=== PATIENT | female | born 1970 | race Caucasian/White ===

== ENCOUNTER 2018-02-12 16:10 | Inpatient (IN) | payer OTHER ==
[~2018-02-12] VITALS: Ht 162.6 cm; Wt 66.3 kg
[~2018-02-12 16:10] MED LIST: ATIVAN0.5 M1 PO; BUPROPION300 MG; BUSPIRONE HCL10 M1 PO; BUSPIRONE HCL15 M1 PO; CLONIDINE0.2 MG; CYCLOBENZAPRINE10 M1 PO; CYCLOBENZAPRINE5 M2 PO; FLUOXETINE HYDR40 MG PO; GABAPENTIN300 M2 PO; LIDODERM 5% PAT1 PAT TOP; METHYLPHENIDATE20 M2 PO; MULTIVITAMIN1 TAB PO; NEURONTIN300 M1 PO; NUVIGIL250 M1 PO; NUVIGIL250 MG PO; ONCE DAILY1 EACH PO; OXYCODONE HCL5 M1 PO; PROAIR HFA0.09 MG/Ac INH; TIZANIDINE4 MG; TRAMADOL HCL50 M1 PO; TRAZODONE HCL100 M1 PO; VALACYCLOVIR1 GM PO
--- NOTE | 2018-02-12 16:15 | ED PSYCHIATRIC COMPLAINT ---
History of Present Illness General Chief Complaint: Psychiatric Related Complaint Stated Complaint: BIBA +SI, +ETOH POLICE PAPERED Source: patient, EMS, police Exam Limitations: intoxication Vital Signs & Intake/Output Vital Signs & Intake/Output Vital Signs Date Time Temp Pulse Resp B/P B/P Pulse O2 O2 Flow FiO2 Mean Ox Delivery Rate 02/14 1937 98.2 88 144/80 02/14 193 98.2 88 144/80 02/14 1615 92 128/78 02/14 1556 92 128/78 02/14 1231 100 132/78 02/14 1230 100 132/78 02/14 0805 98.2 93 121/87 Allergies Coded Allergies: Penicillins (PER PT WAS TOLD A KID 03/12/16) Reconcile Medications Albuterol Sulfate (Proair Hfa) 0.09 MG/Actuation BERNADETTE 2 PUFF INH PRN ASTHMA ( Reported) Armodafinil (Nuvigil) 250 MG TABLET 1 TAB PO DAILY SLEEP DISORDER (Reported) Buspirone HCl 15 MG TABLET 1 TAB PO BID MENTAL HEALTH Cyclobenzaprine HCl 5 MG TABLET 1 TAB PO TIDPRN MUSCLE SPASM FLUOXETINE HCL (Fluoxetine Hydrochloride) 40 MG CAP 1 CAP PO DAILY MENTAL HEALTH (Reported) Gabapentin 300 MG CAPSULE 2 TAB PO TID ANXIETY Lidocaine HCl (Lidoderm Patch) 5 % PAT 1 PAT TOP PRN PAIN (Reported) may wear up to 12 hours Lorazepam (Ativan) 0.5 MG TABLET 1 TAB PO TAPER Alcohol withdrawal Take 2 tablets tonight at 8pm Then take 1 tablet every at 8am and 8pm on tuesday03/24/16 Multivitamin (Once Daily) 1 EACH TABLET 1 TAB PO DAILY MULTIVITAMIN Oxycodone HCl 5 MG TABLET 1 TAB PO 5 TIMES A DAY PRN PAIN (Reported) Tramadol HCl 50 MG TABLET 1 TAB PO Q6P PRN PAIN (Reported) Trazodone HCl 100 MG TABLET 1-2 TAB PO QPM SLEEP (Reported) VALACYCLOVIR HCL (Valacyclovir) 1 GM TAB 1 TAB PO PRN COLD SORES (Reported) Triage Nurses Notes Reviewed? yes Onset: Abrupt Duration: unknown duration Timing: recent history HPI: 47-year-old female brought into the emergency room intoxicated with suicidal comments. Patient was brought in by ambulance and police. Patient was reportedly making suicidal comments to her friend over Facebook. She has a history of alcoholism. She denies any other illicit drug use. History is limited secondary to the fact the patient is intoxicated. She lives by herself. Police report that she was making multiple suicidal comments to them saying she wants to . She denies having any support. (Jarrod Blanc) Past History Travel History Traveled to [place] past 21 day No Medical History Any Pertinent Medical History? see below for history Neurological: NONE EENT: NONE Cardiovascular: NONE Respiratory: NONE Gastrointestinal: NONE Hepatic: NONE Renal: NONE Musculoskeletal: degen joint disease Psychiatric: depression, ADHD Endocrine: NONE Blood Disorders: NONE Cancer(s): NONE COUNTER HELP/Reproductive: NONE History of MRSA: No History of VRE: No History of CDIFF: No Surgical History Surgical History: NECK SURGERY, TONSILLECTOMY, CARPAL TUNNEL Psychosocial History Who do you live with Patient/Self Services at Home None What is your primary language Vietnamese Family History Family History, If Any: MOTHER Brain cancer Relation not specified for: *No pertinent family history Colon cancer in mother Hypertension in father Hx Contributory? No (Jarrod Blanc) Review of Systems Review of Systems Constitutional: Reports: no symptoms. EENTM: Reports: no symptoms. Respiratory: Reports: no symptoms. Cardiovascular: Reports: no symptoms. GI: Reports: no symptoms. Genitourinary: Reports: no symptoms. Musculoskeletal: Reports: no symptoms. Skin: Reports: no symptoms. Neurological/Psychological: Reports: see HPI. Hematologic/Endocrine: Reports: no symptoms. Immunologic/Allergic: Reports: no symptoms. All Other Systems: Reviewed and Negative (Jarrod Blanc) Physical Exam Physical Exam General Appearance: well developed/nourished, mild distress, intoxicated Head: atraumatic Eyes: Bilateral: normal appearance, EOMI. Ears, Nose, Throat: hearing grossly normal Neck: normal inspection Respiratory: no respiratory distress Extremities: normal range of motion Neurological/Psychiatric: awake, agitated Appearance/Memory/Insight: disheveled, impaired insight Behavoir/Eye Contact/Speech: avoids eye contact Thoughts/Hallucinations: incoherent Skin: intact, normal color, warm/dry (Jarrod Blanc) SAD PERSONS Done? CRISIS CONSULT OBTAINED (Nilda BUCKLEY,Dany White) Progress Differential Diagnosis: dementia, drug intoxication, drug overdose, drug withdrawal, electrolyte abnormality, encephalitis Plan of Care: Orders Procedure Date/time Status Regular Diet 02/14 B Active URINE 02/14 1255 Active INIT HSP (30 MIN) 02/14 UNK Complete Change service to 02/14 UNK Active Lab Add-on Test 02/14 UNK Active CIWA 02/14 UNK Active MISSING MEDICATION FORM 02/14 UNK Active Vital Signs 02/13 2158 Active Inpt Psych Teach/Educate 02/13 2158 Active Nutritional Intake, Monitor 02/13 2158 Active Inpt Psych Auricular Acupunctu 02/13 2158 Active Patient Data - inpatient psych 02/13 2130 Active Admit to inpatient psych 02/13 2130 Active Vital Signs 02/13 UNK Complete Activity/Ambulation 02/13 UNK Complete TSH REFLEX 02/12 1629 Complete TOTAL TRIODOTHYROXINE 02/12 1629 Complete LIPID PANEL 02/12 1629 Complete GLYCOSYLATED HGB 02/12 1629 Complete FREE T4 02/12 1629 Complete Current Medications Sig/Bailee Start time Last Medication Dose Stop Time Status Admin Fluoxetine HCl 50 MG DAILY 02/15 0900 AC (Prozac) Budesonide/ 2 PUF BID 02/14 2100 AC Formoterol Fumarate (SYMBICORT) Gabapentin 900 MG TID 02/14 2100 AC (Neurontin) Trazodone HCl 200 MG AT BEDTIME 02/14 2100 AC (Desyrel) Folic Acid 1 MG DAILY 02/14 1715 AC 02/14 (Folic Acid) 02/16 0901 1725 Lidocaine 1 PAT DAILY PRN 02/14 1715 AC (Lidoderm) Thiamine HCl 100 MG DAILY 02/14 1715 AC 02/14 (Vitamin B1) 02/16 0901 1725 Multivitamins 1 TAB DAILY 02/14 1701 AC 02/14 (Theragran Vitamins) 1726 Albuterol Sulfate 2 PUF Q6P PRN 02/14 1700 AC (Ventolin) Gabapentin 300 MG Q8P PRN 02/14 1700 AC (Neurontin) Acetaminophen 650 MG Q6P PRN 02/14 1030 AC (Tylenol) Al Hydroxide/Mg 30 ML Q4-6 PRN PRN 02/14 1030 AC Hydroxide (Maalox Plus) Benztropine Mesylate 1 MG Q6P PRN 02/14 1030 AC (Cogentin 1 MG Tablet) Benztropine Mesylate 1 MG Q6P PRN 02/14 1030 AC (Cogentin) Haloperidol 5 MG Q6P PRN 02/14 1030 AC (Haldol) Haloperidol 5 MG Q6P PRN 02/14 1030 AC (Haldol) Lorazepam 2 MG Q6P PRN 02/14 1030 AC (Ativan) Magnesium Hydroxide 30 ML AT BEDTIME NEED.. 02/14 1030 AC (Milk Of Magnesia) Nicotine 2 MG Q2P PRN 02/14 1030 AC (Nicotine) Buspirone HCl 15 MG BID 02/14 0900 AC 02/14 (Buspar) 1036 Methylphenidate HCl 20 MG DAILY 02/14 0900 AC 02/14 (Ritalin) 1037 Cyclobenzaprine HCl 5 MG TIDPRN 02/13 2200 AC (Flexeril 5MG Tab) Lorazepam 1 MG Q1 NEEDED PRN 02/13 2145 AC (Ativan) Lorazepam 2 MG Q1 NEEDED PRN 02/13 2145 AC (Ativan) Hand-Off Endorsed To: Roxi BUCKLEY,Nick Whitlock Endorsed Time: 2312 Pending: consult (crisis) (Jarrod Blanc) Departure Departure Disposition: STILL A PATIENT Condition: Stable Referrals: Willard Patel MD (PCP/Family) Departure Forms: Customer Survey General Discharge Information (Jarrod Blanc) Departure Clinical Impression Primary Impression: Suicidal ideation Secondary Impressions: Alcohol abuse Psych Admission Note Psychiatric Admission: I have seen and evaluated ATIF THOMAS. I have also reviewed all the pertinent lab results and diagnostic results. ATIF THOMAS will be admitted to our inpatient Psychiatric unit for treatment and care. (Nilda BUCKLEY,Dany White)
[2018-02-12 16:39] LABS: ABSOLUTE BASOPHIL COUNT 0 /CUMM (0.0-0.2); ABSOLUTE EOSINOPHIL COUNT 0.3 /CUMM (0.0-0.7); ABSOLUTE GRANULOCYTE CT 4.8 /CUMM (1.4-6.5); ABSOLUTE LYMPH COUNT 1.6 /CUMM (1.2-3.4); ABSOLUTE MONOCYTE COUNT 0.6 /CUMM (0.10-0.60); BASOPHIL % 0.3 % (0.0-2.0); EOSINOPHIL % 3.8 % (0-5); GRANULOCYTE % 65.6 % (42.2-75.2); HEMATOCRIT 42.2 % (37-47); MEAN CORPUSCULAR HGB 31.3 PG (27.0-31.0); MEAN CORPUSCULAR HGB CONC 33.3 G/DL (33.0-37.0); MEAN CORPUSCULAR VOLUME 94.1 FL (81.0-99.0); MEAN PLATELET VOLUME 6.7 FL (7.4-10.4); PLATELET COUNT 337 /CUMM (130-400); RBC DISTRIBUTION WIDTH 13.4 % (11.5-14.5); RED BLOOD CELL CT 4.49 /CUMM (4.20-5.40); WHITE BLOOD CELL COUNT 7.3 /CUMM (4.8-10.8)
--- NOTE | 2018-02-12 16:40 | ED PSY CRISIS COLLATERAL NOTE ---
Collateral Note Collateral Note Family/Inform/Lyla Contacts: Spoke to Alvaro Blanca listed in Emergency Contacts. He reported that Linda from [employer] [facility] [employer] [phone] had called him reporting that Diana had called her and said "goodbye" because she wanted to commit suicide. Linda, after calling Alvaro, called the police to conduct a wellness check, which then resulted in her being brought to the ED. Alvaro reported he had seen Diana this morning and "she's acting funny lately", i.e. she's not herself, more depressed, anxious about losing her house. He feels she's giving up and "throwing her hands up in the air". He stated he's "been there for her so much it's starting to become enabling" and so he is "going to do what he can and then walk". He encouraged us to keep her here because he is very concerned for her.
--- NOTE | 2018-02-13 07:51 | ED PSYCH CRISIS CONSULTATION ---
Crisis Consult Basic Assessment Date of Consult: 02/13/18 Responsible Person/Accompanied By: self/biba/peer Insurance Authorization: Insurance #1: Insurance name: SUSIE MARION Phone number: Policy number: [id number] Group number: Authorization number: ED Provider: Patient's ED Provider: Jarrod Blanc Primary Care Physician: Patient's PCP: Willard Patel MD PCP's Current Psychiatrist: medications are ordered by PCP Willard Patel [phone] Chief Complaint: Psychiatric Related Complaint Patient's Quote: I don't know why I"m here Present Illness: Pt is a 47 yo female biba yesterday to [facility] on a [place] [employer] PEER. PEER documents that pt made statements that she wants to and has plan to her Trazadone pills with alcohol. Pt ED BAL was 333 and tox screen was positive for cocaine.Former Counselor from [employer] notified 911 that she received a message yesterday from Diana thanking her for helping her but she cant take things anymore and was planning to kill herself. Previous medical record indicates prior SI while intoxicated and a possible suicide attempt by intentional pill overdose. Pt was admitted to [facility] in Aug 2015 for depression and substance use issues. Pt has a long hx of drug and alcohol abuse with several different attempts at detox and longer term rehabs. Pt most recently was in [facility] residential program and currently attends 1x/wk recovery group at [facility]. Pt reports recent relapse past two weeks with etoh and crack cocaine use. Pt reports primary trigger is feeling overwhelmed with planned foreclosure on February 13 and not knowing what she will do next. Pt appears to have limited supports other that friend Paresh. In ED pt refused attempt made by her sister Chinyere to contact her. Pt reports having no recollection of making suicide statements to [facility] Counselor or [place] [employer] due to intoxification. When collateral was gathered to piece the information together and presented back to pt she didn't dispute the idea of making said statements though she denies current SI. Pt denies HI; AH/VH; no prescence of psychotic thinking. Pt reports feeling hopeless and helpless; porr sleep; appetite and having no energy or motivation. Pt presents as sad with flat affect. Pt is OX3. CSSRS completed. Case reviewed with Dr Roger with recommendation for inpatient psychiatric treatment. Plan reviewed with pt agreeing to sign voluntary form for admission to [facility]. Patient's Address: [address] [place] [address] Other Who Do You Live With? Patient/Self Family/Informants Interviewed: Alvaro Owensd [phone]. see collateral note. Allergies - Coded Allergies: Penicillins (PER PT WAS TOLD A KID 03/12/16) Current Medications - Scheduled Medications Armodafinil (Nuvigil) 250 MG TABLET 1 TAB PO DAILY SLEEP DISORDER (Reported) Entered as Reported by Kathy Emery on 03/12/16 213 Buspirone HCl 15 MG TABLET 1 TAB PO BID MENTAL HEALTH 30 Days Prescribed by Ryan Rodriguez on 03/23/16 Cyclobenzaprine HCl 5 MG TABLET 1 TAB PO TIDPRN MUSCLE SPASM 30 Days Prescribed by Ryan Rodriguez on 03/23/16 FLUOXETINE HCL (Fluoxetine Hydrochloride) 40 MG CAP 1 CAP PO DAILY MENTAL HEALTH #30 (Reported) Entered as Reported by Kathy Emery on 08/08/15 1628 Gabapentin 300 MG CAPSULE 2 TAB PO TID ANXIETY 30 Days Prescribed by Ryan Rodriguez on 03/23/16 Lorazepam (Ativan) 0.5 MG TABLET 1 TAB PO TAPER Alcohol withdrawal #4 TAB Prescribed by Ryan Rodriguez on 03/23/16 Multivitamin (Once Daily) 1 EACH TABLET 1 TAB PO DAILY MULTIVITAMIN 30 Days Prescribed by Ryan Rodriguez on 03/23/16 Trazodone HCl 100 MG TABLET 1-2 TAB PO QPM SLEEP (Reported) Entered as Reported by Kathy Emery on 08/08/15 1630 Scheduled PRN Medications Albuterol Sulfate (Proair Hfa) 0.09 MG/Actuation BERNADETTE 2 PUFF INH PRN ASTHMA ( Reported) Entered as Reported by Kathy Emery on 08/08/15 1630 Lidocaine HCl (Lidoderm Patch) 5 % PAT 1 PAT TOP PRN PAIN #30 (Reported) Entered as Reported by Kathy Emery on 08/08/15 1632 Oxycodone HCl 5 MG TABLET 1 TAB PO 5 TIMES A DAY PRN PAIN (Reported) Entered as Reported by Kathy Emery on 08/08/15 1629 Tramadol HCl 50 MG TABLET 1 TAB PO Q6P PRN PAIN #120 (Reported) Entered as Reported by Kathy Emery on 03/12/16 2140 VALACYCLOVIR HCL (Valacyclovir) 1 GM TAB 1 TAB PO PRN COLD SORES #27 ( Reported) Entered as Reported by Kathy Emery on 08/08/15 1630 Laboratory Results: Laboratory Tests 02/12/18 1639: Urine Opiates Screen < 100, Methadone Screen < 40, Barbiturate Screen 62, Ur Phencyclidine Scrn < 6.00, Amphetamines Screen < 100, U Benzodiazepines Scrn < 85, Urine Cocaine Screen > 1000 H, Urine Cannabis Screen < 5.00 02/12/18 1629: Anion Gap 17 H, Estimated GFR > 60, BUN/Creatinine Ratio 25.0, Glucose 104 H, Calcium 9.0, Total Bilirubin 0.3, AST 35, ALT 23, Alkaline Phosphatase 79, Total Protein 6.6, Albumin 4.0, Globulin 2.6, Albumin/Globulin Ratio 1.5, CBC w Diff NO MAN DIFF REQ, RBC 4.49, MCV 94.1, MCH 31.3 H, MCHC 33.3, RDW 13.4, MPV 6.7 L, Gran % 65.6, Lymphocytes % 21.8, Monocytes % 8.5, Eosinophils % 3.8, Basophils % 0.3, Absolute Granulocytes 4.8, Absolute Lymphocytes 1.6, Absolute Monocytes 0.6, Absolute Eosinophils 0.3, Absolute Basophils 0, Serum Alcohol 333.0 Past History Past Medical History Neurological: NONE EENT: NONE Cardiovascular: NONE Respiratory: NONE Gastrointestinal: NONE Hepatic: NONE Renal: NONE Musculoskeletal: degen joint disease Psychiatric: depression, ADHD Endocrine: NONE Blood Disorders: NONE Cancer(s): NONE 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 Past Surgical History Surgical History: NECK SURGERY, TONSILLECTOMY, CARPAL TUNNEL Psychosocial History Strengths/Capabilities: Supportive family and friends Has interests like her cats, gardening, being outside Has had periods of sobriety in the past Physical Limitations (Interventions): Chronic back pain s/t degenerative disc disease Psychiatric Treatment History Psych Treatment Psychiatric Treatment Yes Inpatient Treatment Yes Outpatient Treatment Yes Location of Treatment [place] Aug 2015 [facility] Reason for Treatment SI/depression/etoh /polysubstance Response to Treatment pt has struggled with substance abuse issues; pt prescribed medications by PCP- Prozaaneudy and Trazadone Diagnosis by History: Major Depression, Alcohol Abuse, Opiate Abuse Substance Use/Abuse History Drug Use/Abuse 1 Substances Used/Abused Yes Substance Used/Abused Alcohol Last Used yesterday How much used/taken undetermined-BAL 330 How often daily past 2 weeks Drug Use/Abuse 2 Substances Used/Abused Yes Substance Used/Abused Crack Cocaine Last Used yesterday How often frequent use past 2 weeks Substance Abuse Treatment Substance Abuse Treatment Past Substance Abuse TX Yes Inpatient Treatment Yes Outpatient Treatment Yes Location of Treatment [facility]; [facility]; [facility]; [facility]; [facility]; [facility]; Reason for Treatment etoh/polysubstances Dates of Treatment long hx of tx programs Response to Treatment pt has had long periods of sobriety; multiple rehabs; recovery and relapse episodes past 3 yrs. Comments: Pt reports long hx of substance abuse and rehabs. Pt reports recently discharged from [facility] residential and recently relapsed. Pt reports recent undeterimed amout of etoh and cocaine Current Mental Status Mental Status Orientation: Person, Place, Situation Affect: Depressed, Flat, Hopeless, Sad Speech: WNL Neuro-vegetative: Anhedonia, Concentration Poor, Energy Decreased, Helpless, Loss of Interest, Sleep Disturbance Appearance Appearance- Dress/Hygiene: pt in hospital scrubs; somnalent/lethargic; reports head ache; flat; disheveled. Behaviors Thought Process: WNL Thought Content: WNL Memory: WNL Insight: Fair SI/HI Risk Assessment Past Suicidal Ideation/Attempts Yes Current Suicidal Ideation/Att Yes Past Homicidal Ideation/Att: No Current Homicidal Ideation/Attempts No Degree of Intent: Thoughts/No Intent Danger To: Self Gravely Disabled: Poor Impulse Control, Poor Judgment Risk Factors: access to lethal means, high anxiety/distress, history of suicide atmpts, SA/MH hospitalized, substance abuse, poor impulse control, lives alone, limited support Lethality Ratin PTSD Checklist PTSD Done? patient declined ED Management Sitter: Yes Restraints: Yes DSM5/PS Stressors/Medical Prob Diagnosis' (DSM 5, Stressors, Medical): Unspecified Depression F32.9 Alcohol Use D/O F10.20 Cocaine Use D/O F 12.20 foreclosure relapse Current GAF: 25 Comments: Pt reports feeling overwhelmed with foreclosure and having to move all her stuff out and find a new place to live by February 13. Pt reports recent relapse etoh and cocaine. Departure Disposition Psych Medical Clearance Date: 02/13/18 Medically Cleared at: 1015 Time Started: 1015 Time Ended: 1100 Psychiatrist Consulted: Maggy Roger MD Date Disposition Established: 02/13/18 Time Disposition Established: 1744 Plan for Disposition - Modality: Inpatient Psychiatry Facility: [facility] Rationale for Disposition: Mood stabilization; medication assessment Type of IP Admission: Voluntary Referrals Willard Patel MD (PCP/Family)
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
[2018-02-14] VITALS (7 sets, daily range): BP systolic 121–144; BP diastolic 78–87
--- NOTE | 2018-02-14 10:18 | History & Physical ---
General Information and HPI MD Statement: I have seen and personally examined ATIF THOMAS and documented this H&P. The patient is a 47 year old F who presented with a patient stated chief complaint of . "I don't know why I am here" Source of Information: patient, EMS Exam Limitations: unable to give history History of Present Illness: 47-year-old white female was brought in by ambulance cause of suicidal ideations and alcohol excess [employer] police paper he came to the ER intoxicated with suicidal comments in the ER blood alcohol level was 333 and oxycodone screen was positive for cocaine a recent relapse of alcohol 2 weeks ago also with crack cocaine use feeling overwhelmed with planned for closure of her house on February 13 Allergies/Medications Allergies: Coded Allergies: Penicillins (PER PT WAS TOLD A KID 03/12/16) Home Med list Albuterol Sulfate (Proair Hfa) 0.09 MG/Actuation BERNADETTE 2 PUFF INH PRN ASTHMA ( Reported) Armodafinil (Nuvigil) 250 MG TABLET 1 TAB PO DAILY SLEEP DISORDER (Reported) Buspirone HCl 15 MG TABLET 1 TAB PO BID MENTAL HEALTH Cyclobenzaprine HCl 5 MG TABLET 1 TAB PO TIDPRN MUSCLE SPASM FLUOXETINE HCL (Fluoxetine Hydrochloride) 40 MG CAP 1 CAP PO DAILY MENTAL HEALTH (Reported) Gabapentin 300 MG CAPSULE 2 TAB PO TID ANXIETY Lidocaine HCl (Lidoderm Patch) 5 % PAT 1 PAT TOP PRN PAIN (Reported) may wear up to 12 hours Lorazepam (Ativan) 0.5 MG TABLET 1 TAB PO TAPER Alcohol withdrawal Take 2 tablets tonight at 8pm Then take 1 tablet every at 8am and 8pm on tuesday03/24/16 Multivitamin (Once Daily) 1 EACH TABLET 1 TAB PO DAILY MULTIVITAMIN Oxycodone HCl 5 MG TABLET 1 TAB PO 5 TIMES A DAY PRN PAIN (Reported) Tramadol HCl 50 MG TABLET 1 TAB PO Q6P PRN PAIN (Reported) Trazodone HCl 100 MG TABLET 1-2 TAB PO QPM SLEEP (Reported) VALACYCLOVIR HCL (Valacyclovir) 1 GM TAB 1 TAB PO PRN COLD SORES (Reported) Compliance With Home Meds: UNKNOWN Past History Travel History Traveled to [place] past 21 day No Medical History Neurological: NONE EENT: NONE Cardiovascular: NONE Respiratory: NONE Gastrointestinal: NONE Hepatic: NONE Renal: NONE Musculoskeletal: degen joint disease Psychiatric: depression, ADHD Endocrine: NONE Blood Disorders: NONE Cancer(s): NONE 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 self Services at Home: None Primary Language: Hungarian ETOH Use: occasional use Illicit Drug Use: denies illicit drug use Functional Ability ADLs Independent: dressing, eating, toileting, bathing. Ambulation: independent IADLs Independent: shopping, housework, finances, food prep, telephone, transportation , medication admin. Review of Systems Review of Systems Constitutional: Reports: see HPI. Exam & Diagnostic Data Last 24 Hrs of Vital Signs/I&O Vital Signs Date Time Temp Pulse Resp B/P B/P Pulse O2 O2 Flow FiO2 Mean Ox Delivery Rate 02/14 0805 98.2 93 121/87 02/13 1906 98.1 80 18 113/65 97 Room Air 02/13 1528 98.6 99 18 113/68 93 Room Air Intake & Output 02/14 1600 02/14 0800 02/14 0000 Intake Total Output Total Balance Patient 146 lb Weight Physical Exam General Appearance Alert, Oriented X3, Cooperative, teary. Skin No Rashes, No Breakdown HEENT PERRLA, EOMI Neck Supple, No JVD, No thryomegaly, +2 Carotid Pulse wo Bruit, No LAD Lymphatic Axillary nl, Cervical nl Cardiovascular Regular Rate, No Murmurs Lungs Clear to Auscultation, Normal Air Movement Abdomen Soft, No Tenderness, No Hepatospenomegaly Neurological Exam Findings: Normal Speech, Strength at 5/5 X4 Ext, Normal Tone, Sensation Intact, Cranial Nerves 3-12 NL, Reflexes 2+ (gait not tested) Cranial Nerves II through XII: Intact Extremities No Edema, Normal Pulses, No Tenderness/Swelling Vascular Normal Pulses, Pulses Symmetrical Last 24 Hrs of Labs/Ollie: Laboratory Tests 02/12/18 1639: Urine Opiates Screen < 100, Methadone Screen < 40, Barbiturate Screen 62, Ur Phencyclidine Scrn < 6.00, Amphetamines Screen < 100, U Benzodiazepines Scrn < 85, Urine Cocaine Screen > 1000 H, Urine Cannabis Screen < 5.00 02/12/18 1629: Anion Gap 17 H, Estimated GFR > 60, BUN/Creatinine Ratio 25.0, Glucose 104 H, Calcium 9.0, Total Bilirubin 0.3, AST 35, ALT 23, Alkaline Phosphatase 79, Total Protein 6.6, Albumin 4.0, Globulin 2.6, Albumin/Globulin Ratio 1.5, CBC w Diff NO MAN DIFF REQ, RBC 4.49, MCV 94.1, MCH 31.3 H, MCHC 33.3, RDW 13.4, MPV 6.7 L, Gran % 65.6, Lymphocytes % 21.8, Monocytes % 8.5, Eosinophils % 3.8, Basophils % 0.3, Absolute Granulocytes 4.8, Absolute Lymphocytes 1.6, Absolute Monocytes 0.6, Absolute Eosinophils 0.3, Absolute Basophils 0, Serum Alcohol 333.0 Assessment/Plan As Ranked By This Provider Problem List: 1. Depression 2. Alcohol intoxication 3. Alcohol dependence Miscellaneous Miscellaneous Documentation Attending Case Discussed With: Maggy Roger MD Primary Care Physician: Willard Patel MD Patient sees these Specialists Psychiatry Level of Patient Care: [facility] Consults Needed: Consulting Specialty: Psychiatry Consulting Physician: Maggy Roger MD Reason for Consult: suicidal ideations, depression alcohol excess cocaine use
--- NOTE | 2018-02-14 14:33 | SOCIAL WORKER PROG NOTE PSYCH ---
Social Work Progress Note Progress Note Diana was in bed at 2pm. Introduced myself and prompted her to meet. She asked if we could me later. I told her my time was limited and I really would like to talk now if that was okay. She got up. She reported being very tired/ fatigued and unmotivated to do anything today. Tried to talk with her about what is happening. She gave me some information, but was not engaged in talking much today. She did report that she was drinking and "said something stupid" and that's why she was brought in. She doesn't remember what she said or who she said it to. She expressed feeling very overwhelmed with the idea that she will lose her house this coming Tuesday. She said she didn't realize she would only have a week to pack up and go. She said she doesn't know what to do and doesn't know where she is going. She has lived in this house for 10 years. She reports [facility] a [facility] years. I asked about her supports and who is available to help her? She mentioned her best friend Luis- who is also an ex-boyfriend. She said he has been there for her, but he is upset with her right now for drinking. She said she has not spoken with him since being here and will plan to call him trever. She refused to sign a release for him today. She said that she was clean and sober for 5 months. She was staying at [facility] for 5 months and reports being sober through that time. She has stayed connected with [facility] in [place] doing their relapse prevention group. She reports having a therapist there named Elza. Refused to sign a release for [facility] today as well. Denies SI today. Reported she really doesn't want to talk about things it's too much for her today. She was tearful. Wanted to return to bed. We ended our discussion at that point.
--- NOTE | 2018-02-14 16:56 | CPS PROVIDER INIT ASMT PSYCH ---
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 Chief Complaint: SI. Reaction to Hospitalization: "I don't mind being here but just have things to do." History of Present Illness Onset of Illness: Feeling more depressed x 1 month. Circumstances Leading to Admission: Served foreclosure/eviction notice. Problem(s) Justifying Need for Admission: SI. Other HPI: Feels "just tired." States she is here "because you guys made me stay." Has to be out of her home by 02/17/18. States that "I got really drunk, I guess. Sent out some stupid stuff." Doesn't remember details of suicidal comment(s). Reports she says "stupid stuff" when she drinks. States that she would never act on SI. Reports that she has nowhere to go and that nothing is packed. Feeling a little depressed x 1 month. Sleep: good. Appetite: alright. Energy: none since admission. Case and treatment plan discussed in team meeting. Staff reports that the patient is denying SI. CIWA zero. Past Psychiatric History Past Diagnosis(es)- if any: Apparent alcohol and cocaine hx. Past Precipitating Factors- if any: Unknown. - Include inpatient and outpatient treatment Treatment History: Sees Elza at [facility]. Hx multiple inpatient treatments, about 12x, since 1988 for drugs and alcohol. -[facility] in [place]. [facility] in [place]. [facility]. [place]. [facility]. History of Suicide Attempts or Gestures Denied. Substance Abuse History: Tobacco: 1/2 ppd. Alcohol: "don't drink that much." Bought a pint of vodka on Tuesday. Cocaine: smoked on Tuesday. Had been clean x 5 months. No other drugs. Allergies: Coded Allergies: Penicillins (PER PT WAS TOLD A KID 03/12/16) Home Med List: Prozac 40 mg daily. Trazodone 200 mg qhs. Gabapentin 900 mg tid. Nuvigil 250 mg daily. Inhalers, including Albuterol. Lidoderm patch prn. - Include any medical condition(s) that may - impact the patient's recovery/remission Past Medical History: Asthma. Back and neck issues from DJD. R carpal tunnel repair. Has L carpal tunnel. Arthritis. 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 Psychiatric Family/Social Hx Family History Psychiatric Illness: Denied. Substance Use: Father alcoholic. Suicides: Denied. Social History Living Situation: Lives alone. Significant Relationships (family/friends): . No children. Supports: sister, father, best friend, Luis, but doesn't want to bother them. Education: Some college. 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 Legal: Hx multiple arrests, including assault 2 years ago. Will be off probation on 03/04/18. Healthly Behaviors Screening Tobacco Screening Tobacco Use from ED Docu: Current Daily Use Daily Tobacco Use Amount/Type: => 5 Cigarettes daily - If tobacco counseling indicated - the following topics are required. - #1 Recognizing dangerous situations. - #2 Coping Skills. - #3 Basic information about quitting. Status of Tobacco Cessation Counseling: #1, #2 AND #3 Completed Cessation Med Status Nicotine Gum Ordered Alcohol Screening - ETOH screen POS if BAL >=80 or Audit-C>= M4/F3 Audit-C Score from Diag Assess: 12 Blood Alcohol Level: Laboratory Tests 02/12 1629 Toxicology Serum Alcohol (<10 MG/DL) 333.0 Alcohol Use Screening Results: Pos per Audit C &/or BAL - If ETOH counseling indicated - the following topics are required. - #1 Express concern about the patient's - drinking at unhealthy levels, include informing - of national norms for moderate drinking: - men <= 14 drinks/week, max 4 drinks/occasion - women <= 7 drinks/week, max 3 drinks/occasion - #2 Providing feedback, including linking alcohol to - negative physical effects (liver injury, hypertension) - negative emotional effects (relationship problems and - depression) - negative occupational consequences (reduced work - performance) - #3 Advising the patient to abstain from alcohol or - to drink below national norms for moderate drinking - (as listed above). Status of ETOH Use Counseling: #1, #2 AND #3 Completed. Metabolic Screening - Screen if on a Neuroleptic Medication - Metabolic screening should include: - Blood Pressure, BMI, Glucose or Hgb A1c, & a - Lipid profile from within the past 365 days. Metabolic Screening ([x]) Not Applicable, patient not on a neuroleptic. OR () Patient on a neuroleptic(s) . Enter below results for Hemoglobin A1C, and lipid panel if obtained during the last 365 days. BMI: 25.000 Blood Pressure: 128/78 Laboratory Results From [facility] (If applicable): Exam and Plan Mental Status Examination Ambulation Status: No gait disturbance. Appearance: Was asleep in her room but got up and met with us in office. WF, appears stated age. Attitude towards examiner: Calm, polite and cooperative. Psychomotor activity: No psychomotor agitation/retardation. Behavior: Unremarkable. Quality of speech: Normal in volume, rate and tone. Affect: Calm and depressed. Mood: "Alright/tired." Wants to go back to bed. Sad /10. Anxiety /10. Denies feeling hopeless or helpless. Feels worthless. Feels guilty for everything. Suicidal Ideation: Denies active SI. Has passive SI. Gives a safety promise for here. Homicidal Ideation: Denies HI. Hallucinations: Denies AH and VH. Paranoid/Delusional Material: Denies PI and magical montero. Difficulties with thought organization: None. Insight: Limited. Judgment: Was poor, better now. Orientation: Ox3. Cognition: Grossly intact. Memory Function: Grossly intact. Estimate of intellectual functioning: Average. Assets/Strengths Patient Identified Assets/Strengths: "I don't even know right now." Impression/Plan Impression and Plan: Patient is here with passive SI in the context of substance relapse and foreclosure. - Include all active medical diagnosis that require tx DSM 5 Diagnosis(es): Unspecified depression. Alcohol use disorder. Cocaine use disorder. - Initial Tx Plan for Active Psych & Medical Conditions Treatment Plan: Monitor on the unit for safety and mood disorder. Additional information is needed from collaterals: family, friend and OPT. Patient agrees to increase Prozac to 50 mg daily. Ritalin is substituting for Nuvigil. - Factors that would help patient function - in a less restrictive setting. Factors: Not suicidal.
[2018-02-15] VITALS (8 sets, daily range): BP systolic 109–130; BP diastolic 59–67
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
--- NOTE | 2018-02-15 11:34 | SOCIAL WORKER PROG NOTE PSYCH ---
Social Work Progress Note Progress Note Diana was up and attending groups this morning. She said she was having a better day today. She is on board with the idea of discharging tomorrow so she can take care of her housing situation. She said she slept well last night. I asked if she had called her friend Luis? She said she didn't last night and the phones were off during group. I offered to call together during our meeting. She said that was fine. We were able to reach Luis who was busy at work, but took a few minutes to talk. Diana was tearful. Luis told me that he often enables Diana and helps her out when she really should experience consequences. He said he will pick her up from the hospital, but she is not living with him and she'll have to figure that part out on her own. He said that "Sienna" was at her house. Apparently Diana told this person she could stay there. Diana uses with her. Diana said she's going to tell her to leave and she didn't see that as being a problem. Diana asked Luis if she can still work for him? He said yes, but he was not going to be bothering/ begging her to work and it was up to her. At that point Luis needed to get back to work so we ended the call. Diana was emotional stating he was right that he supports her alot. Asked her what her thoughts were about where she would be living? She said she really didn't know, but would figure it out. She said if worse came to worse Luis may pay for her to be in a hotel. She is grieving the loss of her things. She is anticipating only being able to take some clothes with her. She has a house full of stuff that has accumulated over 10 years. Despite all of this, she is trying to remain positive and hopeful that things will work out. I tried talking to her about aftercare at [facility]. She said she isn't sure if she is going to go back there. She feels like she needs to handle all of this other stuff right now. I said that was true, but she also could benefit from the support of someone to talk to. She agreed to sign a release for [facility] so we could fax her d /c paperwork. She then asked to stop the conversation stating "I can't talk about this anymore."
--- NOTE | 2018-02-15 13:48 | CP SOUTH PROGRESS NOTE PSYCH ---
Psych (Inpt) Progress Note Progress Note Include the following elements, when applicable: Involvement in the active treatment of the patient with behavioral observations of the patient and the patient's response to the treatment. Review of the ongoing treatment process in the context of the treatment plan. Indication of how multi-disciplinary staff members are carrying out the treatment plan. Plans for future interventions and recommendations for revision of the treatment plan. Liaison with other physicians/providers. Progress Note: Case and treatment plan discussed in team meeting. Staff reports that the patient is denying suicidal ideation. Isolating. Was not attending groups. CIWA negative. Patient seen at 10:25 AM. She was in group prior to meeting with me in office. Reports doing better today, stating she does not feel like being in bed and is not experiencing so much gloom and doom. Guesses she feels brighter but does not want to say that she is hopeful because she does not know what to be hopeful for. Denies withdrawal symptoms. Affect is calm and blunted, slightly brighter today. Tolerating increase in Prozac dose to 50 mg daily. Mood is okay. Rates sad mood 1-2/10 and anxiety probably 2/10. Denies feeling hopeless, helpless or worthless. Feels guilty for relapsing and hurting people. Denies active and passive suicidal ideation. Denies homicidal ideation. Denies auditory and visual hallucinations and paranoid ideation. Reports she slept well. Describes appetite as good and energy as okay. Tolerating medications well, without complaint. Patient reports she placed a call to her friend, Luis, and she is awaiting his call back. IMPRESSION: Slow progress. Continue present treatment plan. Patient confirms that she needs to get home for eviction on Tuesday. Anticipate discharge tomorrow with referral back to [facility].
[2018-02-16 07:31] VITALS: BP 104/60
[2018-02-16 07:51] VITALS: BP 104/60
--- NOTE | 2018-02-16 10:23 | SOCIAL WORKER PROG NOTE PSYCH ---
Social Work Progress Note Progress Note Dr. Kulkarni and I met with Diana this morning to discuss how she was doing and discharge plans. Diana reported that she was in a "good mood", but somewhat scared due to everything going on with her housing situation. She mentioned that she is going to try and talk to the bank to get an extension. She is hoping for that, but knows it may not happen and seems prepared. She denies any SI/HI, AH/VH. Feels a little sad and anxious given her circumstances. Talked about her follow up and how she would be supported when she leaves. She said that [facility] doesn't have a prescriber to see her, so she would be open to going to [facility]. She is currently on Ritalin, so I told her I would check with the IOP coordinator to see if she would be accepted. Called Jazmin Reilly (IOP Coordinator), informed her of the referral. She will accept Diana on Ritalin as long as she hasn't been abusing a stimulant. Dr. Kulkarni checked the PNP website and it does not appear that it has been misused. She can attend the 11:30 intake today. Informed Diana of this plan. Diana left at 11:30 for intake at [facility].
[2018-02-16] MEDS ORDERED: PROZAC10 M1 PO (10:30)
[2018-02-16] MEDS ORDERED: NICORELIEF2 MG PO (10:30)
[2018-02-16] MEDS ORDERED: PROZAC40 M1 PO (10:30)
[2018-02-16] MEDS ORDERED: RITALIN20 M1 PO (10:30)
[2018-02-16] MEDS ORDERED: ONCE DAILY1 EACH PO (10:30)
[2018-02-16] MEDS ORDERED: BUSPIRONE HCL15 M1 PO (10:30)
[2018-02-16] MEDS ORDERED: GABAPENTIN300 M2 PO ×2 (10:30→12:19)
[2018-02-16] MEDS ORDERED: TRAZODONE HCL100 M1 PO (10:30)
--- NOTE | 2018-02-16 10:38 | Patient Discharge Instructions ---
Psych Discharge Inst General Discharge Information Reason for Admission: Expressed suicidal ideation in the context of foreclosure, cocaine use and alcohol use. Psy Discharge Primary Diag+ Unspecified depression Psy Discharge Secondary Diag+ Hx ADHD Alcohol use disorder Cocaine use disorder Summary Tests/Major Procedures Lab ALT 23 U/L 02/12/18 1629 AST 35 U/L 02/12/18 1629 Anion Gap 17 H 02/12/18 1629 BUN 15 mg/dL 02/12/18 1629 Calcium 9.0 mg/dL 02/12/18 1629 Carbon Dioxide 25 mmol/L 02/12/18 1629 Chloride 106 mmol/L 02/12/18 1629 Cholesterol 188 MG/DL 02/12/18 1629 Cholesterol/HDL Ratio 3 % 02/12/18 1629 Creatinine 0.6 mg/dL 02/12/18 1629 Estimated GFR > 60 ml/min 02/12/18 1629 Free T4 1.62 ng/dL 02/12/18 1629 Glucose 104 mg/dL H 02/12/18 1629 HDL Cholesterol 62 mg/dL H 02/12/18 1629 Hemoglobin A1c 5.4 % 02/12/18 1629 LDL Cholesterol, Calc 109 mg/dL 02/12/18 1629 Potassium 3.7 mmol/L 02/12/18 1629 Sodium 148 mmol/L H 02/12/18 1629 TSH &T3 &Free T4 Intrp 0.089 uIU/mL L 02/12/18 1629 Total T3 0.91 ng/mL L 02/12/18 1629 Triglycerides 88 mg/dL 02/12/18 1629 Hct 42.2 % 02/12/18 1629 Hgb 14.1 G/DL 02/12/18 1629 MCH 31.3 PG H 02/12/18 1629 MPV 6.7 FL L 02/12/18 1629 Plt Count 337 /CUMM 02/12/18 1629 RBC 4.49 /CUMM 02/12/18 1629 WBC 7.3 /CUMM 02/12/18 1629 Serum Alcohol 333.0 MG/DL 02/12/18 1629 Urine Cocaine Screen > 1000 NG/ML H 02/12/18 1639 Urine Test NEGATIVE 02/15/18 0750 Studies Pending at [place]: None. Patient Instructions Contact Information Your Psychiatrist on Annie was Cayla BUCKLEY,Nick * If you are experiencing an emergency related to this hospitalization, please call [phone] to contact the treating psychiatrist or the psychiatrist-on- call. * To Request a copy of your medical records, please contact the Medical Records Department at [phone]. * To request results of studies pending at the time of discharge, please call [phone]. * Continue your Medications until directed to stop by your Healthcare provider. General Medication Information Please continue to take your new medications and your continued home medications , unless otherwise indicated on your discharge medication list, or unless directed by your MD or CASINO FLOOR SUPERVISOR to stop them. Special Instructions Diet Regular Activity Normal Other Inst/Recommendations Stay away from drugs and alcohol. Please see Dr. Patel re:low TSH. - Tobacco Use Treatment Offered Post DC Medications Offered: Script Given-See Med List Post DC Tobacco Treatment Plan: [facility] Tobacco Tx Pgm Program Appt Date: 03/01/18 Program Appt Time: 1600 - EtOH/Drug Use D/O Treatment Offered Post DC Medications Offered: Med Not Indicated for D/O Post DC EtOH/SubAbuse TX Plan: [facility] SubAbuse/Dual IOP Program Appt Date: 02/16/18 Program Appt Time: 1130 Metabolic Screening ([x]) Not Applicable, patient not on a neuroleptic. OR () Patient on a neuroleptic(s) . Enter below results for Hemoglobin A1C, and lipid panel if obtained during the last 365 days. BMI: 25.000 Blood Pressure: 104/60 Laboratory Results From [facility] E[facility] (If applicable): Advance Directives Does the Patient have Medical Advance Directives No/Refused further info Does Pt have Psychiatric Advance Directives? No/Refused further info Does Patient have a Designated Surrogate Decision Maker: No Information About Psychiatric Advance Directives Provided? Refused Discharge Plan Post Hospital Treatment Plan: Returning to home. Referred to [facility] intake today at 11:30 a.m.
--- NOTE | 2018-02-16 11:37 | SOCIAL WORKER PROG NOTE PSYCH ---
Social Work Progress Note Faxed Referral(s) Referred To: [facility] Transition of Care Documents sent: Health Summary Faxed to: [facility] Fax #: [phone] Faxed by: Kristel Mantilla Date faxed: 02/16/18 Time Faxed: [phone]
--- NOTE | 2018-02-16 13:25 | CP SOUTH PROGRESS NOTE PSYCH ---
Psych (Inpt) Progress Note Progress Note Include the following elements, when applicable: Involvement in the active treatment of the patient with behavioral observations of the patient and the patient's response to the treatment. Review of the ongoing treatment process in the context of the treatment plan. Indication of how multi-disciplinary staff members are carrying out the treatment plan. Plans for future interventions and recommendations for revision of the treatment plan. Liaison with other physicians/providers. Progress Note: Case and treatment plan discussed in team meeting. Staff reports that the patient is denying suicidal ideation. She was in bed most of the evening. Isolative. Said she is ready to go. Stated she wants to go home and move out. Patient seen at 9:52 AM with school social workerKristel, and with social work actuarial intern. Patient states she is okay today. Identifies foreclosure as a major problem. Plans to call the [employer] and "beg" for an extension. She reports she has accepted the fact that she has to move on. She is dressed in blue paper scrubs. Appears awake and alert. Affect is calm and blunted. Reports she is in a good mood. States she is a little scared but she is okay. States she is sad due to the situation. Rates overall sadness maybe a 3/10 and anxiety probably 4-5/10. Denies feeling hopeless, helpless or worthless. Does feel guilty. Denies active and passive suicidal ideation. Denies homicidal ideation. Denies auditory and visual hallucinations and paranoid ideation. Reports she slept well. Appetite is described as a good. Reports energy is okay, good. Tolerating medications well, without complaint. Reports feeling much better. Patient was advised to stay clean and sober. Patient is going to a [facility] IOP intake this morning. Feels ready and safe for discharge. IMPRESSION: Condition improved. Okay for discharge today to IOP intake then to home.
--- NOTE | 2018-02-16 13:31 | DISCHARGE SUMMARY REPORT-PSYCH ---
Visit Information Visit Dates/Diagnosis' Admission Date: 02/13/18 Discharge Date: 02/16/18 Reason for Admission: Expressed suicidal ideation in the context of foreclosure, cocaine use and alcohol use. Psy Discharge Primary Diag: Unspecified depression Psy Discharge Secondary Diag: Hx ADHD Alcohol use disorder Cocaine use disorder Hospital Course Significant Lab Findings: Lab ALT 23 U/L 02/12/18 1629 AST 35 U/L 02/12/18 1629 Anion Gap 17 H 02/12/18 1629 BUN 15 mg/dL 02/12/18 1629 Calcium 9.0 mg/dL 02/12/18 1629 Carbon Dioxide 25 mmol/L 02/12/18 1629 Chloride 106 mmol/L 02/12/18 1629 Cholesterol 188 MG/DL 02/12/18 1629 Cholesterol/HDL Ratio 3 % 02/12/18 1629 Creatinine 0.6 mg/dL 02/12/18 1629 Estimated GFR > 60 ml/min 02/12/18 1629 Free T4 1.62 ng/dL 02/12/18 1629 Glucose 104 mg/dL H 02/12/18 1629 HDL Cholesterol 62 mg/dL H 02/12/18 1629 Hemoglobin A1c 5.4 % 02/12/18 1629 LDL Cholesterol, Calc 109 mg/dL 02/12/18 1629 Potassium 3.7 mmol/L 02/12/18 1629 Sodium 148 mmol/L H 02/12/18 1629 TSH &T3 &Free T4 Intrp 0.089 uIU/mL L 02/12/18 1629 Total T3 0.91 ng/mL L 02/12/18 1629 Triglycerides 88 mg/dL 02/12/18 1629 Hct 42.2 % 02/12/18 1629 Hgb 14.1 G/DL 02/12/18 1629 MCH 31.3 PG H 02/12/18 1629 MPV 6.7 FL L 02/12/18 1629 Plt Count 337 /CUMM 02/12/18 1629 RBC 4.49 /CUMM 02/12/18 1629 WBC 7.3 /CUMM 02/12/18 1629 Serum Alcohol 333.0 MG/DL 02/12/18 1629 Urine Cocaine Screen > 1000 NG/ML H 02/12/18 1639 Urine Test NEGATIVE 02/15/18 0750 Course Complications: None. Consultations: The patient was seen for admission H&P by Dr. Willard Patel. Please refer to his note for additional information. Allergies: Coded Allergies: Penicillins (PER PT WAS TOLD A KID 03/12/16) Hospital Course/TX Response: The patient was monitored on the unit for safety, alcohol withdrawal and mood disturbance. She participated in multi-modal treatments on the unit. Ritalin substituted for Nuvigil (which is non-formulary here) for ADHD. Prozac dose was increased to 50 mg daily. Neurontin was continued. Mood and affect have improved. SI has remitted. Progress note from date of discharge, 02/16/18: Case and treatment plan discussed in team meeting. Staff reports that the patient is denying suicidal ideation. She was in bed most of the evening. Isolative. Said she is ready to go. Stated she wants to go home and move out. Patient seen at 9:52 AM with social media analystKristel, and with social work internet site designer. Patient states she is okay today. Identifies foreclosure as a major problem. Plans to call the [employer] and "beg" for an extension. She reports she has accepted the fact that she has to move on. She is dressed in blue paper scrubs. Appears awake and alert. Affect is calm and blunted. Reports she is in a good mood. States she is a little scared but she is okay. States she is sad due to the situation. Rates overall sadness maybe a 3/10 and anxiety probably 4-5/10. Denies feeling hopeless, helpless or worthless. Does feel guilty. Denies active and passive suicidal ideation. Denies homicidal ideation. Denies auditory and visual hallucinations and paranoid ideation. Reports she slept well. Appetite is described as a good. Reports energy is okay, good. Tolerating medications well, without complaint. Reports feeling much better. Patient was advised to stay clean and sober. Patient is going to a [facility] IOP intake this morning. Feels ready and safe for discharge. IMPRESSION: Condition improved. Okay for discharge today to IOP intake then to home. Discharge HBIPS - Tobacco Use Treatment Offered Post DC Medications Offered: Script Given-See Med List Post DC Tobacco Treatment Plan: [facility]x Pgm Program Appt Date: 03/01/18 Program Appt Time: 1600 - EtOH/Drug Use D/O Treatment Offered Post DC Medications Offered: Med Not Indicated for D/O Post DC EtOH/SubAbuse TX Plan: [facility] SubAbuse/Dual IOP Program Appt Date: 02/16/18 Program Appt Time: 1130 Metabolic Screening - Screen if on a Neuroleptic Medication - Metabolic screening should include: - Blood Pressure, BMI, Glucose or Hgb A1c, & a - Lipid profile from within the past 365 days. Metabolic Screening ([x]) Not Applicable, patient not on a neuroleptic. OR () Patient on a neuroleptic(s) . Enter below results for Hemoglobin A1C, and lipid panel if obtained during the last 365 days. BMI: 25.000 Blood Pressure: 104/60 Laboratory Results From [facility] EHR (If applicable): Discharge Instructions General Discharge Information Multiple Neuroleptics: ([x]) Not Applicable OR Document below three failed attempts at monotherapy, or a plan to taper to monotherapy, or augmentation of Clozapine. () Discharge Diet Regular Discharge Activity Normal DC Disposition: Returning to home. Referrals Ordered Referrals Provider Referral 03/01/18 For Groups: Outpatient Psychiatry [facility] Smoking Cessation Group 03/01/18 4pm [address] [place] [id number] Provider Referral 02/16/18 For Groups: [[facility] IOP] [facility] Intensive Outpatient Program for mental health and substance use Intake 02/16/18 11:30am [address] [place] [address] Prescriptions Stop taking the following medications: FLUOXETINE HCL (Fluoxetine Hydrochloride) 40 MG CAP ORAL DAILY Qty = 30 Oxycodone HCl (Oxycodone HCl) 5 MG TABLET ORAL 5 TIMES A DAY as needed for PAIN Trazodone HCl (Trazodone HCl) 100 MG TABLET ORAL Every night VALACYCLOVIR HCL (Valacyclovir) 1 GM TAB ORAL as needed for COLD SORES Qty = 27 Armodafinil (Nuvigil) 250 MG TABLET ORAL DAILY Tramadol HCl (Tramadol HCl) 50 MG TABLET ORAL EVERY SIX HOURS NEEDED as needed for PAIN Qty = 120 Lorazepam (Ativan) 0.5 MG TABLET ORAL TAPER Qty = 4 Gabapentin (Gabapentin) 300 MG CAPSULE ORAL THREE TIMES DAILY Days = 30 Continue taking these medications: Albuterol Sulfate (Proair Hfa) 0.09 MG/Actuation BERNADETTE 2 PUFF Inhale through mouth as needed for ASTHMA Comments: PER PT Lidocaine HCl (Lidoderm Patch) 5 % PAT 1 Patch On the skin as needed for PAIN Qty = 30 Instructions: may wear up to 12 hours Comments: PER PT Cyclobenzaprine HCl (Cyclobenzaprine HCl) 5 MG TABLET 1 Tablet ORAL THREE TIMES A DAY NEEDED Days = 30 Comments: NOT GIVEN IN HOSPITAL Start taking the following new medications: Gabapentin (Gabapentin) 300 MG CAPSULE 3 Capsule ORAL THREE TIMES DAILY Qty = 126 No Refills Comments: Last Taken:02/16/18 Time:8am Nicotine (Nicorelief) 2 MG GUM 1 Gum ORAL EVERY 2 HOURS NEEDED as needed for nicotine craving Qty = 100 No Refills Comments: Last Taken:02/15/18 Time:6pm Trazodone HCl (Trazodone HCl) 100 MG TABLET 2 Tablet ORAL AT BEDTIME Qty = 28 No Refills Comments: Last Taken:02/15/18 Time:10pm Fluoxetine HCl (Prozac) 40 MG CAPSULE 1 Capsule ORAL DAILY Qty = 14 No Refills Instructions: part of 50 mg total daily dose Comments: Last Taken:02/16/18 Time:9am Fluoxetine HCl (Prozac) 10 MG CAPSULE 1 Capsule ORAL DAILY Qty = 14 No Refills Instructions: part of 50 mg total daily dose Comments: Last Taken:02/16/18 Time:9am Methylphenidate HCl (Ritalin) 20 MG TABLET 1 Tablet ORAL DAILY Qty = 14 No Refills Comments: Last Taken:02/16/18 Time:9am The following medications have been changed: Old: Multivitamin (Once Daily) 1 EACH TABLET 1 Tablet ORAL DAILY Days = 30 New: Multivitamin (Once Daily) 1 EACH TABLET 1 Tablet ORAL DAILY Qty = 14 Comments: Last Taken:02/16/18 Time:9am Old: Buspirone HCl (Buspirone HCl) 15 MG TABLET 1 Tablet ORAL TWICE DAILY Days = 30 New: Buspirone HCl (Buspirone HCl) 15 MG TABLET 1 Tablet ORAL TWICE DAILY Qty = 28 Comments: Last Taken:02/16/18 Time:9am Other Inst/Recommendations Stay away from drugs and alcohol. Please see Dr. Patel re:low TSH. Studies Pending at Discharge None. Copies To: Intensive Outpt Psychiatry; Jorge BUCKLEY,Willard
== END 2018-02-16 11:32 | DRG 754 ==
LOC: ERH 16:10 → EDBEDREQ 02-13 18:26 → CP SOUTH 02-13 18:29 → ERHI 02-13 18:29 → CP SOUTH 02-13 21:22
PROVIDERS: Physician Assistant Medical
DX: F32.9 Major depressive disorder, single episode, unspecified (principal); F90.9 Attention-deficit hyperactivity disorder, unspecified type; Z72.89 Other problems related to lifestyle; F14.90 Cocaine use, unspecified, uncomplicated
CPT/HCPCS: 80307; 81025; 96372; G0480; J0515; J1200; J1630; J3490

== ENCOUNTER 2018-02-28 21:09 | Inpatient (IN) | payer OTHER ==
[~2018-02-28] VITALS: Ht 165.1 cm; Wt 67.1 kg
[~2018-02-28 21:09] MED LIST changes: +NICORELIEF2 MG PO; +PROZAC10 M1 PO; +PROZAC40 M1 PO; +RITALIN20 M1 PO
--- NOTE | 2018-02-28 22:02 | ED PSYCHIATRIC COMPLAINT ---
See Addendum History of Present Illness General Chief Complaint: Psychiatric Related Complaint Stated Complaint: +SI Source: patient Exam Limitations: no limitations Vital Signs & Intake/Output Vital Signs & Intake/Output Vital Signs Date Time Temp Pulse Resp B/P B/P Pulse O2 O2 Flow FiO2 Mean Ox Delivery Rate 03/01 1840 98.8 81 16 96/60 96 Room Air 03/01 1820 98.8 81 16 96/60 03/01 1453 98.4 81 16 123/74 03/01 1400 98.4 81 16 123/74 03/01 0654 95.0 78 18 121/72 95 Room Air 02/28 2214 98.3 99 16 116/59 95 Room Air 02/28 2131 Room Air ED Intake and Output 03/01 0000 02/28 1200 Intake Total Output Total Balance Patient 160 lb Weight Weight Reported by Patient Measurement Method Allergies Coded Allergies: Penicillins (PER PT WAS TOLD A KID 03/12/16) Reconcile Medications Albuterol Sulfate (Proair Hfa) 0.09 MG/Actuation BERNADETTE 2 PUFF INH PRN ASTHMA ( Reported) Buspirone HCl 15 MG TABLET 1 TAB PO BID anxiety Cyclobenzaprine HCl 5 MG TABLET 1 TAB PO TIDPRN MUSCLE SPASM Fluoxetine HCl (Prozac) 40 MG CAPSULE 1 CAP PO DAILY depression part of 50 mg total daily dose Fluoxetine HCl (Prozac) 10 MG CAPSULE 1 CAP PO DAILY depression part of 50 mg total daily dose Gabapentin 300 MG CAPSULE 3 CAP PO TID off-label for anxiety Lidocaine HCl (Lidoderm Patch) 5 % PAT 1 PAT TOP PRN PAIN (Reported) may wear up to 12 hours Methylphenidate HCl (Ritalin) 20 MG TABLET 1 TAB PO DAILY ADHD Multivitamin (Once Daily) 1 EACH TABLET 1 TAB PO DAILY vitamin supplement Nicotine (Nicorelief) 2 MG GUM 1 GUM PO Q2P PRN nicotine craving Trazodone HCl 100 MG TABLET 2 TAB PO AT BEDTIME insomnia Triage Note: PT BIBA S/P CALLING 911 TO STATE THAT SHE IS GOING TO KILL HERSELF.. PT STATES TO POLICE WHEN THEY ARRIVED TO HER HOME " I AM GLAD YOU ARE HERE IF YOU DID NOT COME I WAS GONNA OVERDOSE ON MY MEDS' PT IS TEARFUL AND STATES TO THIS RN I WANT TO , PLEASE HELP ME. Triage Nurses Notes Reviewed? yes HPI: Patient presents for evaluation of suicidal ideation. (Soni BUCKLEY,Andrés Chambers) Past History Travel History Traveled to [place] past 21 day No Medical History Any Pertinent Medical History? 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 No (Soni BUCKLEY,Andrés Chambers) Review of Systems Review of Systems Constitutional: Reports: no symptoms. EENTM: Reports: no symptoms. Respiratory: Reports: no symptoms. Cardiovascular: Reports: no symptoms. GI: Reports: no symptoms. Genitourinary: Reports: no symptoms. Musculoskeletal: Reports: no symptoms. Skin: Reports: no symptoms. Neurological/Psychological: Reports: no symptoms. Hematologic/Endocrine: Reports: no symptoms. Immunologic/Allergic: Reports: no symptoms. All Other Systems: Reviewed and Negative (Soni BUCKLEY,Andrés Chambers) Physical Exam Physical Exam General Appearance: see below Neurological/Psychiatric: see below Comments: General: Alert, calm, cooperative, EtOH-like odor Head: Normocephalic, atraumatic Eyes: Normal inspection, no nystagmus, EOMI Ears: Normal inspection Nose: Normal inspection Throat: Moist mucosa Neck: Supple, no goiter Heart: Regular rate and rhythm, no murmurs rubs or gallops Lungs: Clear to auscultation bilaterally with good air entry Abdomen: Soft nontender nondistended, normal bowel sounds Chest: Nontender Extremities: Normal range of motion grossly, no tremors present, no cyanosis clubbing or edema of the upper extremities Neurologic: cranial nerves II through XII grossly intact, speech clear, gait normal Psychiatric: No apparent delusions or hallucinations, no pressured speech or thought blocking SAD PERSONS Done? deferred to crisis (Andrés Shafer MD) Progress Differential Diagnosis: alcohol intoxication, drug intoxication, heat exhaustion , dehydration Plan of Care: Orders Procedure Date/time Status Regular Diet 03/01 B Active URINE DRUG SCREEN FOR ER ONLY 03/01 151 Complete Continuous Observation Monitor 03/01 1457 Active Restraint- Discontinue 03/01 0140 Active Restraint- Behavioral (Order) 02/28 2259 Active Continuous Observation Monitor 02/28 2159 Active ETHANOL 02/28 2159 Complete CBC WITHOUT DIFFERENTIAL 02/28 2159 Complete BASIC METABOLIC PANEL 02/28 2159 Complete ED CRISIS PSYCH CONSULT 02/28 2159 Active Laboratory Tests 03/01/181516: Urine Opiates Screen 131, Methadone Screen 62, Barbiturate Screen < 60, Ur Phencyclidine Scrn < 6.00, Amphetamines Screen < 100, U Benzodiazepines Scrn < 85, Urine Cocaine Screen > 1000 H, Urine Cannabis Screen < 5.00 02/28/182208: Anion Gap 15, Estimated GFR > 60, BUN/Creatinine Ratio 15.7, Glucose 126 H, Calcium 8.9, CBC w Diff NO MAN DIFF REQ, RBC 4.14 L, MCV 94.8, MCH 32.2 H, MCHC 34.0, RDW 13.4, MPV 6.9 L, Gran % 59.3, Lymphocytes % 28.7, Monocytes % 9.0, Eosinophils % 2.4, Basophils % 0.6, Absolute Granulocytes 4.5, Absolute Lymphocytes 2.2, Absolute Monocytes 0.7 H, Absolute Eosinophils 0.2, Absolute Basophils 0, Serum Alcohol 229.0 02/28/182158: Methadone Screen Cancelled, Barbiturate Screen Cancelled, Ur Phencyclidine Scrn Cancelled, Amphetamines Screen Cancelled, U Benzodiazepines Scrn Cancelled, Urine Cocaine Screen Cancelled, Urine Cannabis Screen Cancelled Comments: 02/28/2018 10:57:20 PM unfortunately the patient began to escalate and was unresponsive to verbal intervention. She began threatening the ED staff both verbally and physically. She became increasingly profane and allowed. She required for locked leather restraints and the administration of chemical sedation as well. 02/28/2018 11:01:39 PM patient signed out to Dr. Diane at shift loom changeover operator. (Soni BUCKLEY,Andrés Chambers) Hand-Off Endorsed To: Mohinder Ochoa MD Endorsed Time: 1921 Pending: CT (CI eval) Comments: Dr. Soto addendum at 1921 hrs.: Care assumed from Dr. Diane this morning at 7 AM. No acute events today, patient still awaiting definitive crisis evaluation and bed search. Care transitioned to Dr. Ochoa at shift change. (Xu Soto DO) Departure Departure Disposition: HOME OR SELF CARE Condition: Stable Clinical Impression Primary Impression: Suicide ideation Referrals: Willard Patel MD (PCP/Family) Departure Forms: Customer Survey General Discharge Information (Soni BUCKLEY,Andrés Chambers) Departure Comments 03/01/18, 7am.... pt signed out to dr. soto (Roxi BUCKLEY,Nick Whitlock)
[2018-02-28 22:29] LABS: ABSOLUTE BASOPHIL COUNT 0 /CUMM (0.0-0.2); ABSOLUTE EOSINOPHIL COUNT 0.2 /CUMM (0.0-0.7); ABSOLUTE GRANULOCYTE CT 4.5 /CUMM (1.4-6.5); ABSOLUTE LYMPH COUNT 2.2 /CUMM (1.2-3.4); ABSOLUTE MONOCYTE COUNT 0.7 /CUMM (0.10-0.60); BASOPHIL % 0.6 % (0.0-2.0); EOSINOPHIL % 2.4 % (0-5); GRANULOCYTE % 59.3 % (42.2-75.2); HEMATOCRIT 39.2 % (37-47); MEAN CORPUSCULAR HGB 32.2 PG (27.0-31.0); MEAN CORPUSCULAR VOLUME 94.8 FL (81.0-99.0); MEAN PLATELET VOLUME 6.9 FL (7.4-10.4); PLATELET COUNT 344 /CUMM (130-400); RBC DISTRIBUTION WIDTH 13.4 % (11.5-14.5); RED BLOOD CELL CT 4.14 /CUMM (4.20-5.40); WHITE BLOOD CELL COUNT 7.5 /CUMM (4.8-10.8)
[2018-03-01 14:00] VITALS: BP 123/74
[2018-03-01 18:20] VITALS: BP 96/60
--- NOTE | 2018-03-01 18:34 | ED PSYCH CRISIS CONSULTATION ---
See Addendum Crisis Consult Basic Assessment Date of Consult: 03/01/18 Responsible Person/Accompanied By: ISREAL on PEER Insurance Authorization: Insurance #1: Insurance name: SUSIE MARION Phone number: Policy number: [id number] Group number: Authorization number: ED Provider: Patient's ED Provider: Xu Moseley DO Primary Care Physician: Patient's PCP: Willard Patel MD PCP's Current Psychiatrist: DELL Chief Complaint: Psychiatric Related Complaint Patient's Quote: "I felt the same way." Present Illness: The patient is a 47 year old, single female presenting to the ED on a PEER, after making suicidal statements. She was recently admitted to [facility] and was discharged on February 16, to follow up with an intake at [facility], which she attended. She reports that she did not continue to attend [facility], as it was a conflict with her mandated [facility] relapse prevention classes. 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 She reports that she was clean and sober for 3 days after being discharged, prior to relapsing on Crack Cocaine and alcohol. She reports that she has been drinking everyday (1 pint), for the last 10 days and using Crack Cocaine 7 or 8 times. She states that she continues to feel depressed and rates her depression and anxiety both a 9 out of 10, 10 being the most severe. She reports feeling helpless,hopeless, useless and worthless. She does not remember making suicidal or homicidal statements last night, however states, " I don't care if I ." She reports that she has had poor concentration, decreased motivation and energy, with a decrease in sleep. She initially stated that she did not want to go inpatient and then said that she would sign in voluntarily. SW spoke to her friend, Alvaro Rios ([phone]), who reports that he is very concerned about the safety of the patient. He states that he went to check on her today and "he thought that he would find her ." He states that she has been depressed, anxious and suicidal. The C-SSRS was completed and place in the patients chart. Patient's Address: [address] [place] [address] Other Phone Number: Who Do You Live With? Patient/Self Family/Informants Interviewed: Friend- Alvaro Rios- [phone] Allergies - Coded Allergies: Penicillins (PER PT WAS TOLD A KID 03/12/16) Current Medications - Scheduled Medications Buspirone HCl 15 MG TABLET 1 TAB PO BID anxiety #28 TAB Prescribed by Nick Klukarni MD on 02/16/18 Cyclobenzaprine HCl 5 MG TABLET 1 TAB PO TIDPRN MUSCLE SPASM 30 Days Prescribed by Ryan Rodriguez on 03/23/16 Fluoxetine HCl (Prozac) 40 MG CAPSULE 1 CAP PO DAILY depression #14 CAP Prescribed by Nick Kulkarni MD on 02/16/18 Fluoxetine HCl (Prozac) 10 MG CAPSULE 1 CAP PO DAILY depression #14 CAP Prescribed by Nick Kulkarni MD on 02/16/18 Gabapentin 300 MG CAPSULE 3 CAP PO TID off-label for anxiety #126 CAP Prescribed by Nick Kulkarni MD on 02/16/18 Methylphenidate HCl (Ritalin) 20 MG TABLET 1 TAB PO DAILY ADHD #14 TAB Prescribed by Nick Kulkarni MD on 02/16/18 Multivitamin (Once Daily) 1 EACH TABLET 1 TAB PO DAILY vitamin supplement #14 TAB Prescribed by Nick Kulkarni MD on 02/16/18 Trazodone HCl 100 MG TABLET 2 TAB PO AT BEDTIME insomnia #28 TAB Prescribed by Nick Kulkarni MD on 02/16/18 Scheduled PRN Medications Albuterol Sulfate (Proair Hfa) 0.09 MG/Actuation BERNADETTE 2 PUFF INH PRN ASTHMA ( Reported) Entered as Reported by Kathy Emery on 08/08/15 1630 Lidocaine HCl (Lidoderm Patch) 5 % PAT 1 PAT TOP PRN PAIN #30 (Reported) Entered as Reported by Kathy Emery on 08/08/15 1632 Nicotine (Nicorelief) 2 MG GUM 1 GUM PO Q2P PRN nicotine craving #100 GUM Prescribed by Nick Kulkarni MD on 02/16/18 Laboratory Results: Laboratory Tests 03/01/18 1517: Urine Opiates Screen 131, Methadone Screen 62, Barbiturate Screen < 60, Ur Phencyclidine Scrn < 6.00, Amphetamines Screen < 100, U Benzodiazepines Scrn < 85, Urine Cocaine Screen > 1000 H, Urine Cannabis Screen < 5.00 02/28/189: Anion Gap 15, Estimated GFR > 60, BUN/Creatinine Ratio 15.7, Glucose 126 H, Calcium 8.9, CBC w Diff NO MAN DIFF REQ, RBC 4.14 L, MCV 94.8, MCH 32.2 H, MCHC 34.0, RDW 13.4, MPV 6.9 L, Gran % 59.3, Lymphocytes % 28.7, Monocytes % 9.0, Eosinophils % 2.4, Basophils % 0.6, Absolute Granulocytes 4.5, Absolute Lymphocytes 2.2, Absolute Monocytes 0.7 H, Absolute Eosinophils 0.2, Absolute Basophils 0, Serum Alcohol 229.0 02/28/182158: Methadone Screen Cancelled, Barbiturate Screen Cancelled, Ur Phencyclidine Scrn Cancelled, Amphetamines Screen Cancelled, U Benzodiazepines Scrn Cancelled, Urine Cocaine Screen Cancelled, Urine Cannabis Screen Cancelled Past History Past Medical History Neurological: NONE EENT: NONE Cardiovascular: NONE Respiratory: NONE Gastrointestinal: NONE Hepatic: NONE Renal: NONE Musculoskeletal: degen joint disease Psychiatric: alcohol dependence, depression, substance abuse, ADHD Endocrine: NONE Blood Disorders: NONE Cancer(s): NONE 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 She states that she knows the tools and supports to use, she just has to use them. Physical Limitations (Interventions): By history- Chronic back pain s/t degenerative disc disease Psychiatric Treatment History Psych Treatment Psychiatric Treatment Yes Inpatient Treatment Yes Outpatient Treatment Yes Location of Treatment [facility] and [facility] Reason for Treatment Depression, substance abuse and suicidal ideations. Dates of Treatment Last IP on [facility] February 13-2017, attended intake at [facility] 02/16/18 Response to Treatment She attended the intake at [facility] and was scheduld to start on 02/22/2018, however states that she did not attend, because she was going to mandated treatment at [facility]. Diagnosis by History: Major Depression, Alcohol Abuse, Opiate Abuse Substance Use/Abuse History Drug Use/Abuse 1 Substances Used/Abused Yes Substance Used/Abused Alcohol First Use Unknown Last Used Yesterday; 02/28/2018 How much used/taken 1 pint How often Daily for the last 10 days. She states she relapsed 3 days after discharge For how long The last 10 days Route of use oral Drug Use/Abuse 2 Substances Used/Abused Yes Substance Used/Abused Crack Cocaine First Use Unknown Last Used "This past Tuesday." 02/25/2018. How much used/taken Unclear How often She reports using about 7 or 8 times, since being discahrged 2017 For how long Since being discharged from [facility] 02/16/2018. Route of use Inhalation Substance Abuse Treatment Substance Abuse Treatment Past Substance Abuse TX Yes Inpatient Treatment Yes Outpatient Treatment Yes Location of Treatment [facility], [facility], [facility], [facility] Reason for Treatment Abuse of multiple substances Dates of Treatment She states current with mandated relapse prevention at [facility]. Response to Treatment She has not been able to maintain sobriety, despite multiple treatment epsiodes. Comments: N/A Current Mental Status Mental Status Orientation: Person, Place, Situation Affect: Anxious, Depressed Speech: WNL Neuro-vegetative: Concentration Poor, Energy Decreased, Sleep Disturbance, Decreased motivation. Appearance Appearance- Dress/Hygiene: The patient was sitting in the chair, disheveled and unkempt. Behaviors Thought Process: WNL Thought Content: WNL Memory: WNL Insight: Fair SI/HI Risk Assessment Past Suicidal Ideation/Attempts Yes Current Suicidal Ideation/Att Yes Past Homicidal Ideation/Att: No Current Homicidal Ideation/Attempts No Degree of Intent: She presented to the ED after calling 911 and making suicidal statements. She made suicidal and homicidal statements while intoxicated last night in the ED. She threatened to kill herself and hospital staff. She denies any history of suicide attempts. Danger To: Others, Self Gravely Disabled: Poor Impulse Control Risk Factors: high anxiety/distress, SA/MH hospitalized, substance abuse, poor impulse control Lethality Ratin PTSD Checklist PTSD Done? patient declined (Denies symptoms of PTSD) ED Management Sitter: Yes Restraints: Yes (Last evening) DSM5/PS Stressors/Medical Prob Diagnosis' (DSM 5, Stressors, Medical): F32.9 Unspecified Depressive Disorder F10.20 Alcohol Use Disorder F14.20 Stimulant Use Disorder, Cocaine type Medical: Degenerative Joint Disease by history Stressors:Housing (pending foreclosure) and finances. Current GAF: 28 Comments: N/A Departure Disposition Psych Medical Clearance Date: 03/01/18 Medically Cleared at: 1700 Time Started: 1715 Time Ended: 1800 Psychiatrist Consulted: Nick Kulkarni MD Date Disposition Established: 03/01/18 Time Disposition Established: 1800 Plan for Disposition - Modality: Bed Search (Vs. CPS) Facility: CPS vs. bed search Rationale for Disposition: The patient presents on a PEER, after making suicidal statments. She continued to make suicidal and homicidal statements, while in the ED. She was recently on CPS and did not follow through with the discharge plan. She presents with worsening depression, anxiety and continues to endorse suicidal ideations. She has not been able to stop using alcohol or Crack Cocaine. Case discussed with Dr. Kulkarni and the patient will be held over in the ED, for an admission to CPS vs a bed search. Type of IP Admission: Voluntary Additional Instructions: N/A Referrals Willard Patel MD (PCP/Family)
[2018-03-01 20:20] VITALS: BP 119/78
[2018-03-01 22:20] VITALS: BP 123/88
[2018-03-02] VITALS (8 sets, daily range): BP systolic 106–123; BP diastolic 58–77
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
[2018-03-03 07:44] VITALS: BP 108/65
[2018-03-03 12:22] VITALS: BP 102/56
[2018-03-03 12:30] VITALS: BP 102/56
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
[2018-03-03 15:38] VITALS: BP 120/57
[2018-03-03 15:47] VITALS: BP 120/57
--- NOTE | 2018-03-03 17:38 | CPS PROVIDER INIT ASMT PSYCH ---
Psychiatric Admission Channel Sales Manager's Note Reviewed: Yes Patient Seen and Examined: Yes Identifying Information: 47 yo DWF admitted on 03/02/18, referred by ER. Known to me from her recent [facility] admission. Chief Complaint: SI. Relapsed with alcohol and cocaine 3 days after last discharge. Reaction to Hospitalization: "Fine with being here." History of Present Illness Onset of Illness: Probably 3 days after last discharge. Passive SI x couple of days. Circumstances Leading to Admission: As above. House in [facility], facing eviction. Woman living in the home was drinking and patient relapsed. Didn't not go to [facility] because she claims that the state would not pay for her mandated program and for [facility]. Problem(s) Justifying Need for Admission: SI. Substance use. Other HPI: Case and treatment plan discussed in team meeting. Staff reports that the patient is looking for Ritalin. Denying SI. Past Psychiatric History Past Diagnosis(es)- if any: Unspecified depression. Hx ADHD. Alcohol use d/o. Cocaine use d/o. Past Precipitating Factors- if any: Expressed SI in the context of foreclosure, cocaine and alcohol use. - Include inpatient and outpatient treatment Treatment History: [facility] 02/13-. This is 3rd [facility] admit. Did not follow up at [facility]. [facility] (completed). Hx rehabs (please see previous admission assessment). History of Suicide Attempts or Gestures Denied. Substance Abuse History: Tobacco: 0.5 ppd. Alcohol: 1 pint vodka/day. MJ: none. Cocaine $40 smoked <1x/day. Denies other drugs. Allergies: Coded Allergies: Penicillins (PER PT WAS TOLD A KID 03/12/16) Home Med List: Albuterol prn Lidocaine patch daily Cyclobenzaprine 5 mg tid prn Neurontin 300 mg t.i.d. Nicorette p.r.n. Trazodone 200 mg qhs Prozac 50 mg daily Ritalin 20 mg dailiy MVI 1 dialy Buspar 15 mg b.i.d. - Include any medical condition(s) that may - impact the patient's recovery/remission Past Medical History: Asthma. Back and neck issues from DJD. R carpal tunnel repair. Has L carpal tunnel. Arthritis. Past History Medical History Neurological: NONE EENT: NONE Cardiovascular: NONE Respiratory: NONE Gastrointestinal: NONE Hepatic: NONE Renal: NONE Musculoskeletal: degen joint disease Psychiatric: alcohol dependence, depression, substance abuse, ADHD Endocrine: NONE Blood Disorders: NONE Cancer(s): NONE RETAIL WAREHOUSE ASSOCIATE/Reproductive: NONE History of MRSA: No History of VRE: No History of CDIFF: No Isolation History: Standard Surgical History Surgical History: R carpal tunnel. Psychiatric Family/Social Hx Family History Psychiatric Illness: Denied. Substance Use: Father alcoholic. Suicides: Denied. Social History Living Situation: Living with a friend. Significant Relationships (family/friends): Luis. Has sister and father. Education: Some college. 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 Legal: Hx multiple arrests, including assault 2 years ago. Off probation tomorrow. Healthly Behaviors Screening Tobacco Screening Tobacco Use from ED Docu: Current Daily Use Daily Tobacco Use Amount/Type: => 5 Cigarettes daily - If tobacco counseling indicated - the following topics are required. - #1 Recognizing dangerous situations. - #2 Coping Skills. - #3 Basic information about quitting. Status of Tobacco Cessation Counseling: #1, #2 AND #3 Completed Cessation Med Status Nicotine Gum Ordered Alcohol Screening - ETOH screen POS if BAL >=80 or Audit-C>= M4/F3 Audit-C Score from Diag Assess: 12 Blood Alcohol Level: Laboratory Tests 02/28 2209 Toxicology Serum Alcohol (<10 MG/DL) 229.0 Alcohol Use Screening Results: Pos per Audit C &/or BAL - If ETOH counseling indicated - the following topics are required. - #1 Express concern about the patient's - drinking at unhealthy levels, include informing - of national norms for moderate drinking: - men <= 14 drinks/week, max 4 drinks/occasion - women <= 7 drinks/week, max 3 drinks/occasion - #2 Providing feedback, including linking alcohol to - negative physical effects (liver injury, hypertension) - negative emotional effects (relationship problems and - depression) - negative occupational consequences (reduced work - performance) - #3 Advising the patient to abstain from alcohol or - to drink below national norms for moderate drinking - (as listed above). Status of ETOH Use Counseling: #1, #2 AND #3 Completed. Metabolic Screening - Screen if on a Neuroleptic Medication - Metabolic screening should include: - Blood Pressure, BMI, Glucose or Hgb A1c, & a - Lipid profile from within the past 365 days. Metabolic Screening ([x]) Not Applicable, patient not on a neuroleptic. OR () Patient on a neuroleptic(s) . Enter below results for Hemoglobin A1C, and lipid panel if obtained during the last 365 days. BMI: 24.600 Blood Pressure: 120/57 Laboratory Results From [facility] (If applicable): Exam and Plan Mental Status Examination Ambulation Status: Gait is normal. Appearance: Casually dressed WF in NAD. Attitude towards examiner: Calm, polite and cooperative. Psychomotor activity: There is no psychomotor agitation or retardation. Behavior: Unremarkable. Quality of speech: Normal in volume, rate and tone. Affect: Calm and blunted. Mood: Complains of scattered thinking off of Ritalin. Claims she can't focus. Reports she had wanted to for a couple of days because she hates her life and she hates herself. Feeling better now. Mood is good now. Sad ~4/10. Anxiety 7/10. Denies feeling hopeless. Feels helpless, worthless and guilty. Suicidal Ideation: Denied active SI. Has passive SI. Gives a safety promise for here. Homicidal Ideation: Denies HI. Hallucinations: Denies AH and VH. Paranoid/Delusional Material: Denies PI and magical montero. Difficulties with thought organization: None evident. Insight: Limited. Judgment: Poor. Orientation: Ox3. Cognition: Grossly intact. Memory Function: Grossly intact. Estimate of intellectual functioning: Average. Assets/Strengths Patient Identified Assets/Strengths: "I don't know." Impression/Plan Impression and Plan: The patient is here with recent SI in the context of relapse with alcohol+ cocaine and house being in [facility]. - Include all active medical diagnosis that require tx DSM 5 Diagnosis(es): Unspecified depression. Hx ADHD. Alcohol use disorder. Cocaine use disorder. - Initial Tx Plan for Active Psych & Medical Conditions Treatment Plan: The patient will be monitored on the unit for safety, alcohol withdrawal and mood disorder. Home medications have been ordered, except for Ritalin, which has been stopped, given substance abuse hx. Major risks/benefits of Strattera were d/w patient and she agrees to this medication for ADHD. Will start 40 mg daily. Patient was advised to avoid drugs, alcohol and while on this medication. Additional information is needed from collateral (Luis). Anticipate once clinically stable, that the patient will return to the community and be referred to [facility]. She would like a 28 or 30 day rehab. - Factors that would help patient function - in a less restrictive setting. Factors: Not suicidal.
--- NOTE | 2018-03-03 18:14 | SOCIAL WORKER PROG NOTE PSYCH ---
Social Work Progress Note Progress Note This flex o writer operator met with patient. She identified her drug of choice as alcohol and crack and stated that she becomes "very suicidal" when she drinks. She reported a past suicide attempt/overdose on 37 pills of Trazadone. Patient plans to return to AA/NA upon discharge from the hospital and would like to attend IOP at [facility]. She stated that she is only intrested in inpatient/rehab if she can attend a 30 day program, however, believes that her insurance will only pay for 90 days due to her frequent relapses. She denied SI/HI/AH/VH. She would like to have a family meeting with her friend, Luis Rios and will speak with him about this this weekend. Patient identified her trigger for most recent relapse as being around alcohol and crack.
[2018-03-03 19:42] VITALS: BP 128/72
--- NOTE | 2018-03-03 20:13 | History & Physical ---
General Information and HPI MD Statement: I have seen and personally examined TAIF THOMAS and documented this H&P. The patient is a 47 year old F who presented with a patient stated chief complaint of "I felt the same way". Source of Information: patient, old records, friend Exam Limitations: unable to give history History of Present Illness: 47-year-old female brought in by ambulance after calling 911 stated that she was going to kill herself she presented to the emergency room on a PEE R paper after making suicidal statements and recently she was in [facility]. She was discharged 02/16/2018. At first she followed with outpatient department, later on she had some excuse not to come and she stated she was clean and sober for 3 days after the discharge then she relapsed some crack cocaine and alcohol. She states she continues to be depressed and anxious and her friend didn't think she was safe at home. For all those reasons patient is readmitted. Allergies/Medications Allergies: Coded Allergies: Penicillins (PER PT WAS TOLD A KID 03/12/16) Home Med list Albuterol Sulfate (Proair Hfa) 0.09 MG/Actuation BERNADETTE 2 PUFF INH PRN ASTHMA ( Reported) Buspirone HCl 15 MG TABLET 1 TAB PO BID anxiety Cyclobenzaprine HCl 5 MG TABLET 1 TAB PO TIDPRN MUSCLE SPASM Fluoxetine HCl (Prozac) 40 MG CAPSULE 1 CAP PO DAILY depression part of 50 mg total daily dose Fluoxetine HCl (Prozac) 10 MG CAPSULE 1 CAP PO DAILY depression part of 50 mg total daily dose Gabapentin 300 MG CAPSULE 3 CAP PO TID off-label for anxiety Lidocaine HCl (Lidoderm Patch) 5 % PAT 1 PAT TOP PRN PAIN (Reported) may wear up to 12 hours Methylphenidate HCl (Ritalin) 20 MG TABLET 1 TAB PO DAILY ADHD Multivitamin (Once Daily) 1 EACH TABLET 1 TAB PO DAILY vitamin supplement Nicotine (Nicorelief) 2 MG GUM 1 GUM PO Q2P PRN nicotine craving Trazodone HCl 100 MG TABLET 2 TAB PO AT BEDTIME insomnia Compliance With Home Meds: UNKNOWN Past History Travel History Traveled to [place] past 21 day No Medical History Neurological: NONE EENT: NONE Cardiovascular: NONE Respiratory: NONE Gastrointestinal: NONE Hepatic: NONE Renal: NONE Musculoskeletal: degen joint disease Psychiatric: alcohol dependence, depression, substance abuse, ADHD Endocrine: NONE Blood Disorders: NONE Cancer(s): NONE PHOTORESIST PRINTER/Reproductive: NONE History of MRSA: No History of VRE: No History of CDIFF: No Isolation History: Standard Surgical History Surgical History: NECK SURGERY, TONSILLECTOMY, CARPAL TUNNEL Past Family/Social History Family History Relations & Conditions if any MOTHER Brain cancer Relation not specified for: *No pertinent family history Colon cancer in mother Hypertension in father Psychosocial History Who Do You Live With? self Services at Home: None Primary Language: Malay ETOH Use: alcoholic Illicit Drug Use: denies illicit drug use Functional Ability ADLs Independent: dressing, eating, toileting, bathing. Ambulation: independent IADLs Independent: shopping, housework, finances, food prep, telephone, transportation , medication admin. Employment History Employment Unemployed Review of Systems Review of Systems Constitutional: Reports: see HPI. Exam & Diagnostic Data Last 24 Hrs of Vital Signs/I&O Vital Signs Date Time Temp Pulse Resp B/P B/P Pulse O2 O2 Flow FiO2 Mean Ox Delivery Rate 03/03 1942 96.6 88 128/72 03/03 1547 83 120/57 03/03 1538 83 120/57 03/03 1230 81 102/56 03/03 1222 81 102/56 03/03 0744 96.9 86 108/65 06 0744 96.9 86 108/65 Intake & Output 03/03 1600 03/03 0800 03/03 0000 Intake Total Output Total Balance Patient 148 lb Weight Physical Exam General Appearance Alert, Oriented X3, Cooperative, No Acute Distress Skin No Rashes, No Breakdown HEENT PERRLA, EOMI, Mucous Membr. moist/pink Neck Supple, No JVD, No thryomegaly, +2 Carotid Pulse wo Bruit, No LAD Lymphatic Axillary nl, Cervical nl Cardiovascular Regular Rate, No Murmurs Lungs Clear to Auscultation, Normal Air Movement Abdomen Normal Bowel Sounds, Soft, No Tenderness, No Hepatospenomegaly, No Masses Neurological Exam Findings: Normal Gait, Normal Speech, Strength at 5/5 X4 Ext, Normal Tone, Sensation Intact, Cranial Nerves 3-12 NL, Reflexes 2+ Cranial Nerves II through XII: Intact Extremities No Edema, Normal Pulses Vascular Normal Pulses, Pulses Symmetrical Last 24 Hrs of Labs/Ollie: Laboratory Tests 03/03/18 0545: Assessment/Plan As Ranked By This Provider Problem List: 1. Alcohol dependence 2. Suicidal ideation 3. Opiate abuse, continuous 4. Depression Miscellaneous Miscellaneous Documentation Attending Case Discussed With: Nick Kulkarni MD Primary Care Physician: Willard Patel MD Patient sees these Specialists Psychiatry Level of Patient Care: OTILIO Roy Consults Needed: Consulting Specialty: Psychiatry Consulting Physician: Dr. Kulkarni Reason for Consult: suicidal ideation and depression anxiety: Cocaine use
[2018-03-04] VITALS (8 sets, daily range): BP systolic 100–125; BP diastolic 58–70
--- NOTE | 2018-03-04 10:48 | CP SOUTH PROGRESS NOTE PSYCH ---
Psych (Inpt) Progress Note Progress Note Include the following elements, when applicable: Involvement in the active treatment of the patient with behavioral observations of the patient and the patient's response to the treatment. Review of the ongoing treatment process in the context of the treatment plan. Indication of how multi-disciplinary staff members are carrying out the treatment plan. Plans for future interventions and recommendations for revision of the treatment plan. Liaison with other physicians/providers. Progress Note: Pt notes that she is feeling better since got strattera. Wants higher dose. Defered for primary team. SHe notes that poor sleep overnight. Denies SI or HI. SUpportive friend is visiting today after visit yesterday. Thinks now has 9K thoughts in head instead ot 15K, target is baseline of 2K thoughts. Current Medications Sig/Bailee Start time Last Medication Dose Route Stop Time Status Admin Acetaminophen 650 MG Q6P PRN 03/02 1330 AC PO Al Hydroxide/Mg 30 ML Q4-6 PRN PRN 03/02 1330 AC Hydroxide PO Albuterol Sulfate 2 PUF Q6P PRN 03/02 1315 AC INH Benztropine Mesylate 1 MG Q6P PRN 03/02 1330 AC PO Benztropine Mesylate 1 MG Q6P PRN 03/02 1330 AC IM Buspirone HCl 15 MG BID 03/01 2100 AC 03/04 PO 0751 Cyclobenzaprine HCl 5 MG Q8P PRN 03/02 1315 AC PO Fluoxetine HCl 40 MG DAILY 03/02 0900 AC 03/04 PO 0752 Fluoxetine HCl 10 MG DAILY 03/02 0900 AC 03/04 PO 0752 Folic Acid 1 MG DAILY 03/02 1322 DC / PO 03/04 0901 0751 Gabapentin 300 MG Q8P PRN 03/02 1330 AC PO Gabapentin 900 MG TID 03/01 2100 AC 03/04 PO 0752 Haloperidol 5 MG Q6P PRN 03/02 1330 AC PO Haloperidol 5 MG Q6P PRN 03/02 1330 AC IM Lidocaine 1 PAT DAILY NEEDED PRN 03/02 1315 AC TOP Lorazepam 2 MG Q6P PRN 03/02 1330 AC IM Lorazepam 2 MG Q2P PRN 03/02 1330 AC PO Lorazepam 1 MG Q2P PRN 03/02 1330 AC PO Magnesium Hydroxide 30 ML AT BEDTIME PRN 03/02 1330 AC PO Melatonin 3 MG AT BEDTIME 03/04 2100 UNVr PO Multivitamins 1 TAB DAILY 03/02 1312 AC 03/04 PO 0752 Nicotine 2 MG Q2P PRN 03/02 1315 AC 03/04 PO 0935 Thiamine HCl 100 MG DAILY 03/02 1322 DC 03/04 PO 03/04 0901 0752 Trazodone HCl 250 MG AT BEDTIME 03/04 2100 UNVr PO Trazodone HCl 200 MG AT BEDTIME 03/01 2100 DC 03/03 PO 2128 Laboratory Tests 03/03 03/01 03/01 0545 1517 1512 Chemistry Potassium (3.5 - 5.1 mmol/L) 4.7 Toxicology Urine Opiates Screen (>2000 NG/ML) 131 Methadone Screen (>300 NG/ML) 62 Barbiturate Screen (>200 NG/ML) < 60 Ur Phencyclidine Scrn (>25 NG/ML) < 6.00 Amphetamines Screen (>1000 NG/ML) < 100 U Benzodiazepines Scrn (>200 NG/ML) < 85 Urine Cocaine Screen (>300 NG/ML) > 1000 H Urine Cannabis Screen (>50 NG/ML) < 5.00 Urines Urine Test NEGATIVE Vital Signs Date Time Temp Pulse Resp B/P B/P Pulse O2 O2 Flow FiO2 Mean Ox Delivery Rate 03/04 0857 97.3 95 100/59 03/04 0751 97.3 92 100/59 03/03 1942 96.6 88 128/72 03/03 1547 83 120/57 03/03 1538 83 120/57 03/03 1230 81 102/56 03/03 1222 81 102/56 MSE General appearance: good hygiene and grooming; Attitude: cooperative; Eye contact: appropriate; Movement: no psychomotor agitation or slowing; Speech: nl fluency, nl rate/rhythm, nl volume, nl prosody; Mood: "pretty good" Affect: very irritable, flat, appropriate, constricted, non-labile, congruent; Thought process: linear and goal-directed; Thought content: denied SI or HI, no paranoid ideation; Perception: denied hallucinations- auditory, visual, does not appear to be responding to internal stimuli; I/J: limited A/P: Pt with hx of unpsecified mood disoder and PSD now with improved mood. Sleep remains as issue. -Continue current medication regimen except start melatonin 3mg and increase trazodone to 250mg -Encourage integration into the milieu
[2018-03-05] VITALS (8 sets, daily range): BP systolic 101–111; BP diastolic 64–71
--- NOTE | 2018-03-05 12:04 | CP SOUTH PROGRESS NOTE PSYCH ---
Psych (Inpt) Progress Note Progress Note Include the following elements, when applicable: Involvement in the active treatment of the patient with behavioral observations of the patient and the patient's response to the treatment. Review of the ongoing treatment process in the context of the treatment plan. Indication of how multi-disciplinary staff members are carrying out the treatment plan. Plans for future interventions and recommendations for revision of the treatment plan. Liaison with other physicians/providers. Progress Note: Pt notes sleep improved, but "not great." Visited by best friend feels that he is very supportive. Denies SI or HI Current Medications Sig/Bailee Start time Last Medication Dose Route Stop Time Status Admin Acetaminophen 650 MG Q6P PRN 03/02 1330 AC PO Al Hydroxide/Mg 30 ML Q4-6 PRN PRN 03/02 1330 AC Hydroxide PO Albuterol Sulfate 2 PUF Q6P PRN 03/02 1315 AC INH Benztropine Mesylate 1 MG Q6P PRN 03/02 1330 AC PO Benztropine Mesylate 1 MG Q6P PRN 03/02 1330 AC IM Buspirone HCl 15 MG BID 03/01 2100 AC 03/05 PO 0743 Cyclobenzaprine HCl 5 MG Q8P PRN 03/02 1315 AC PO Fluoxetine HCl 40 MG DAILY 03/02 0900 AC 03/05 PO 0743 Fluoxetine HCl 10 MG DAILY 03/02 0900 AC 03/05 PO 0743 Gabapentin 300 MG Q8P PRN 03/02 1330 AC PO Gabapentin 900 MG TID 03/01 2100 AC 03/05 PO 0744 Haloperidol 5 MG Q6P PRN 03/02 1330 AC PO Haloperidol 5 MG Q6P PRN 03/02 1330 AC IM Lidocaine 1 PAT DAILY NEEDED PRN 03/02 1315 AC TOP Lorazepam 2 MG Q6P PRN 03/02 1330 AC IM Lorazepam 2 MG Q2P PRN 03/02 1330 AC PO Lorazepam 1 MG Q2P PRN 03/02 1330 AC PO Magnesium Hydroxide 30 ML AT BEDTIME PRN 03/02 1330 AC PO Melatonin 3 MG AT BEDTIME 03/04 2100 AC 03/04 PO 2148 Multivitamins 1 TAB DAILY 03/02 1312 AC 03/05 PO 0743 Nicotine 2 MG Q2P PRN 03/02 1315 AC 03/04 PO 1555 Trazodone HCl 250 MG AT BEDTIME 03/04 2100 AC 03/04 PO 2147 Laboratory Tests 03/03 0545 Chemistry Potassium (3.5 - 5.1 mmol/L) 4.7 Vital Signs Date Time Temp Pulse Resp B/P B/P Pulse O2 O2 Flow FiO2 Mean Ox Delivery Rate 03/05 1159 91 106/64 03/05 1153 91 106/64 03/05 0743 96.2 80 101/66 03/05 0727 96.2 80 101/66 03/04 1958 96.7 89 120/68 03/04 1955 96.7 89 120/68 03/04 1631 91 125/70 03/04 1604 91 125/70 MSE General appearance: good hygiene and grooming; Attitude: cooperative; Eye contact: appropriate; Movement: no psychomotor agitation or slowing; Speech: nl fluency, nl rate/rhythm, nl volume, nl prosody; Mood: "good" Affect: less irritable, remains flat, appropriate, constricted, non-labile, congruent; Thought process: linear and goal-directed; Thought content: denied SI or HI, no paranoid ideation; Perception: denied hallucinations- auditory, visual, does not appear to be responding to internal stimuli; I/J: limited A/P: Pt with hx of unpsecified mood disoder and PSD now with improved mood. Sleep remains as issue. -Continue current medication regimen -Encourage integration into the milieu
[2018-03-06 07:46] VITALS: BP 102/68
[2018-03-06 08:10] VITALS: BP 104/68
[2018-03-06] MEDS ORDERED: STRATTERA40 M1 PO (10:41)
[2018-03-06] MEDS ORDERED: PROZAC10 M1 PO (10:41)
[2018-03-06] MEDS ORDERED: MELATONIN3 M4 PO (10:41)
[2018-03-06] MEDS ORDERED: PROZAC40 M1 PO (10:41)
[2018-03-06] MEDS ORDERED: LIDODERM1 EACH TOP (10:41)
--- NOTE | 2018-03-06 10:47 | Patient Discharge Instructions ---
Psych Discharge Inst General Discharge Information Reason for Admission: SI. Relapsed with alcohol and cocaine 3 days after last discharge. Psy Discharge Primary Diag+ Unspecified depression Psy Discharge Secondary Diag+ Hx ADHD Alcohol use disorder Cocaine use disorder Summary Tests/Major Procedures Lab ALT 23 U/L 02/12/18 1629 AST 35 U/L 02/12/18 1629 BUN 11 mg/dL 02/28/18 2209 Carbon Dioxide 27 mmol/L 02/28/18 2209 Chloride 105 mmol/L 02/28/18 2209 Cholesterol 188 MG/DL 02/12/18 1629 Cholesterol/HDL Ratio 3 % 02/12/18 1629 Creatinine 0.7 mg/dL 02/28/18 220 Estimated GFR > 60 ml/min 02/28/182208 Free T4 1.62 ng/dL 02/12/18 1629 Glucose 126 mg/dL H 02/28/18 2209 HDL Cholesterol 62 mg/dL H 02/12/18 1629 Hemoglobin A1c 5.4 % 02/12/18 1629 LDL Cholesterol, Calc 109 mg/dL 02/12/18 1629 Potassium 4.7 mmol/L 03/03/18 0545 Sodium 146 mmol/L H 02/28/18 2209 TSH &T3 &Free T4 Intrp 0.089 uIU/mL L 02/12/18 1629 TSH &T3 &Free T4 Intrp 1.440 uIU/mL 02/28/18 2209 Total T3 0.91 ng/mL L 02/12/18 1629 Triglycerides 88 mg/dL 02/12/18 1629 Absolute Monocytes 0.7 /CUMM H 02/28/18 2209 Hct 39.2 % 02/28/189 Hgb 13.3 G/DL 02/28/18 2209 MCH 32.2 PG H 02/28/189 MCHC 34.0 G/DL 02/28/189 MPV 6.9 FL L 02/28/182208 Plt Count 344 /CUMM 02/28/182208 RBC 4.14 /CUMM L 02/28/182208 WBC 7.5 /CUMM 02/28/18 2209 Serum Alcohol 229.0 MG/DL 02/28/18 2209 Urine Cocaine Screen > 1000 NG/ML H 03/01/18 1517 Urine Test NEGATIVE 03/01/18 1512 Studies Pending at DC: None. Patient Instructions Contact Information Your Psychiatrist on [facility] was Nick Kulkarni MD * If you are experiencing an emergency related to this hospitalization, please call [phone] to contact the treating psychiatrist or the psychiatrist-on- call. * To Request a copy of your medical records, please contact the Medical Records Department at [phone]. * To request results of studies pending at the time of discharge, please call [phone]. * Continue your Medications until directed to stop by your Healthcare provider. General Medication Information Please continue to take your new medications and your continued home medications , unless otherwise indicated on your discharge medication list, or unless directed by your MD or [facility] [employer] DIRECTOR to stop them. Special Instructions Diet Regular Activity Normal - Tobacco Use Treatment Offered Post DC Medications Offered: Script Given-See Med List ([facility] (has supply)) Post DC Tobacco Treatment Plan: [facility] Program Appt Date: 03/15/18 Program Appt Time: 1600 - EtOH/Drug Use D/O Treatment Offered Post DC Medications Offered: Med Not Indicated for D/O Post DC EtOH/SubAbuse TX Plan: [facility] SubAbuse/Dual IOP Program Appt Date: 03/07/18 Program Appt Time: 1000 Metabolic Screening ([x]) Not Applicable, patient not on a neuroleptic. OR () Patient on a neuroleptic(s) . Enter below results for Hemoglobin A1C, and lipid panel if obtained during the last 365 days. BMI: 24.600 Blood Pressure: 104/68 Laboratory Results From [facility] (If applicable): Advance Directives Does the Patient have Medical Advance Directives No/Refused further info Does Pt have Psychiatric Advance Directives? No/Refused further info Does Patient have a Designated Surrogate Decision Maker: No Information About Psychiatric Advance Directives Provided? Refused Discharge Plan Post Hospital Treatment Plan: Plans to stay with friend, Luis. Referred to [facility] to start 03/07/18 at 10 a.m.
[2018-03-06 12:17] VITALS: BP 116/60
[2018-03-06 12:28] VITALS: BP 116/60
--- NOTE | 2018-03-06 13:50 | CP SOUTH PROGRESS NOTE PSYCH ---
Psych (Inpt) Progress Note Progress Note Include the following elements, when applicable: Involvement in the active treatment of the patient with behavioral observations of the patient and the patient's response to the treatment. Review of the ongoing treatment process in the context of the treatment plan. Indication of how multi-disciplinary staff members are carrying out the treatment plan. Plans for future interventions and recommendations for revision of the treatment plan. Liaison with other physicians/providers. Progress Note: Dr. Angel's notes reviewed. Case and treatment plan discussed in team meeting. Staff reports that the patient is denying SI. Patient seen at 10:22 a.m. She was in group prior to meeting with me in office. Reports feeling fine. States Strattera works but she still feels scattered and wants an increase to 80 mg/day. We agreed to increase dose to 40 mg b.i.d. States other than that, things are wonderful. Feels well. Likes peers here. Reports she slept better last night. Wants trazodone reduced back to 200 mg qhs upon discharge. Affect is calm and euthymic. Mood: "I'm in a good place." Reports feeling really well but a little sad because some peers are leaving. Sad 0/10. Anxiety ~5/10. Denies feeling hopeless, helpless or worthless. Feels guilty for having used and for having hurt people. Denies active and passive SI, HI, AH, VH and PI. Appetite: "good, way too good." Energy: good. Plans to stay with her friend, Luis, for a while. States her home is a trigger to use. Feels ready and safe for discharge. IMPRESSION: Condition improved. Okay for discharge today with IOP intake appointment tomorrow at 10 a.m.
--- NOTE | 2018-03-06 13:55 | DISCHARGE SUMMARY REPORT-PSYCH ---
Visit Information Visit Dates/Diagnosis' Admission Date: 03/02/18 Discharge Date: 03/06/18 Reason for Admission: SI. Relapsed with alcohol and cocaine 3 days after last discharge. Psy Discharge Primary Diag: Unspecified depression Psy Discharge Secondary Diag: Hx ADHD Alcohol use disorder Cocaine use disorder Hospital Course Significant Lab Findings: Lab ALT 23 U/L 02/12/18 1629 AST 35 U/L 02/12/18 1629 BUN 11 mg/dL 02/28/18 2209 Carbon Dioxide 27 mmol/L 02/28/18 2209 Chloride 105 mmol/L 02/28/18 2209 Cholesterol 188 MG/DL 02/12/18 1629 Cholesterol/HDL Ratio 3 % 02/12/18 162 Creatinine 0.7 mg/dL 02/28/182208 Estimated GFR > 60 ml/min 02/28/182208 Free T4 1.62 ng/dL 02/12/18 1629 Glucose 126 mg/dL H 02/28/18 2209 HDL Cholesterol 62 mg/dL H 02/12/18 162 Hemoglobin A1c 5.4 % 02/12/18 1629 LDL Cholesterol, Calc 109 mg/dL 02/12/18 1629 Potassium 4.7 mmol/L 03/03/18 0545 Sodium 146 mmol/L H 02/28/18 2209 TSH &T3 &Free T4 Intrp 0.089 uIU/mL L 02/12/18 162 TSH &T3 &Free T4 Intrp 1.440 uIU/mL 02/28/189 Total T3 0.91 ng/mL L 02/12/18 1629 Triglycerides 88 mg/dL 02/12/18 1629 Absolute Monocytes 0.7 /CUMM H 02/28/18 2209 Hct 39.2 % 02/28/182208 Hgb 13.3 G/DL 02/28/189 MCH 32.2 PG H 02/28/182208 MCHC 34.0 G/DL 02/28/182208 MPV 6.9 FL L 02/28/182208 Plt Count 344 /CUMM 02/28/182208 RBC 4.14 /CUMM L 02/28/182208 WBC 7.5 /CUMM 02/28/182208 Serum Alcohol 229.0 MG/DL 02/28/182208 Urine Cocaine Screen > 1000 NG/ML H 03/01/18 1517 Urine Test NEGATIVE 03/01/18 1512 Course Complications: None. Consultations: The patient was seen by Dr. Willard Patel for admission H&P. Please refer to his note for additional information. Allergies: Coded Allergies: Penicillins (PER PT WAS TOLD A KID 03/12/16) Hospital Course/TX Response: The patient was monitored on the unit for safety, alcohol withdrawal and mood disorder. She participated in multi-modal treatments on the unit. Precipitant to SI was probably a cocaine crash with EtOH use. Home medications were continued except for Ritalin, given her substance abuse. Strattera was started at 40 mg daily and is being increased to 40 mg b.i.d. Trazodone was increased to 250 mg qhs but is being reduced back to 200 mg qhs. Melatonin 3 mg qhs was added. Mood and affect have improved. SI has remitted. Progress note from date of discharge, 03/06/18: "Dr. Angel's notes reviewed. Case and treatment plan discussed in team meeting. Staff reports that the patient is denying SI. Patient seen at 10:22 a.m. She was in group prior to meeting with me in office. Reports feeling fine. States Strattera works but she still feels scattered and wants an increase to 80 mg/day. We agreed to increase dose to 40 mg b.i.d. States other than that, things are wonderful. Feels well. Likes peers here. Reports she slept better last night. Wants trazodone reduced back to 200 mg qhs upon discharge. Affect is calm and euthymic. Mood: "I'm in a good place." Reports feeling really well but a little sad because some peers are leaving. Sad 0/10. Anxiety ~5/10. Denies feeling hopeless, helpless or worthless. Feels guilty for having used and for having hurt people. Denies active and passive SI, HI, AH, VH and PI. Appetite: "good, way too good." Energy: good. Plans to stay with her friend, Luis, for a while. States her home is a trigger to use. Feels ready and safe for discharge. IMPRESSION: Condition improved. Okay for discharge today with IOP intake appointment tomorrow at 10 a.m." Discharge HBIPS - Tobacco Use Treatment Offered Post DC Medications Offered: Script Given-See Med List (Yinka Hammonds.) Post DC Tobacco Treatment Plan: [facility] Program Appt Date: 03/15/18 Program Appt Time: 1600 - EtOH/Drug Use D/O Treatment Offered Post DC Medications Offered: Med Not Indicated for D/O Post DC EtOH/SubAbuse TX Plan: [facility] SubAbuse/Dual IOP Program Appt Date: 03/07/18 Program Appt Time: 1000 Metabolic Screening - Screen if on a Neuroleptic Medication - Metabolic screening should include: - Blood Pressure, BMI, Glucose or Hgb A1c, & a - Lipid profile from within the past 365 days. Metabolic Screening ([x]) Not Applicable, patient not on a neuroleptic. OR () Patient on a neuroleptic(s) . Enter below results for Hemoglobin A1C, and lipid panel if obtained during the last 365 days. BMI: 24.600 Blood Pressure: 116/60 Laboratory Results From [facility] (If applicable): Discharge Instructions General Discharge Information Multiple Neuroleptics: ([x]) Not Applicable OR Document below three failed attempts at monotherapy, or a plan to taper to monotherapy, or augmentation of Clozapine. () Discharge Diet Regular Discharge Activity Normal DC Disposition: Planning to stay with friend, Luis. Referrals Ordered Referrals Provider Referral 03/07/18 For Groups: [[facility]] [facility] [address], [place] [phone] Intake appointment: 03/07/18, at 1:15pm Provider Referral 03/15/18 For Providers: [[facility]] For Groups: [[facility]ation [facility]] [facility] [address], [place] [phone] Group meets every other Tuesday at 4pm Next group: 03/15/18, at 4pm Prescriptions Stop taking the following medications: Methylphenidate HCl (Ritalin) 20 MG TABLET ORAL DAILY Qty = 14 Continue taking these medications: Albuterol Sulfate (Proair Hfa) 0.09 MG/Actuation BERNADETTE 2 PUFF Inhale through mouth as needed for ASTHMA Comments: PER PT Cyclobenzaprine HCl (Cyclobenzaprine HCl) 5 MG TABLET 1 Tablet ORAL THREE TIMES A DAY NEEDED Days = 30 Comments: Last Taken:NOT GIVEN IN THE HOSPITAL Time: Nicotine (Nicorelief) 2 MG GUM 1 Gum ORAL EVERY 2 HOURS NEEDED as needed for nicotine craving Qty = 100 Comments: Last Taken:03/06/18 Time:9:30AM Trazodone HCl (Trazodone HCl) 100 MG TABLET 2 Tablet ORAL AT BEDTIME Qty = 28 Comments: Last Taken:TO START THIS DOSE TONIGHT Time:RECEIVED 250MG ON 03/05/18 AT 9:45PM Buspirone HCl (Buspirone HCl) 15 MG TABLET 1 Tablet ORAL TWICE DAILY Qty = 28 Comments: Last Taken:03/06/18 Time:8AM Multivitamin (Once Daily) 1 EACH TABLET 1 Tablet ORAL DAILY Qty = 14 Comments: Last Taken:03/06/18 Time:8AM Gabapentin (Gabapentin) 300 MG CAPSULE 3 Capsule ORAL THREE TIMES DAILY Qty = 126 Comments: Last Taken:03/06/18 Time:8AM Fluoxetine HCl (Prozac) 40 MG CAPSULE 1 Capsule ORAL DAILY Qty = 14 Instructions: part of 50 mg total daily dose Comments: Last Taken:03/06/18 Time:8AM This prescription has been renewed Fluoxetine HCl (Prozac) 10 MG CAPSULE 1 Capsule ORAL DAILY Qty = 14 Instructions: part of 50 mg total daily dose Comments: Last Taken:03/06/18 Time:8AM This prescription has been renewed Start taking the following new medications: Melatonin (Melatonin) 3 MG TABLET 1 Milligram ORAL AT BEDTIME Qty = 14 No Refills Comments: Last Taken:03/05/18 Time:9:45PM Atomoxetine HCl (Strattera) 40 MG CAPSULE 1 Capsule ORAL TWICE DAILY Qty = 28 No Refills Comments: Last Taken:03/06/18 Time:8AM The following medications have been changed: Old: Lidocaine HCl (Lidoderm Patch) 5 % PAT 1 Patch On the skin as needed for PAIN Qty = 30 New: Lidocaine (Lidoderm) 5 % ADH..PATCH 1 Patch On the skin DAILY as needed for pain Qty = 14 Comments: Last Taken:NOT USED IN THE HOSPITAL Time: Studies Pending at Discharge None. Copies To: Intensive Outpt Psy-Substance
--- NOTE | 2018-03-06 18:35 | SOCIAL WORKER PROG NOTE PSYCH ---
Social Work Progress Note Progress Note This medical writer met with patient. She denied SI/HI/AH/VH and discussed looking forward to discharge today and feeling safe to discharge. She stated that she plans on attending [facility] with an intake tomorrow at 1:15pm as well as daily AA meetings. Patient had originally accepted an IOP intake time of 11:30am on , but requested the 1:15pm time as she will have access to transportation to and from the 1:15pm intake time. Patient identified a safety plan to "call Luis." She was also accepting of the crisis numbers and warm lines. Patient stated that she plans to obtain a sponsor through AA. Patient was informed that this medical writer left a vm for Brianna Douglas at [facility] inquirng about any limitations to inpatient/rehab. Patient refused a family meeting. Faxed Referral(s) Referred To: [facility] Transition of Care Documents sent: Health Summary Faxed to: [facility] Fax #: [phone] Faxed by: Thi Marin LCSW Date faxed: 03/06/18 Time Faxed: [phone]
--- NOTE | 2018-03-07 11:03 | SOCIAL WORKER PROG NOTE PSYCH ---
Social Work Progress Note Progress Note This bond underwriter received a call from Brianna Douglas at [facility] stating that there are no limitations regarding length of stay for inpatient treatment for this patient. This information was relayed to Jorge Reilly at [facility].
== END 2018-03-06 14:05 | DRG 754 ==
LOC: ERH 21:09 → ERHI 03-02 11:18 → CP SOUTH 03-02 11:18 → EDBEDREQSVC 03-02 12:08 → ENTRNSPT 03-02 16:35 → EDTRNSPTSTS 03-02 16:42 → EDTRNSPT 03-02 16:42 → CP SOUTH 03-02 16:55 → CMPTRNSPT 03-02 16:57 → CP SOUTH 03-03 09:24
PROVIDERS: Emergency Medicine
DX: F32.9 Major depressive disorder, single episode, unspecified (principal); F90.9 Attention-deficit hyperactivity disorder, unspecified type; F10.10 Alcohol abuse, uncomplicated; F14.90 Cocaine use, unspecified, uncomplicated
CPT/HCPCS: 80307; 81025; 96372; G0463; G0480; J0515; J1200; J1630; J3490

== ENCOUNTER 2018-04-14 20:26 | Inpatient (IN) | payer OTHER ==
[~2018-04-14] VITALS: Ht 165.1 cm; Wt 60.8 kg
[~2018-04-14 20:26] MED LIST changes: +LIDODERM1 EACH TOP; +MELATONIN3 M4 PO; +STRATTERA40 M1 PO
--- NOTE | 2018-04-14 21:13 | ED PSYCHIATRIC COMPLAINT ---
See Addendum History of Present Illness General Chief Complaint: ETOH/Drug Related Complaint Stated Complaint: BIBA +SI, +ETOH, TOOK TRAZODONE, POLICE PAPERED Source: patient, EMS Exam Limitations: intoxication Vital Signs & Intake/Output Vital Signs & Intake/Output Vital Signs Date Time Temp Pulse Resp B/P B/P Pulse O2 O2 Flow FiO2 Mean Ox Delivery Rate 04/17 0017 98.8 81 26 146/94 / 2225 98.8 81 16 146/94 97 Room Air 04/16 2039 98.0 94 18 138/72 / 1948 98.6 102 18 144/76 97 Room Air / 1840 98.0 110 18 123/86 / 1840 98.7 110 18 123/83 98 Room Air / 1730 98.0 71 18 116/84 / 1730 98.4 71 18 116/84 98 Room Air / 1530 94.0 92 18 129/70 /15 1530 97.0 92 18 129/70 94 Room Air 04/16 1330 97.0 102 18 130/76 07/15 1330 98.6 102 18 130/76 97 Room Air / 1055 97.2 73 18 131/76 07/15 0829 97.2 73 16 131/76 95 Room Air / 0627 98.7 90 16 135/75 98 Room Air Allergies Coded Allergies: Penicillins (PER PT WAS TOLD A KID 03/12/16) Reconcile Medications Albuterol Sulfate (Proair Hfa) 0.09 MG/Actuation BERNADETTE 2 PUFF INH PRN ASTHMA ( Reported) Atomoxetine HCl (Strattera) 40 MG CAPSULE 1 CAP PO BID@0900,1600 ADHD Buspirone HCl 15 MG TABLET 1 TAB PO BID anxiety Cyclobenzaprine HCl 5 MG TABLET 1 TAB PO TIDPRN MUSCLE SPASM Fluoxetine HCl (Prozac) 40 MG CAPSULE 1 CAP PO DAILY depression part of 50 mg total daily dose Fluoxetine HCl (Prozac) 10 MG CAPSULE 1 CAP PO DAILY depression part of 50 mg total daily dose Gabapentin 300 MG CAPSULE 3 CAP PO TID off-label for anxiety Lidocaine (Lidoderm) 5 % ADH..PATCH 1 PAT TOP DAILY PRN pain Melatonin 3 MG TABLET 1 MG PO AT BEDTIME insomnia Multivitamin (Once Daily) 1 EACH TABLET 1 TAB PO DAILY vitamin supplement Nicotine (Nicorelief) 2 MG GUM 1 GUM PO Q2P PRN nicotine craving Trazodone HCl 100 MG TABLET 2 TAB PO AT BEDTIME insomnia Triage Note: [facility] FROM HOME. PER EMS PT ADMITTED TO TAKING AN UNKNOWN AMOUNT OF TRAZODONE, GABAPENTIN, PROZAC, AND ALCOHOL. PT DID NOT VERBALIZE ANY PHYSICAL COMPLAINTS BUT STATED MULTIPLE TIMES TO EMS "LET ME GO" AND "LET ME ." PT ON STRETCHER AT THIS TIME STATING "WHY DON'T THEY JUST LET ME ." PT STATES SHE DOES NOT KNOW HOW MANY PILLS SHE TOOK OR HOW MUCH ALCOHOL SHE DRANK. PT DENIES ANY PHYSICAL COMPLAINTS AT THIS TIME. PT DENIES HI. RESPIRATIONS NON-LABORED. SKIN WARM/DRY. PT TEARFUL AT TIMES. Triage Nurses Notes Reviewed? yes HPI: 48-year-old female presented to the emergency department brought in by ambulance reporting that she drank a significant amount of alcohol, and also had used crack cocaine, however she could not explain to me whether this was snorted or injected. She states that she was trying to kill herself, and reports frequently that she wants to . She states that she has had 27 prior attempts at suicide. She reports living by herself, and denies any support system. (Jeana West) Past History Travel History Traveled to [place] past 21 day No Medical History Any Pertinent Medical History? see below for history Neurological: NONE EENT: NONE Cardiovascular: NONE Respiratory: NONE Gastrointestinal: NONE Hepatic: NONE Renal: NONE Musculoskeletal: degen joint disease Psychiatric: alcohol dependence, depression, substance abuse, ADHD Endocrine: NONE Blood Disorders: NONE Cancer(s): NONE ACID PURIFIER/Reproductive: NONE History of MRSA: No History of VRE: No History of CDIFF: No Surgical History Surgical History: NECK SURGERY, TONSILLECTOMY, CARPAL TUNNEL Psychosocial History Who do you live with Patient/Self Services at Home None What is your primary language Korean Tobacco Use: Refused to answer Family History Family History, If Any: MOTHER Brain cancer Relation not specified for: *No pertinent family history Colon cancer in mother Hypertension in father Hx Contributory? No (Jeana West) Review of Systems Review of Systems Constitutional: Reports: see HPI. EENTM: Reports: no symptoms. Respiratory: Reports: no symptoms. Cardiovascular: Reports: no symptoms. GI: Reports: no symptoms. Genitourinary: Reports: no symptoms. Musculoskeletal: Reports: no symptoms. Skin: Reports: no symptoms. Neurological/Psychological: Reports: see HPI. Hematologic/Endocrine: Reports: no symptoms. Immunologic/Allergic: Reports: no symptoms. All Other Systems: Reviewed and Negative (Jeana West) Physical Exam Physical Exam General Appearance: awake, mild distress, intoxicated Head: atraumatic, normal appearance Eyes: Bilateral: other (myopic). Ears, Nose, Throat: hearing grossly normal Neck: normal inspection, full range of motion Respiratory: normal breath sounds, chest non-tender, no respiratory distress Cardiovascular: regular rate/rhythm Gastrointestinal: soft, non-tender Extremities: normal range of motion Neurological/Psychiatric: awake, agitated, patient continues to report suicidal ideations during exam, stating "please just let me " Appearance/Memory/Insight: impaired insight, impaired recent memory, impaired remote memory Behavoir/Eye Contact/Speech: belligerent Thoughts/Hallucinations: difficult to assess thought pattern with intoxication, incoherent at times during discussion Skin: intact, normal color, warm/dry SAD PERSONS SAD PERSONS Response Value Depression/Hopelessness? yes 2 Previous Attempts/Psych Care yes 1 Excessive Ethanol/Drug Use? yes 1 Rational Thinking Loss? yes 2 Single//? yes 1 Organized/Serious Attempt yes 2 Social Support? has no support 1 Stated Future Intent? yes 2 Total 12 SAD PERSONS Done? yes (Jeana West) Progress Differential Diagnosis: drug intoxication, drug overdose, drug withdrawal, electrolyte abnormality Plan of Care: Orders Procedure Date/time Status Heart Healthy Diet 04/16 B Active Current Medications Sig/Bailee Start time Last Medication Dose Stop Time Status Admin Lorazepam 2 MG ONCE ONE 04/16 1930 CAN (Ativan) 04/16 1931 Gabapentin 300 MG Q8 04/16 1400 UNVr 04/16 (Neurontin) 1357 40-year-old female presented to the emergency department brought in by ambulance reporting alcohol and crack cocaine use. Patient has extensive history of suicidal attempts and current suicidal ideation. Blood work and urine pending. Patient started on Ativan and 1 L IV fluids. Straight cath performed d/t bladder scan >999ml. Will repeat bladder scan and determine need for rodgers cath. -pending crisis consult -patient signed out to Dr. Crawford by me at 12am. Diagnostic Imaging: Viewed by Me: Radiology Read. Discussed w/RAD: Radiology Read. Radiology Impression: PATIENT: ATIF THOMAS PRESENT AGE: 48 PATIENT ACCOUNT NO: [id number] : 70 LOCATION: [facility] ORDERING PHYSICIAN: Jeana DAWSON SERVICE DATE: 04/14/18 EXAM TYPE: RAD - XRY-PORTABLE CHEST XRAY EXAMINATION: XR PORTABLE CHEST CLINICAL INFORMATION: Alcohol. COMPARISON: None. TECHNIQUE: AP portable upright view of the chest FINDINGS: Lungs are clear. Lateral costophrenic sulci are not fully included on these images. No consolidation, pneumothorax, or pleural effusion. Cardiac and mediastinal contours are normal. Pulmonary vasculature is unremarkable. Osteoarthritis is present in the acromioclavicular joints. No acute osseous findings. IMPRESSION: No acute cardiopulmonary findings DICTATED BY: Parrish Frias MD DATE/TIME DICTATED:04/14/182231 BEAMSTER: BRAYDEN DATE/TIME TRANSCRIBED:04/14/182231 CONFIDENTIAL, DO NOT COPY WITHOUT APPROPRIATE AUTHORIZATION. <Electronically signed in Other Vendor System> SIGNED BY: Parrish Frias MD 04/14/182235 Hand-Off Endorsed To: Andrés Crawford DO Endorsed Time: 14 Pending: consult, labs (Jeana West) Comments: 04/15/2018 8:22:39 AM patient signed out to me by Dr. Crawford at shift change number operator. 04/15/2018 8:01:11 PM patient signed out to Dr. Crawford at shift change number operator. 04/16/2018 7:52:17 PM patient signed out to Dr. Diane at shift change number operator after an uneventful emergency department stay during the day shift. (Soni BUCKLEY,Andrés Chambers) Departure Departure Disposition: STILL A PATIENT Condition: Stable Clinical Impression Primary Impression: Cocaine abuse Secondary Impressions: ETOH abuse Referrals: Willard Patel MD (PCP/Family) Departure Forms: Customer Survey General Discharge Information (Jeana West) Departure Comments The patient was signed out to me by SAMIR Hills. She was intoxicated but denied any complaints on my evaluation at 2 AM. She is pending evaluation by crisis in the a.m. The patient was signed out to Dr. Aguirre at 7 AM. (Andrés Crawford DO) Departure Comments pt to be signed out to dr. aguirre, 04/17/18, 7am. PA/DIRECTOR PAID MEDIA Co-Sign Statement Statement: ED Attending supervision documentation- [] I saw and evaluated the patient. I have also reviewed all the pertinent lab results and diagnostic results. I agree with the findings and the plan of care as documented in the PA's/DIRECTOR PAID MEDIA's documentation. [X] I have reviewed the ED Record and agree with the PA's/DIRECTOR PAID MEDIA's documentation. [] Additions or exceptions (if any) to the PAs/DIRECTOR PAID MEDIA's note and plan are summarized below: [] (Roxi BUCKLEY,Nick Whitlock) 04/15/2018 8:22:39 AM patient signed out to me by Dr. Crawford at shift change number operator. 04/15/2018 8:01:11 PM patient signed out to Dr. Crawford at shift change number operator. (Soni BUCKLEY,Andrés Chambers) Departure Departure Disposition: STILL A PATIENT Condition: Stable Clinical Impression Primary Impression: Cocaine abuse Secondary Impressions: ETOH abuse Referrals: Willard Patel MD (PCP/Family) Departure Forms: Customer Survey General Discharge Information (Jeana West) Departure Comments The patient was signed out to me by SAMIR Hills. She was intoxicated but denied any complaints on my evaluation at 2 AM. She is pending evaluation by crisis in the a.m. The patient was signed out to Dr. Aguirre at 7 AM. (Andrés Crawford DO)
[2018-04-14 21:36] LABS: ABSOLUTE BASOPHIL COUNT 0 /CUMM (0.0-0.2); ABSOLUTE EOSINOPHIL COUNT 0 /CUMM (0.0-0.7); ABSOLUTE GRANULOCYTE CT 3.4 /CUMM (1.4-6.5); ABSOLUTE LYMPH COUNT 1.6 /CUMM (1.2-3.4); ABSOLUTE MONOCYTE COUNT 0.4 /CUMM (0.10-0.60); BASOPHIL % 0.4 % (0.0-2.0); EOSINOPHIL % 0.7 % (0-5); HEMATOCRIT 40.3 % (37-47); MEAN CORPUSCULAR HGB 31.3 PG (27.0-31.0); MEAN CORPUSCULAR HGB CONC 33.7 G/DL (33.0-37.0); MEAN PLATELET VOLUME 6.8 FL (7.4-10.4); PLATELET COUNT 356 /CUMM (130-400); RBC DISTRIBUTION WIDTH 12.8 % (11.5-14.5); RED BLOOD CELL CT 4.33 /CUMM (4.20-5.40); WHITE BLOOD CELL COUNT 5.5 /CUMM (4.8-10.8)
--- NOTE | 2018-04-14 22:36 | RADIOLOGY REPORT ---
EXAMINATION: XR PORTABLE CHEST CLINICAL INFORMATION: Alcohol. COMPARISON: None. TECHNIQUE: AP portable upright view of the chest FINDINGS: Lungs are clear. Lateral costophrenic sulci are not fully included on these images. No consolidation, pneumothorax, or pleural effusion. Cardiac and mediastinal contours are normal. Pulmonary vasculature is unremarkable. Osteoarthritis is present in the acromioclavicular joints. No acute osseous findings. IMPRESSION: No acute cardiopulmonary findings
[2018-04-15 14:16] VITALS: BP 141/87
--- NOTE | 2018-04-15 15:50 | ED PSYCH CRISIS CONSULTATION ---
See Addendum Crisis Consult Basic Assessment Date of Consult: 04/15/18 Responsible Person/Accompanied By: ISREAL epps Insurance Authorization: Insurance #1: Insurance name: SUSIE MARION Phone number: Policy number: [id number] Group number: Authorization number: ED Provider: Patient's ED Provider: Jeana West Primary Care Physician: Patient's PCP: Willard Patel MD PCP's Current Psychiatrist: none Chief Complaint: ETOH/Drug Related Complaint Patient's Quote: "I was drinking and I took pills" Present Illness: Patient is a 48 year old female ISREAL last night intoxicated on a PEER after she told police she tried to kill herself by overdosing. Pt's BAL was 237 at 21:44 last night. Pt's UDS is positive for cocaine. Upon meeting with the pt she stated she just took some Ativan because she was withdrawing from Alcohol and was not feeling well. Pt reports she doesn't remember how she got her and what happened last night. The last thing she remembers is sitting on her couch drinking. She reports she was drinking 1/8 of vodka. Pt reports she took pills with the alcohol with the intent to kill herself. She does not recall what pills she took, however triage notes indicate she took Trazodone. ED also completed a tylenol level- to rule out tylenol toxicity- levels were normal. Pt was not able to identify a trigger for attempting suicide. Pt reports she did not follow up with IOP post discharge from [facility] (~6 weeks ago) because she did not have a ride. Pt reports she was sober for ~ three weeks after her discharge from [facility]. Pt's longest period of was 5 years ago and she was sober for 10 years. Pt's last detox was 09/2017 and last rehab was also 09/2017. Pt is currently living alone which is a risk factor. Pt plans to go live with a friend after this incident. Pt is agreeable to come inpatient. At this time, pt denies SI/HI/AH. Pt endorse fly-aways in her peripheral vision, likely symptom of etoh withdrawl. Additionally she reports she is shaking, sweating, weak, her legs hurt, she's hungry and had diarrehea. Pt's most recent CIWA score is 4, highest in ED 5. Nurse informed of pt's complaints. Crisis completed the C-SSRS with patient. Pt has the following risk factors: previous suicide attempts, recent suicide attempt by overdose, wishes to be , feeling alone, previous psych diagnoses, non compliant w/ treatment, not recieving tx, hopeless, helpless, major depressive episode, highly impulsive behavior, substance abuse, method of suicide available. Pt has the following protective factors "identifies reason for living". Pt requires inpatient psychiatric hospitalization. Pt will be a bed search [facility] is full. Patient's Address: [address] [place] [address] Other Phone Number: Who Do You Live With? Patient/Self Family/Informants Interviewed: no family/collateral ID'd Allergies - Coded Allergies: Penicillins (PER PT WAS TOLD A KID 03/12/16) Current Medications - Scheduled Medications Atomoxetine HCl (Strattera) 40 MG CAPSULE 1 CAP PO BID@0900,1600 ADHD #28 CAP Prescribed by Nick Kulkarni MD on 03/06/18 Buspirone HCl 15 MG TABLET 1 TAB PO BID anxiety #28 TAB Prescribed by Nick Kulkarni MD on 02/16/18 Cyclobenzaprine HCl 5 MG TABLET 1 TAB PO TIDPRN MUSCLE SPASM 30 Days Prescribed by Ryan Rodriguez on 03/23/16 Fluoxetine HCl (Prozac) 40 MG CAPSULE 1 CAP PO DAILY depression #14 CAP Prescribed by Nick Kulkarni MD on 03/06/18 Fluoxetine HCl (Prozac) 10 MG CAPSULE 1 CAP PO DAILY depression #14 CAP Prescribed by Nick Kulkarni MD on 03/06/18 Gabapentin 300 MG CAPSULE 3 CAP PO TID off-label for anxiety #126 CAP Prescribed by Nick Kulkarni MD on 02/16/18 Melatonin 3 MG TABLET 1 MG PO AT BEDTIME insomnia #14 TAB Prescribed by Nick Kulkarni MD on 03/06/18 Multivitamin (Once Daily) 1 EACH TABLET 1 TAB PO DAILY vitamin supplement #14 TAB Prescribed by Nick Kulkarni MD on 02/16/18 Trazodone HCl 100 MG TABLET 2 TAB PO AT BEDTIME insomnia #28 TAB Prescribed by Nick Kulkarni MD on 02/16/18 Scheduled PRN Medications Albuterol Sulfate (Proair Hfa) 0.09 MG/Actuation BERNADETTE 2 PUFF INH PRN ASTHMA ( Reported) Entered as Reported by Kathy Emery on 08/08/15 1630 Lidocaine (Lidoderm) 5 % ADH..PATCH 1 PAT TOP DAILY PRN pain #14 PAT Prescribed by Nick Kulkarni MD on 03/06/18 Nicotine (Nicorelief) 2 MG GUM 1 GUM PO Q2P PRN nicotine craving #100 GUM Prescribed by Nick Kulkarni MD on 02/16/18 Laboratory Results: Laboratory Tests 04/14/18 2245: Urine Opiates Screen < 100, Methadone Screen 43, Barbiturate Screen < 60, Ur Phencyclidine Scrn < 6.00, Amphetamines Screen < 100, U Benzodiazepines Scrn < 85, Urine Cocaine Screen > 1000 H, Urine Cannabis Screen < 5.00 04/14/18 2144: Anion Gap 16, Estimated GFR > 60, BUN/Creatinine Ratio 20.0, Glucose 112 H, Calcium 9.0, Total Bilirubin 0.4, AST 37 H, ALT 35, Alkaline Phosphatase 100, Total Protein 6.9, Albumin 4.0, Globulin 2.9, Albumin/Globulin Ratio 1.4, Total Beta HCG NEGATIVE, Salicylates < 1.0, Acetaminophen < 10.0 L, Serum Alcohol 237.0 04/14/182049: PT 12.0, INR 1.10, CBC w Diff NO MAN DIFF REQ, RBC 4.33, MCV 93.0, MCH 31.3 H, MCHC 33.7, RDW 12.8, MPV 6.8 L, Gran % 62.0, Lymphocytes % 29.0, Monocytes % 7.9, Eosinophils % 0.7, Basophils % 0.4, Absolute Granulocytes 3.4, Absolute Lymphocytes 1.6, Absolute Monocytes 0.4, Absolute Eosinophils 0, Absolute Basophils 0 04/14/182043: Urine Test Cancelled (Joyce Short LCSW) Addendum Addendum Addendum 04/16/18 10:15 am: This pt. was seen this morning for re-eval. When she heard this proposal writer speaking with another pt. in the hallway about a "bed search" she asked what that was and was concerned that if she was sent somewhere else she would not have a way to transport herself back home. It was explained to her that she would receive transportation through an ambulance to get to another hospital, if she was sent, and the hospital could help her arrange for a ride home when she was released. She seemed somewhat reassured by this. She was lethargic and anxious and nodded "yes" to wanting to stay and be hospitalized. (Taqueria LUZ,Karolina) Past History Past Medical History Neurological: NONE EENT: NONE Cardiovascular: NONE Respiratory: NONE Gastrointestinal: NONE Hepatic: NONE Renal: NONE Musculoskeletal: degen joint disease Psychiatric: alcohol dependence, depression, substance abuse, ADHD Endocrine: NONE Blood Disorders: NONE Cancer(s): NONE ELECTRICAL CONTROLS DESIGNER/Reproductive: NONE Past Surgical History Surgical History: NECK SURGERY, TONSILLECTOMY, CARPAL TUNNEL Psychosocial History Strengths/Capabilities: Pt has a long history of substance abuse and mental health issues. However patient does report a period of time 5 years ago in which she was sober for 10 years. Pt is seeking help at this time. Physical Limitations (Interventions): By history- Chronic back pain s/t degenerative disc disease Psychiatric Treatment History Psych Treatment Psychiatric Treatment Yes Inpatient Treatment Yes Outpatient Treatment Yes Location of Treatment [facility] Reason for Treatment depression, substance abuse, +SI Dates of Treatment Last [facility] admit- 03/02/18-03/06/18 Response to Treatment pt has a pattern of not following up with discharge plans post discharge from [facility]. Pt missed her last intake at [facility]. Due to her missing 3+ intakes, she is no longer able to be rescheduled. Another discharge plan will need to be created upon discharge. Diagnosis by History: Major Depression, Alcohol Abuse, Opiate Abuse Substance Use/Abuse History Drug Use/Abuse 1 Substances Used/Abused Yes Substance Used/Abused Alcohol First Use unk Last Used 04/14/18 How much used/taken 1/8 of vodka How often daily For how long 1x/week Route of use oral Drug Use/Abuse 2 Substances Used/Abused Yes Substance Used/Abused Crack Cocaine First Use unk Last Used UDS + cocaine Substance Abuse Treatment Substance Abuse Treatment Past Substance Abuse TX Yes Inpatient Treatment Yes Outpatient Treatment Yes Location of Treatment [facility], [facility], [facility], [facility], [facility] Reason for Treatment detox/ rehab for Abuse of multiple substances Dates of Treatment various Response to Treatment she has not been able to maintain soberity (Renetta Short LCSW Current Mental Status Mental Status Orientation: Person, Place, Situation Affect: Sad Speech: Soft Neuro-vegetative: Concentration Poor, Sleep Disturbance Appearance Appearance- Dress/Hygiene: Pt presents in hospital attire. Hair is unkempt. Hygiene is adequate. Behaviors Thought Process: WNL Thought Content: Visual Hallucinations (fly-aways ) Memory: WNL Insight: Fair SI/HI Risk Assessment Past Suicidal Ideation/Attempts Yes Current Suicidal Ideation/Att Yes Past Homicidal Ideation/Att: No Current Homicidal Ideation/Attempts No Degree of Intent: overdosed on pills 04/14 Danger To: Self Risk Factors: chronic/serious med cond., history of suicide atmpts, SA/MH hospitalized, substance abuse, poor impulse control, lives alone, limited support Lethality Ratin PTSD Checklist PTSD Done? patient declined ED Management Sitter: Yes Restraints: No (Joyce Short LCSW) DSM5/PS Stressors/Medical Prob Diagnosis' (DSM 5, Stressors, Medical): F33.2 Major Depressive Disorder, Recurrent, Severe F10.20 Alcohol Use Disorder, Severe F14.20 Stimulant Use Disorder- Cocaine Type Medical: Degenerative Joint Disease by hx Stressors: finanes, lack of support system, housing (pending foreclosures) by hx Current GAF: 22 (Joyce Short LCSW) Departure Disposition Psych Medical Clearance Date: 04/15/18 Medically Cleared at: 1520 Time Started: 1520 Time Ended: 1540 Psychiatrist Consulted: Dr. Angel Date Disposition Established: 04/15/18 Time Disposition Established: 1650 Plan for Disposition - Modality: Bed Search Rationale for Disposition: Pt requires inpatient psych hospitalization due to recent suicide attempt by overdose w/ etoh and pills. Pt continues to have intermittant SI. Referrals Willard Patel MD (PCP/Family) (Joyce Short LCSW)
[2018-04-16 10:55] VITALS: BP 131/76
--- NOTE | 2018-04-16 12:12 | ED PSYCHIATRIST/APRN CONSULT ---
Psychiatrist/INVESTMENT EXECUTIVE ED Consult Assessment and Plan: Pt seen as f/u Pt notes that she still doing poorly. Endorses continued SI. MSE Appearance: as stated age Speech : nl rate, rhythm, volume and prosody Behavior: cooperative Motor: no psychomotor agitation or retardation Mood : "just OK" Affect : flat, non-labile, irritable, appropriate, constricted Thought process: linear and goal directed Thought content : no delusions or paranoia Perceptions: denied AVHs, +SI, denied HI Insight: poor Judgment: poor A/P: Pt with worsening mood now with continued danger to self in need of acute psychiatric stablization. Bed search underway.
[2018-04-16 13:30] VITALS: BP 130/76
[2018-04-16 15:30] VITALS: BP 129/70
[2018-04-16 17:30] VITALS: BP 116/84
[2018-04-16 18:40] VITALS: BP 123/86
[2018-04-16 20:39] VITALS: BP 138/72
[2018-04-17] VITALS (10 sets, daily range): BP systolic 110–146; BP diastolic 70–94
[2018-04-17] MEDS ORDERED: NUVIGIL250 M1 PO (11:26)
[2018-04-17] MEDS ORDERED: VALACYCLOVIR1000 MG PO (11:27)
--- NOTE | 2018-04-17 16:16 | IP CRISIS DIAG ASSESS PSYCH ---
See Addendum Diagnostic Assessment Basic Assessment Insurance Authorization: Insurance #1: Insurance name: SUSIE Burger [employer] Phone number: Policy number: [id number] Group number: Authorization number: Primary Care Physician: Patient's PCP: Willard Patel MD PCP's Patient's Quote: "I was drinking and I took pills" Present Illness: Patient is a 48 year old female BIBA last night intoxicated on a PEER after she told police she tried to kill herself by overdosing. Pt's BAL was 237 at 21:44 last night. Pt's UDS is positive for cocaine. Upon meeting with the pt she stated she just took some Ativan because she was withdrawing from Alcohol and was not feeling well. Pt reports she doesn't remember how she got her and what happened last night. The last thing she remembers is sitting on her couch drinking. She reports she was drinking 1/8 of vodka. Pt reports she took pills with the alcohol with the intent to kill herself. She does not recall what pills she took, however triage notes indicate she took Trazodone. ED also completed a tylenol level- to rule out tylenol toxicity- levels were normal. Pt was not able to identify a trigger for attempting suicide. Pt reports she did not follow up with IOP post discharge from [facility] (~6 weeks ago) because she did not have a ride. Pt reports she was sober for ~ three weeks after her discharge from [facility]. Pt's longest period of was 5 years ago and she was sober for 10 years. Pt's last detox was 09/2017 and last rehab was also 09/2017. Pt is currently living alone which is a risk factor. Pt plans to go live with a friend after this incident. Pt is agreeable to come inpatient. At this time, pt denies SI/HI/AH. Pt endorse fly-aways in her peripheral vision, likely symptom of etoh withdrawl. Additionally she reports she is shaking, sweating, weak, her legs hurt, she's hungry and had diarrehea. Pt's most recent CIWA score is 4, highest in ED 5. Nurse informed of pt's complaints. Crisis completed the C-SSRS with patient. Pt has the following risk factors: previous suicide attempts, recent suicide attempt by overdose, wishes to be , feeling alone, previous psych diagnoses, non compliant w/ treatment, not recieving tx, hopeless, helpless, major depressive episode, highly impulsive behavior, substance abuse, method of suicide available. Pt has the following protective factors "identifies reason for living". Patient's Address: [address] [place] [address] Other Phone Number: Who Do You Live With? Patient/Self Feel Safe Where You Live? Yes Feel Safe in Your Relationship Yes Marital Status: Do You Have Children? No Primary Language? Lao Language(s) Spoken At Home: Lao Family/Informants Interviewed: no family/collateral ID'd Allergies - Coded Allergies: Penicillins (PER PT WAS TOLD A KID 03/12/16) Current Medications - Scheduled Medications Armodafinil (Nuvigil) 250 MG TABLET 1 TAB PO QAM NARCOPLEPSY #30 (Reported) Entered as Reported by Jeramie Fang on 04/17/18 1126 Atomoxetine HCl (Strattera) 40 MG CAPSULE 1 CAP PO BID@0900,1600 ADHD #28 CAP Prescribed by Nick Kulkarni MD on 03/06/18 Buspirone HCl 15 MG TABLET 1 TAB PO BID anxiety #28 TAB Prescribed by Nick Kulkarni MD on 02/16/18 Cyclobenzaprine HCl 5 MG TABLET 1 TAB PO TIDPRN MUSCLE SPASM 30 Days Prescribed by Ryan Rodriguez on 03/23/16 Fluoxetine HCl (Prozac) 40 MG CAPSULE 1 CAP PO DAILY depression #14 CAP Prescribed by Nick Kulkarni MD on 03/06/18 Fluoxetine HCl (Prozac) 10 MG CAPSULE 1 CAP PO DAILY depression #14 CAP Prescribed by Nick Kulkarni MD on 03/06/18 Gabapentin 300 MG CAPSULE 3 CAP PO TID off-label for anxiety #126 CAP Prescribed by Nick Kulkarni MD on 02/16/18 Multivitamin (Once Daily) 1 EACH TABLET 1 TAB PO DAILY vitamin supplement #14 TAB Prescribed by Nick Kulkarni MD on 02/16/18 Trazodone HCl 100 MG TABLET 2 TAB PO AT BEDTIME insomnia #28 TAB Prescribed by Nick Kulkarni MD on 02/16/18 Scheduled PRN Medications Lidocaine (Lidoderm) 5 % ADH..PATCH 1 PAT TOP DAILY PRN pain #14 PAT Prescribed by Nick Kulkarni MD on 03/06/18 Nicotine (Nicorelief) 2 MG GUM 1 GUM PO Q2P PRN nicotine craving #100 GUM Prescribed by Nick Kulkarni MD on 02/16/18 Valacyclovir HCl (Valacyclovir) 1,000 MG TABLET 1 TAB PO DAILY PRN UNKNOWN #30 (Reported) Entered as Reported by Jeramie Fang on 04/17/18 1127 Lab Results: Microbiology 04/17 1232 STOOL: Clostridium difficile Toxin A & B - ORD 04/17 1232 STOOL: Stool Culture - ORD Toxicology Screen Completed? Yes Results: positive Past History Past Surgical History Surgical History R carpal tunnel. Abuse/Trauma History Trauma History/Current Trauma: emotional Victim or Perpretator? victim Patient's Age at Time of Trauma: 18 History of Trauma/Abuse Treatment? No (Pt uncertain) Abuse/Trauma Treatment: She states that she is not sure if she has ever had any treatment for her abuse history. Legal History Current Legal Status: none Have you ever been arrested? 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 However patient does report a period of time 5 years ago in which she was sober for 10 years. Pt is seeking help at this time. Physical Limitations (Interventions): By history- Chronic back pain s/t degenerative disc disease Psychiatric Treatment History Psych Treatment Psychiatric Treatment Yes Inpatient Treatment Yes Outpatient Treatment Yes Location of Treatment [facility] Reason for Treatment depression, substance abuse, +SI Dates of Treatment Last [facility] admit- 03/02/18-03/06/18 Response to Treatment pt has a pattern of not following up with discharge plans post discharge from [facility]. Pt missed her last intake at [facility]. Due to her missing 3+ intakes, she is no longer able to be rescheduled. Another discharge plan will need to be created upon discharge. Diagnosis by History: Major Depression, Alcohol Abuse, Opiate Abuse Risk Factors: chronic/serious med cond., history of suicide atmpts, SA/MH hospitalized, substance abuse, poor impulse control, lives alone, limited support Substance Use/Abuse History Drug Use/Abuse minimum 12mo Hx Substances Used/Abused Yes Substance Used/Abused Crack Cocaine First Use unk Last Used UDS + cocaine How much used/taken 1/8 of vodka How often daily For how long 1x/week Route of use oral Substance Abuse Treatment Substance Abuse Treatment Past Substance Abuse TX Yes Inpatient Treatment Yes Outpatient Treatment Yes Location of Treatment [facility], [facility], [facility], [facility], [facility] Reason for Treatment detox/ rehab for Abuse of multiple substances Dates of Treatment various Response to Treatment she has not been able to maintain soberity Sexual History Sexual Concerns: None noted Education History Highest Level of Education: some college Current Mental Status Mental Status Orientation: Person, Place, Situation Affect: Sad Speech: Soft Neuro-vegetative: Concentration Poor, Sleep Disturbance Appearance Appearance- Dress/Hygiene: Pt presents in hospital attire. Hair is unkempt. Hygiene is adequate. Behaviors Thought Process: WNL Thought Content: Visual Hallucinations (fly-aways ) Memory: WNL Insight: Fair SI/HI Risk Assessment - Minimum 6mo History- Past Suicidal Ideation/Attempts Yes Current Suicidal Ideation/Att Yes Past Homicidal Ideation/Att: No Current Homicidal Ideation/Attempts No Degree of Intent: overdosed on pills 04/14 Danger To: Self Risk Factors: chronic/serious med cond., history of suicide atmpts, SA/MH hospitalized, substance abuse, poor impulse control, lives alone, limited support Lethality Ratin Needs/Init TX Plan/Goals: Mood stabilization AUDIT-C Questionnaire: AUDIT-C Questionnaire: Response Value ETOH use in the past year 4 or more per week 4 # drinks typical/day 10 or more 4 6 or > drinks per occasion Daily/Almost Daily 4 Total 12 DSM5/PS Stressors/Medical Prob Diagnosis' (DSM 5, Stressors, Medical): F33.2 Major Depressive Disorder, Recurrent, Severe F10.20 Alcohol Use Disorder, Severe F14.20 Stimulant Use Disorder- Cocaine Type Medical: Degenerative Joint Disease by hx Stressors: finanes, lack of support system, housing (pending foreclosures) by hx Current GAF: 22
[2018-04-18] VITALS (12 sets, daily range): BP systolic 102–141; BP diastolic 55–75
--- NOTE | 2018-04-18 10:04 | History & Physical ---
General Information and HPI MD Statement: I have seen and personally examined ATIF THOMAS and documented this H&P. The patient is a 48 year old F who presented with a patient stated chief complaint of "I was drinking and I took pills". Source of Information: patient, EMS Exam Limitations: unable to give history History of Present Illness: 48-year-old white female was brought in by ambulance because of positive suicidal ideations and alcohol intake. She was brought in from home, per EMS the patient admitted to taking an unknown amount of trazodone gabapentin Prozac and alcohol. She told the EMS "let me go "let me ". She also used crack cocaine also to try to kill herself. In the emergency room her blood alcohol level was 237 and the test was positive for cocaine. Allergies/Medications Allergies: Coded Allergies: Penicillins (PER PT WAS TOLD A KID 03/12/16) Home Med list Armodafinil (Nuvigil) 250 MG TABLET 1 TAB PO QAM NARCOPLEPSY (Reported) Atomoxetine HCl (Strattera) 40 MG CAPSULE 1 CAP PO BID@0900,1600 ADHD Buspirone HCl 15 MG TABLET 1 TAB PO BID anxiety Cyclobenzaprine HCl 5 MG TABLET 1 TAB PO TIDPRN MUSCLE SPASM Fluoxetine HCl (Prozac) 40 MG CAPSULE 1 CAP PO DAILY depression part of 50 mg total daily dose Fluoxetine HCl (Prozac) 10 MG CAPSULE 1 CAP PO DAILY depression part of 50 mg total daily dose Gabapentin 300 MG CAPSULE 3 CAP PO TID off-label for anxiety Lidocaine (Lidoderm) 5 % ADH..PATCH 1 PAT TOP DAILY PRN pain Multivitamin (Once Daily) 1 EACH TABLET 1 TAB PO DAILY vitamin supplement Nicotine (Nicorelief) 2 MG GUM 1 GUM PO Q2P PRN nicotine craving Trazodone HCl 100 MG TABLET 2 TAB PO AT BEDTIME insomnia Valacyclovir HCl (Valacyclovir) 1,000 MG TABLET 1 TAB PO DAILY PRN UNKNOWN ( Reported) Compliance With Home Meds: UNKNOWN Past History Travel History Traveled to [place] past 21 day No Medical History Neurological: NONE EENT: NONE Cardiovascular: NONE Respiratory: NONE Gastrointestinal: NONE Hepatic: NONE Renal: NONE Musculoskeletal: degen joint disease Psychiatric: alcohol dependence, depression, substance abuse, ADHD Endocrine: NONE Blood Disorders: NONE Cancer(s): NONE 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 Home Who Do You Live With? self Services at Home: None Primary Language: Cypriot Functional Ability ADLs Independent: dressing, eating, toileting, bathing. Ambulation: independent IADLs Independent: shopping, housework, finances, food prep, telephone, transportation , medication admin. Review of Systems Review of Systems Constitutional: Reports: see HPI. Exam & Diagnostic Data Last 24 Hrs of Vital Signs/I&O Vital Signs Date Time Temp Pulse Resp B/P B/P Pulse O2 O2 Flow FiO2 Mean Ox Delivery Rate 04/18 747 96.4 91 114/66 04/18 0747 96.4 91 114/66 04/18 0532 98.9 66 122/75 04/18 0337 98.6 66 112/61 04/18 0040 98.9 66 102/55 04/17 2015 97.0 108 128/84 04/17 1955 97.0 108 128/84 04/17 1622 94 133/87 04/17 1602 94 133/87 04/17 1442 96 141/87 04/17 1419 97.2 96 141/84 04/17 1304 98.2 77 18 148/91 97 04/17 1039 98.1 80 18 144/93 96 Physical Exam General Appearance Alert, Oriented X3, Cooperative Skin No Rashes HEENT PERRLA, EOMI, Mucous Membr. moist/pink Neck Supple, No JVD, No thryomegaly, +2 Carotid Pulse wo Bruit Lymphatic Axillary nl, Cervical nl Cardiovascular Regular Rate, No Murmurs Lungs Clear to Auscultation, Normal Air Movement Abdomen Soft, No Tenderness, No Hepatospenomegaly Neurological Exam Findings: Normal Gait, Normal Speech, Strength at 5/5 X4 Ext, Normal Tone, Sensation Intact, Cranial Nerves 3-12 NL, Reflexes 2+ Cranial Nerves II through XII: Intact Extremities No Edema, Normal Pulses Vascular Normal Pulses, Pulses Symmetrical Last 24 Hrs of Labs/Ollie: Microbiology 04/17 1232 STOOL: Clostridium difficile Toxin A & B - COLB 04/17 1232 STOOL: Stool Culture - COLB Assessment/Plan As Ranked By This Provider Problem List: 1. Major depression 2. Cocaine abuse 3. Suicidal ideation Miscellaneous Miscellaneous Documentation Attending Case Discussed With: Janes Garcia MD Primary Care Physician: Willard aPtel MD Patient sees these Specialists Psychiatry Level of Patient Care: OTILIO Roy Consults Needed: Consulting Specialty: Psychiatry Consulting Physician: Dr. Kulkarni Reason for Consult: depression SI
--- NOTE | 2018-04-18 17:39 | CPS PROVIDER INIT ASMT PSYCH ---
Psychiatric Admission Division Chair's Note Reviewed: Yes Patient Seen and Examined: Yes (Seen with SW and PA student.) Identifying Information: 48 yo DWF admitted 04/17 on a vol basis, referred by ER. Chief Complaint: Overdose with pills while intoxicated with alcohol and cocaine. Reaction to Hospitalization: "I'm okay with it. I feel safe here." History of Present Illness Onset of Illness: Former drug dealer texted patient 3-4 weeks after last discharge and she relapsed. Circumstances Leading to Admission: As above. Didn't attend [facility]. Problem(s) Justifying Need for Admission: Overdose/substance use. Other HPI: "I tried to kill myself." Not sure what she ingested for OD. Doesn't remember how she got here. Reports that when she drinks alcohol, she wants to . Reports everything in her life is good. Working, was staying with Luis. She later revealed that Luis kicked her out last Tuesday for using. She returned to her place, which has no electricity. Sleep: poor last night, good at home. Appetite: okay. Energy: "depends." Case and treatment plan discussed in team meeting. Staff reports that the patient endorses SI. Tearful and said that her life is falling apart. Past Psychiatric History Past Diagnosis(es)- if any: Psy Discharge Primary Diag: Unspecified depression Psy Discharge Secondary Diag: Hx ADHD Alcohol use disorder Cocaine use disorder Past Precipitating Factors- if any: Substance use. - Include inpatient and outpatient treatment Treatment History: Outpatient: none. Did not go to [facility] because no transportation. Inpatient: 3-4x at . History of Suicide Attempts or Gestures This was first attempt. Substance Abuse History: Attends 12-steps 3-4x/week. Has had 15-18 detoxes. Has had multiple rehabs. Tobacco 1 ppd. Says she won't quit. Alcohol: 1 pint of vodka daily. No MJ. Cocaine $40-50/day smoked. Opiates: Naye's 30 mg, switched to Suboxone. Allergies: Coded Allergies: Penicillins (PER PT WAS TOLD A KID 03/12/16) Home Med List: Prozac 50 mg daily Trazodone 200 mg qhs Gabapentin 900 mg tid Strattera 40 mg daily Buspar 15 mg qAM Albuterol prn - Include any medical condition(s) that may - impact the patient's recovery/remission Past Medical History: S/p overdose. Asthma. DJD at back. Spinal stenosis. Fibromyalgia. Arthritis. 1 back surgery. Left carpal tunnel bothering her. Hx R carpal tunnel surgery. 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 Psychiatric Family/Social Hx Family History Psychiatric Illness: Denied. Substance Use: Father drinks. Suicides: Denied. Social History Living Situation: Was living with Luis in [place] but was kicked out 04/11/18. Significant Relationships (family/friends): Friend, Luis. Education: Some college. 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 Legal: Hx multiple arrests: Assault Burglary Possession Healthly Behaviors Screening Tobacco Screening Tobacco Use from ED Docu: Current Daily Use Daily Tobacco Use Amount/Type: => 5 Cigarettes daily - If tobacco counseling indicated - the following topics are required. - #1 Recognizing dangerous situations. - #2 Coping Skills. - #3 Basic information about quitting. Status of Tobacco Cessation Counseling: #1, #2 AND #3 Completed Cessation Med Status Nicotine Gum Ordered Alcohol Screening - ETOH screen POS if BAL >=80 or Audit-C>= M4/F3 Audit-C Score from Diag Assess: 12 Blood Alcohol Level: Lab Serum Alcohol 237.0 MG/DL 04/14/186 Alcohol Use Screening Results: Pos per Audit C &/or BAL - If ETOH counseling indicated - the following topics are required. - #1 Express concern about the patient's - drinking at unhealthy levels, include informing - of national norms for moderate drinking: - men <= 14 drinks/week, max 4 drinks/occasion - women <= 7 drinks/week, max 3 drinks/occasion - #2 Providing feedback, including linking alcohol to - negative physical effects (liver injury, hypertension) - negative emotional effects (relationship problems and - depression) - negative occupational consequences (reduced work - performance) - #3 Advising the patient to abstain from alcohol or - to drink below national norms for moderate drinking - (as listed above). Status of ETOH Use Counseling: #1, #2 AND #3 Completed. Metabolic Screening - Screen if on a Neuroleptic Medication - Metabolic screening should include: - Blood Pressure, BMI, Glucose or Hgb A1c, & a - Lipid profile from within the past 365 days. Metabolic Screening ([x]) Not Applicable, patient not on a neuroleptic. OR () Patient on a neuroleptic(s) . Enter below results for Hemoglobin A1C, and lipid panel if obtained during the last 365 days. BMI: 22.200 Blood Pressure: 129/72 Laboratory Results From [facility] (If applicable): Exam and Plan Mental Status Examination Ambulation Status: WNL. Appearance: Dressed in blue paper scrubs, in NAD. Attitude towards examiner: Calm, polite and cooperative. Psychomotor activity: There is no psychomotor agitation/retardation. Behavior: Unmarkable. Quality of speech: Normal in volume, rate and tone. Affect: Calm and blunted to depressed and tearful. Mood: Feels physically hot. Mood: "it's okay." Sad /10. Anxiety /. Feels hopeless, worthless and guilty. Does not feel helpless. Suicidal Ideation: Denies active SI. Has passive SI. Gives a safety promise for here. Homicidal Ideation: Denies HI. Hallucinations: Denies AH and VH. Paranoid/Delusional Material: Denies PI and magical montero. Difficulties with thought organization: None. Insight: Fair. Judgment: Was poor but improving. Orientation: Ox3. Cognition: Grossly intact. Memory Function: Grossly intact. Estimate of intellectual functioning: Average. Assets/Strengths Patient Identified Assets/Strengths: "I like to help people." Impression/Plan Impression and Plan: Patient is here after overdosing in the context of alcohol and cocaine use. Reportedly Luis kicked her out 1 week ago. - Include all active medical diagnosis that require tx DSM 5 Diagnosis(es): Major depression, recurrent, severe. Alcohol use disorder. Cocaine use disorder. - Initial Tx Plan for Active Psych & Medical Conditions Treatment Plan: The patient will be monitored on the unit for safety, withdrawal and mood disorder. Additional information is needed from collaterals. Anticipate once clinically stable, that the patient will be referred to IOP and to inpatient rehab. - Factors that would help patient function - in a less restrictive setting. Factors: Not suicidal.
--- NOTE | 2018-04-18 18:08 | SOCIAL WORKER PROG NOTE PSYCH ---
Social Work Progress Note Progress Note Dr. Kulkarni, Veronique Ramires (PA student) and this senior technical writer met with the patient. Patient stated that she came to the hospital after "I tried to kill myself. I took some pills and was drinking." Patient states that she has no memory of the attempt. She identified her cocaine and alcohol use the the trigger for the attempt. "When I drink alcohol I want to ." She stated that she has been drinking one or more pints of vodka per day and smoking $40-$50 worth of Cocaine per day. She also reports using 30mg of Naye and Suboxone. She stated that she was thrown out of her boyfriends house due to her substance use. Patient stated that she has been attending 12 step meetings, 3-4 times per week. She stated that she did not follow up with IOP after the last discharge due to not having transportation. Patient stated that she has attended multiple rehabs and detox' s. Regarding medical history, patient reported back surgeries, carpal tunnel syndrome. She denied any current legal issues, however has had legal involvement in the past. Patient does not have any children. Patient is . She stated that she had been living with her boyfriend, Alvaro Rios, until she was thrown out. Patient identified a goal to "have good sleep". She reported having a good appetite. Patient is agreeable to referrals to 30 day inpatient programs. She described her mood as "ok" and was alert and oriented x3.
--- NOTE | 2018-04-18 18:50 | SOCIAL WORKER PROG NOTE PSYCH ---
Social Work Progress Note Progress Note FREDERIC attempted to interview pt. for FREDERIC Social Hx. document but pt. refused, stating she was "tired". Pt. also refused AA meeting on the unit this evening.
[2018-04-19] VITALS (8 sets, daily range): BP systolic 114–131; BP diastolic 73–77
--- NOTE | 2018-04-19 14:22 | CP SOUTH PROGRESS NOTE PSYCH ---
Psych (Inpt) Progress Note Progress Note Include the following elements, when applicable: Involvement in the active treatment of the patient with behavioral observations of the patient and the patient's response to the treatment. Review of the ongoing treatment process in the context of the treatment plan. Indication of how multi-disciplinary staff members are carrying out the treatment plan. Plans for future interventions and recommendations for revision of the treatment plan. Liaison with other physicians/providers. Progress Note: Case and treatment plan discussed in team meeting. Staff reports that the patient is denying suicidal ideation. CIWA scores are unremarkable. Patient isolated after visitor left. Described as tearful yesterday. Patient seen at 10:43 AM. She was resting in bed but got up and met with me in office. I advised her that Prozac dose was increased on admission to 60 mg daily. Patient reported that things have changed because she now has nowhere to go. States her friend, Luis, is going on vacation to [place] and will return on Tuesday. She states that he does not trust her. Affect is fragile, anxious, depressed and crying. Mood is sad and scared. Rates sad mood 10/10 and anxiety 8/10. Feels hopeless, helpless, worthless and guilty. Reports suicidal ideation and gives a safety promise for here. Denies homicidal ideation. Denies auditory and visual hallucinations and paranoid ideation. Reports sleep was poor last night. Appetite is okay and energy is none. Tolerating medications well. Patient was reminded of risk of bad reaction, including possibly , if she is exposed to alcohol while on Antabuse. She was advised to avoid drugs, alcohol and while on Antabuse. IMPRESSION: Slow progress. Continue present treatment plan. Continues to require inpatient level of care. We are looking into a rehab placement as well as Crisis and Respite.
--- NOTE | 2018-04-19 14:56 | SOCIAL WORKER SOCIAL HX PSYCH ---
Social History Basic Assessment Insurance Authorization: Insurance #1: Insurance name: [employer] Phone number: Policy number: [id number] Group number: Authorization number: Curr Source of Income/Entitlements: employment Primary Care Physician: Patient's PCP: Willard Patel MD PCP's Present Problem: Patient is a 48 year old female BIBA last night intoxicated on a PEER after she told police she tried to kill herself by overdosing. Pt's BAL was 237 at 21:44 last night. Pt's UDS is positive for cocaine. Upon meeting with the pt she stated she just took some Ativan because she was withdrawing from Alcohol and was not feeling well. Pt reports she doesn't remember how she got her and what happened last night. The last thing she remembers is sitting on her couch drinking. She reports she was drinking 1/8 of vodka. Pt reports she took pills with the alcohol with the intent to kill herself. She does not recall what pills she took, however triage notes indicate she took Trazodone. ED also completed a tylenol level- to rule out tylenol toxicity- levels were normal. Pt was not able to identify a trigger for attempting suicide. Pt reports she did not follow up with IOP post discharge from [facility] (~6 weeks ago) because she did not have a ride. Pt reports she was sober for ~ three weeks after her discharge from [facility]. Pt's longest period of was 5 years ago and she was sober for 10 years. Pt's last detox was 09/2017 and last rehab was also 09/2017. Pt is currently living alone which is a risk factor. Pt plans to go live with a friend after this incident. Pt is agreeable to come inpatient. At this time, pt denies SI/HI/AH. Pt endorse fly-aways in her peripheral vision, likely symptom of etoh withdrawl. Additionally she reports she is shaking, sweating, weak, her legs hurt, she's hungry and had diarrehea. Pt's most recent CIWA score is 4, highest in ED 5. Nurse informed of pt's complaints. Crisis completed the C-SSRS with patient. Pt has the following risk factors: previous suicide attempts, recent suicide attempt by overdose, wishes to be , feeling alone, previous psych diagnoses, non compliant w/ treatment, not recieving tx, hopeless, helpless, major depressive episode, highly impulsive behavior, substance abuse, method of suicide available. Pt has the following protective factors "identifies reason for living". Pt requires inpatient psychiatric hospitalization. Pt will be a bed search [facility] is full. Primary Language? Palauan Language(s) Spoken At Home: Palauan Living Situation Other Living Arrangement: Lives with boyfriend Feel Safe Where You Are Living Yes Feel Safe in Relationships? Yes Allergies - Coded Allergies: Penicillins (PER PT WAS TOLD A KID 03/12/16) Current Medications - Scheduled Medications Armodafinil (Nuvigil) 250 MG TABLET 1 TAB PO QAM NARCOPLEPSY #30 (Reported) Entered as Reported by Jeramie Fang on 04/17/18 1126 Atomoxetine HCl (Strattera) 40 MG CAPSULE 1 CAP PO BID@0900,1600 ADHD #28 CAP Prescribed by Nick Kulkarni MD on 03/06/18 Buspirone HCl 15 MG TABLET 1 TAB PO BID anxiety #28 TAB Prescribed by Nick Kulkarni MD on 02/16/18 Cyclobenzaprine HCl 5 MG TABLET 1 TAB PO TIDPRN MUSCLE SPASM 30 Days Prescribed by Ryan Rodriguez on 03/23/16 Fluoxetine HCl (Prozac) 40 MG CAPSULE 1 CAP PO DAILY depression #14 CAP Prescribed by Nick Kulkarni MD on 03/06/18 Fluoxetine HCl (Prozac) 10 MG CAPSULE 1 CAP PO DAILY depression #14 CAP Prescribed by Nick Kulkarni MD on 03/06/18 Gabapentin 300 MG CAPSULE 3 CAP PO TID off-label for anxiety #126 CAP Prescribed by Nick Kulkarni MD on 02/16/18 Multivitamin (Once Daily) 1 EACH TABLET 1 TAB PO DAILY vitamin supplement #14 TAB Prescribed by Nick Kulkarni MD on 02/16/18 Trazodone HCl 100 MG TABLET 2 TAB PO AT BEDTIME insomnia #28 TAB Prescribed by Nick Kulkarni MD on 02/16/18 Scheduled PRN Medications Lidocaine (Lidoderm) 5 % ADH..PATCH 1 PAT TOP DAILY PRN pain #14 PAT Prescribed by Nick Kulkarni MD on 03/06/18 Nicotine (Nicorelief) 2 MG GUM 1 GUM PO Q2P PRN nicotine craving #100 GUM Prescribed by Nick Kulkarni MD on 02/16/18 Valacyclovir HCl (Valacyclovir) 1,000 MG TABLET 1 TAB PO DAILY PRN UNKNOWN #30 (Reported) Entered as Reported by Jeramie Fang on 04/17/18 1127 Past History Past Medical History Neurological: NONE EENT: NONE Cardiovascular: NONE Respiratory: NONE Gastrointestinal: NONE Hepatic: NONE Renal: NONE Musculoskeletal: degen joint disease Psychiatric: alcohol dependence, depression, substance abuse, ADHD Endocrine: NONE Blood Disorders: NONE Cancer(s): NONE 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 No Relationship w/Mother: By History- at 53yrs old, from Cancer (colon then spread throughout body) PT was 22yrs old when her Mother . Was very close to her Mother. Father's Age (Current/): 79 Relationship w/Father: She states that her father drinks and that she has to be selective of when she talks to him. Any Sibling(s)? Yes Sibling's Gender(s)/Age(s): female Sibling 1: Relationship w/Sibling(s): She reports that she has a good relationship with her sister, when pt is sober. Relationship w/Friends: She states that she does have a couple good friends and that those relationships are good when she is sober. Family Psych/Sub Abuse/Add Hx: drug of choice Abuse/Trauma History Trauma History/Current Trauma: emotional Victim or Perpretator? victim Patient's Age at Time of Trauma: 18 History of Trauma/Abuse Treatment? No (Pt uncertain) Abuse/Trauma Treatment: She states that she is not sure if she has ever had any treatment for her abuse history. Legal History Legal Guardian/Address/Phone: n/a Current Legal Status: none Pending Court Dates: denied Have you ever been arrested Yes Number of Arrests: 15 Hx of Juvenile Legal Charges? Yes If Yes: unknown Hx of Adult Legal Charges? Yes If Yes: She states that she had multiple offenses in the 90's for possession of narcotics, burglary, larceny, criminal mischief and assault List/Date Most Recent Lgl Chgs: She states that she had multiple charges in the all related to each other. She states that she is on probation currently, however will be getting off March 04. Chgs/Dts/Incarcerations/Sentnc none Civil Proceedings: Her house is in [facility] Domestic Relations Court: None noted Child Protective Serv Involvmnt N/A Bit Sander n/a Psychosocial History Primary Support System: friend Strengths/Capabilities: Pt has a long history of substance abuse and mental health issues. However patient does report a period of time 5 years ago in which she was sober for 10 years. Pt is seeking help at this time. Weaknesses: history of relapse Physical Limitations (Interventions): By history- Chronic back pain s/t degenerative disc disease Last Physical: past 6 months History of Seizures? No History of Blackouts? Yes Last Blackout: This past weekend ADL Limitations: No noted issues [place]/Social/Peer Relations She states that she does have friends and that the relationships are good when she is sober and clean Meaningful Activities: Work in the yard, read and watch tv. Pt stated that she loves animals. Childhood Shinto: Samaritan Current Pentecostal Affiliation: no mandaeism stated Is Spirituality Important to You? She states that she is not samaritan that she is very spiritual. Patient's Ethnicity: Ukrainian, [place]er, Montenegrin Cultural/Ethnic Issues: None noted Are There Developmental Issues? No Milestones Achieved: WNL Psychiatric Treatment History Psych Treatment Inpatient Treatment Yes Outpatient Treatment Yes Location of Treatment [facility] Reason for Treatment depression, substance abuse, +SI Dates of Treatment Last CPS admit- 03/02/18-03/06/18 Response to Treatment pt has a pattern of not following up with discharge plans post discharge from [facility]. Pt missed her last intake at [facility]. Due to her missing 3+ intakes, she is no longer able to be rescheduled. Another discharge plan will need to be created upon discharge. Treatment of Prior Episodes: [facility] and multiple substance abuse treatment facilities. Diagnosis: Major Depression, Alcohol Abuse, Opiate Abuse Psychodynamic Issues: Her father abuses alcohol Risk Factors: chronic/serious med cond., history of suicide atmpts, SA/MH hospitalized, substance abuse, poor impulse control Substance Use/Abuse History Drug Use/Abuse:Min 12 mo hx Substance Used/Abused Crack Cocaine First Use unk Last Used UDS + cocaine How much used/taken 1/8 of vodka How often daily For how long 1x/week Route of use oral Have Had Periods of Sobriety? Yes Explain: Pt stated that she has had two past significant periods or sobriety. One time was sober for 10 years and the other time was for 9 years. Relapse History? 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 Have You Ever Attended AA? Yes Do You Attend AA Currently? Yes Do You Have a Sponsor? Yes Other Community Resources Used: none reported Substance Abuse Treatment Substance Abuse Treatment Inpatient Treatment Yes Outpatient Treatment Yes Location of Treatment [facility], [facility], [facility], [facility], [place] Reason for Treatment detox/ rehab for Abuse of multiple substances Dates of Treatment various Response to Treatment she has not been able to maintain soberity Sexual History Sexually Active Yes # of partners 1 Sexual Orientation Heterosexual Use of Protection No Sexual Concerns: None noted Education History Highest Level of Education: some college Highest Grade Completed: 12 Vocational Year Completed: N/A Number of College Years: 1 College Degree/Major: N/A Other Degree(s): N/A HX of Learning Difficulties: None reported Barriers to Learning: None reported Special Communication Needs: None reported Employment History Employment Employed Vocation/Occupational Hx: 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 Prior job- by hx. 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 History Have You Been in The ? No If Yes, Explain: N/A Type of Discharge: N/A Date of Discharge: N/A Current Mental Status Mental Status Orientation: Person, Place, Situation Affect: Sad Speech: Soft Neuro-vegetative: Concentration Poor, Sleep Disturbance Appearance Appearance- Dress/Hygiene: Hygiene is adequate. Behaviors Thought Process: WNL Memory: WNL Insight: Fair SI/HI Risk Assessment Past Suicidal Ideation/Attempts Yes Current Suicidal Ideation/Att Yes Past Homicidal Ideation/Att: No Current Homicidal Ideation/Attempts No Degree of Intent: overdosed on pills 04/14 Danger To: Self Risk Factors: SA/MH Hospitalization(s), Hx of suicide attempt(s), Substance Abuse Lethality Ratin - Conclusion and Recommendations for treatment - and discharge planning
--- NOTE | 2018-04-19 18:29 | SOCIAL WORKER PROG NOTE PSYCH ---
Social Work Progress Note Progress Note This typewriter mechanic met with patient. She signed STEPHIE's for rehab programs. She presented as depressed and tearful, however, reported some alleviation of anxiety and improvement with mood after discussing plans to go to rehab and signing STEPHIE's. She reported SI earlier today and stated that her thoughts consisted of "I'd rather be ." Patient stated that she felt safe and agreed to immediately inform staff if feeling unsafe. She denied HI/AVH.
[2018-04-20 07:48] VITALS: BP 104/62
[2018-04-20 07:51] VITALS: BP 104/62
[2018-04-20 12:39] VITALS: BP 113/69
[2018-04-20 15:51] VITALS: BP 95/67
--- NOTE | 2018-04-20 16:54 | CP SOUTH PROGRESS NOTE PSYCH ---
Psych (Inpt) Progress Note Progress Note Include the following elements, when applicable: Involvement in the active treatment of the patient with behavioral observations of the patient and the patient's response to the treatment. Review of the ongoing treatment process in the context of the treatment plan. Indication of how multi-disciplinary staff members are carrying out the treatment plan. Plans for future interventions and recommendations for revision of the treatment plan. Liaison with other physicians/providers. Progress Note: Case and treatment plan discussed in team meeting. Staff reports that the patient is denying suicidal ideation. Appearing comfortable. Did not sleep well. Patient seen at 12:14 PM. States she is kind of melancholy today. States she is not sleeping; reports she slept about 2.5 hours. Affect is calm and blunted to depressed and tearful. Rates sad mood 7/10 and anxiety about 7/10. Denies feeling hopeless. Feels helpless, worthless and guilty. Denies active suicidal ideation. Reports passive suicidal ideation without plan. Gives a safety promise for here. Denies homicidal ideation. Denies auditory and visual hallucinations and paranoid ideation. Appetite is good. Energy: Reports today she is exhausted. Tolerating medications well. Patient is asking for help with sleep. I advised her to stop dinnertime coffee. We will now reduce Prozac to 50 mg daily in case 60 mg is activating her. We will now increase gabapentin from 900 mg 3 times a day to 900 mg b.i.d. and 1200 mg q.h.s. IMPRESSION: Slow progress. Continue present treatment plan. Continues to require inpatient level of care. Monitor response to medication changes above. Monitor for sleep disturbance.
--- NOTE | 2018-04-20 17:35 | SOCIAL WORKER PROG NOTE PSYCH ---
Social Work Progress Note Progress Note [facility] concurrent review entered: Determination Status: PENDED The services requested require additional review. You will be contacted regarding the status of this request if further information is needed. An authorization decision will be made within the required timeframes and details of that decision may be found under the member's authorization history. Member Name Member ID Member Subscriber Name Subscriber ID ATIF Shravan WILLIAM [id number] 1970 ATIF THOMAS [id number] Pended Authorization # Client Authorization # Type of Request [id number] CONCURRENT Date of Admission/ Start of Services Requested From Submission Date 04/17/2018 04/20/2018 04/20/2018 Level of Service Type of Service Level of Care Type of Care INPATIENT/HLOC Mental Health Inpatient Inpatient [facility] - [facility]
--- NOTE | 2018-04-20 18:25 | SOCIAL WORKER PROG NOTE PSYCH ---
Social Work Progress Note Progress Note This comic book writer met with patient. She presented as tearful and depressed, identifying her concern that she will not be accepted to a rehab and "have no where to go" as the trigger. Patient denied current SI, however reports ongoing thoughts wishing she were . She denied HI/hallucinations. Patient was informed that referrals had been faxed to all rehabs and was provided with a list of their phone numbers. She appeared very interested in calling these programs. This comic book writer and patient also completed the referral form to [facility], which was submitted following this meeting: Questionnaire and clinical (History and Physical, Social, Initial Assessment, Medication List, Demographics form, labs and psychiatrist progress note 04/19/19) faxed to [facility] at [phone] on 04/20/18 at 4:32pm. Demographics, History and Physical, Social, Diagnostic Assessment, Initial Assessment, Medication List were faxed to following rehab programs: - [facility], fax [phone] at 3:51pm - [facility], fax [phone] at 3:50pm - [facility], fax [phone] at 3:47pm - [facility], fax [phone] at 3:53pm - [facility], fax [phone] at 3:37pm - [facility], fax [phone] at 3:39pm
[2018-04-20 19:47] VITALS: BP 109/67
[2018-04-21 08:01] VITALS: BP 92/58
[2018-04-21 08:15] VITALS: BP 92/58
[2018-04-21 12:10] VITALS: BP 96/63
--- NOTE | 2018-04-21 15:41 | CP SOUTH PROGRESS NOTE PSYCH ---
Psych (Inpt) Progress Note Progress Note Include the following elements, when applicable: Involvement in the active treatment of the patient with behavioral observations of the patient and the patient's response to the treatment. Review of the ongoing treatment process in the context of the treatment plan. Indication of how multi-disciplinary staff members are carrying out the treatment plan. Plans for future interventions and recommendations for revision of the treatment plan. Liaison with other physicians/providers. Progress Note: Case and treatment plan discussed in team meeting. Staff reports that patient slept better last night. Interacting with peers. Loud and pressured. Refused to attend AA meeting last night. Patient seen at 11:58 AM with PA student. Patient appears awake and alert. Affect is brighter but blunted. Complains of left shoulder and back pain. Per patient request, I am ordering Flexeril p.r.n., which she has been on in the past. Reports mood is okay. Rates sad mood 4/10 and anxiety about 4/10. Denies feeling hopeless or helpless. Does feel worthless and guilty. Denies active suicidal ideation. Reports passive suicidal ideation. Gives a safety promise for here. Denies homicidal ideation. Denies auditory and visual hallucinations and paranoid ideation. Reports that calling rehabs today made her feel better, gives her hope and helps with her mood. Reports she slept well last night with recent medication changes. Appetite is good. Energy is okay right now. Tolerating medications well, without complaint. IMPRESSION: Slow progress. Continue present treatment plan. Anticipate likely discharge on Tuesday.
[2018-04-21 16:25] VITALS: BP 96/66
--- NOTE | 2018-04-21 18:20 | SOCIAL WORKER PROG NOTE PSYCH ---
See Addendum Social Work Progress Note Progress Note 1:05pm: This auto service writer spoke with Karolina at [facility] and Justa at [facility]. They were provided with some clinical information , specifically regarding discharge plans, however, both stated that they do not have any available beds today and requested a call on Tuesday. This auto service writer met with patient. She was informed of the calls to the respite programs. She completed an [facility] for [facility] should she go to the [facility] location and was agreeable to utilizing [facility]'s walk in hours for IOP should she go to [facility]. PAtient stated that she has been calling rehab programs throughout the day. Patient described her mood as "ok." She reported passive SI and stated that she does not have a plan. She denied Hi/ hallucinations. Patient will continue to call rehab programs through the weekend. this auto service writer provided encouragement for her efforts. 3:57pm This auto service writer returned call from Ava kurtz [facility] ([phone]) in which she inquired in a vm about patient's medications, specifically the Ativan. This auto service writer left a vm informing that she will not be prescribed Ativan upon discharge. Additionally, per Dr. Kulkarni's inquiry, this auto service writer asked if she would be able to attend their program if prescribed Flexeril. A call back number was provided.
[2018-04-21 19:44] VITALS: BP 106/69
[2018-04-22 07:37] VITALS: BP 109/61
--- NOTE | 2018-04-22 11:01 | CP SOUTH PROGRESS NOTE PSYCH ---
Psych (Inpt) Progress Note Progress Note Pt notes that she is "not too good" 2/2 back pain today. Notes difficulty with sleep overall. Very worried about discharge planning and "getting kicked out on the street." She does have a place to stay but the man is out of town until next week and will not allow her to stay there alone because "I use drugs." She notes that she is hopeful for a rehab placement. Denies SI or HI. Current Medications Sig/Bailee Start time Last Medication Dose Route Stop Time Status Admin Acetaminophen 650 MG Q6P PRN 04/18 1545 AC PO Al Hydroxide/Mg 30 ML Q4-6 PRN PRN 04/17 1400 AC Hydroxide PO Albuterol Sulfate 2 PUF Q4P PRN 04/18 1500 AC INH Benztropine Mesylate 1 MG Q6P PRN 04/18 1530 AC PO Benztropine Mesylate 1 MG Q6P PRN 04/18 1530 AC IM Buspirone HCl 15 MG BID 04/17 1353 AC 04/22 PO 0756 Cyclobenzaprine HCl 5 MG Q8P PRN 04/21 1200 AC 04/22 PO 0757 Disulfiram 250 MG DAILY 04/18 1529 AC 04/22 PO 0756 Fluoxetine HCl 40 MG DAILY 04/21 0900 AC 04/22 PO 0757 Fluoxetine HCl 10 MG DAILY 04/21 0900 AC 04/22 PO 0756 Gabapentin 1,200 MG AT BEDTIME 04/20 2100 AC 04/21 PO 2244 Gabapentin 900 MG 0900,1400 04/20 1400 AC 04/22 PO 0756 Haloperidol 5 MG Q6P PRN 04/18 1530 AC PO Haloperidol 5 MG Q6P PRN 04/18 1530 AC IM Lidocaine 1 PAT DAILY 04/22 1100 AC EXT Lorazepam 2 MG Q6P PRN 04/18 1530 AC IM Magnesium Hydroxide 30 ML AT BEDTIME NEED.. 04/17 1400 AC PO Melatonin 5 MG AT BEDTIME 04/22 2100 AC PO Melatonin 3 MG AT BEDTIME 04/17 2100 DC 04/21 PO 2244 Methyl Salicylate 1 ARABELLA Q6P PRN 04/22 1100 UNVr TOP Multivitamins 1 TAB DAILY 04/18 1552 AC 04/22 PO 0757 Nicotine 2 MG .STK-MED ONE 04/21 1911 DC PO 04/21 1912 Nicotine 2 MG Q2P PRN 04/17 1400 AC 04/22 PO 1003 Trazodone HCl 250 MG AT BEDTIME 04/22 2100 UNVr PO Trazodone HCl 50 MG AT BEDTIME NEED.. 04/22 1100 UNVr PO Trazodone HCl 200 MG AT BEDTIME NEED.. 04/18 2045 DC 04/21 PO 2245 Laboratory Tests 04/22 0620 Chemistry Sodium (137 - 145 mmol/L) 138 Potassium (3.5 - 5.1 mmol/L) 4.6 Chloride (98 - 107 mmol/L) 96 L Carbon Dioxide (22 - 30 mmol/L) 33 H Anion Gap (5 - 16) 8 Vital Signs Date Time Temp Pulse Resp B/P B/P Pulse O2 O2 Flow FiO2 Mean Ox Delivery Rate 04/22 0737 97.4 91 109/61 04/21 1944 97.1 96 106/69 04/21 1625 86 96/66 04/21 1210 90 96/63 MSE Appearance: as stated age Speech : nl rate, rhythm, volume and prosody Behavior: cooperative Motor: no psychomotor agitation or retardation Mood : not too good Affect : flat, non-labile, irritable, appropriate, constricted Thought process: linear and goal directed Thought content : no delusions or paranoia Perceptions: denied AVHs, denied SI or HI Insight: poor Judgment: poor A/P: Pt with MDD and PSD now with improved mood though concerned re discharge. Continue current medication regimen Encourage integration into the milieu
[2018-04-22 12:14] VITALS: BP 101/57
[2018-04-22 15:38] VITALS: BP 117/65
[2018-04-22 19:56] VITALS: BP 99/59
[2018-04-23 07:47] VITALS: BP 104/69
--- NOTE | 2018-04-23 12:11 | CP SOUTH PROGRESS NOTE PSYCH ---
Psych (Inpt) Progress Note Progress Note Pt ntoes that she slept better ovrall. Notes that lidocain patch was helpful. Feels very depressed and hopeless around her high risk of relapse. She denies SI or HI but notes passive vague "I rather be wish," which is longstanding. Current Medications Sig/Bailee Start time Last Medication Dose Route Stop Time Status Admin Acetaminophen 650 MG .STK-MED ONE 04/22 1739 DC PO 04/22 1740 Acetaminophen 650 MG Q6P PRN 04/18 1545 AC 04/22 PO 1740 Al Hydroxide/Mg 30 ML Q4-6 PRN PRN 04/17 1400 AC Hydroxide PO Albuterol Sulfate 2 PUF Q4P PRN 04/18 1500 AC INH Benztropine Mesylate 1 MG Q6P PRN 04/18 1530 AC PO Benztropine Mesylate 1 MG Q6P PRN 04/18 1530 AC IM Buspirone HCl 15 MG BID 04/17 1353 AC 04/23 PO 1000 Cyclobenzaprine HCl 10 MG Q8P PRN 04/23 1115 AC PO Cyclobenzaprine HCl 5 MG Q8P PRN 04/21 1200 DC 04/22 PO 2142 Disulfiram 250 MG DAILY 04/18 1529 AC 04/23 PO 1003 Fluoxetine HCl 40 MG DAILY 04/21 0900 AC 04/23 PO 1000 Fluoxetine HCl 10 MG DAILY 04/21 0900 AC 04/23 PO 1000 Gabapentin 1,200 MG AT BEDTIME 04/20 2100 AC 04/22 PO 2142 Gabapentin 900 MG 0900,1400 04/20 1400 AC 04/23 PO 1000 Haloperidol 5 MG Q6P PRN 04/18 1530 AC PO Haloperidol 5 MG Q6P PRN 04/18 1530 AC IM Lidocaine 1 PAT DAILY 04/22 1100 AC 04/23 EXT 1159 Lorazepam 2 MG Q6P PRN 04/18 1530 AC IM Magnesium Hydroxide 30 ML AT BEDTIME NEED.. 04/17 1400 AC PO Melatonin 5 MG AT BEDTIME 04/22 2100 AC 04/22 PO 2142 Methyl Salicylate 1 ARABELLA Q6P PRN 04/22 1100 AC TOP Multivitamins 1 TAB DAILY 04/18 1552 AC 04/23 PO 1000 Nicotine 2 MG Q2P PRN 04/17 1400 AC 04/23 PO 1001 Trazodone HCl 250 MG AT BEDTIME 04/22 2100 AC 04/22 PO 2141 Trazodone HCl 50 MG AT BEDTIME NEED.. 04/22 1100 AC PO Laboratory Tests 04/22 06 Chemistry Sodium (137 - 145 mmol/L) 138 Potassium (3.5 - 5.1 mmol/L) 4.6 Chloride (98 - 107 mmol/L) 96 L Carbon Dioxide (22 - 30 mmol/L) 33 H Anion Gap (5 - 16) 8 Vital Signs Date Time Temp Pulse Resp B/P B/P Pulse O2 O2 Flow FiO2 Mean Ox Delivery Rate 04/23 0747 97.5 93 104/69 04/22 1956 97.1 87 99/59 04/22 1538 82 117/65 04/22 1214 98 101/57 MSE Appearance: as stated age Speech : nl rate, rhythm, volume and prosody Behavior: cooperative Motor: no psychomotor agitation or retardation Mood : alright Affect : non-labile, very irritable, appropriate, constricted Thought process: linear and goal directed Thought content : no delusions or paranoia Perceptions: denied AVHs, denied SI or HI Insight: poor Judgment: poor A/P: Pt with MDD and PSD now with improved mood though concerned re discharge and risk of relapse. Continue current medication regimen except increased flexeril Encourage integration into the milieu
[2018-04-23 12:15] VITALS: BP 112/56
[2018-04-23 15:40] VITALS: BP 102/66
[2018-04-23 19:41] VITALS: BP 112/68
[2018-04-24 08:44] VITALS: BP 106/60
[2018-04-24] MEDS ORDERED: PROAIR HFA8.5 GM INH (12:55)
[2018-04-24] MEDS ORDERED: ONCE DAILY1 EACH PO (12:55)
[2018-04-24] MEDS ORDERED: TRAZODONE HCL50 M1 PO (12:55)
[2018-04-24] MEDS ORDERED: LIDODERM1 EACH TOP ×2 (12:55→14:24)
[2018-04-24] MEDS ORDERED: GABAPENTIN300 M2 PO (12:55)
[2018-04-24] MEDS ORDERED: BUSPIRONE HCL15 M1 PO (12:55)
[2018-04-24] MEDS ORDERED: PROZAC10 M1 PO (12:55)
[2018-04-24] MEDS ORDERED: MELATONIN5 M7 PO (12:55)
[2018-04-24] MEDS ORDERED: STRATTERA40 M1 PO (12:55)
[2018-04-24] MEDS ORDERED: DISULFIRAM250 M1 PO (12:55)
[2018-04-24] MEDS ORDERED: CYCLOBENZAPRINE5 M2 PO (12:55)
[2018-04-24] MEDS ORDERED: TRAZODONE HCL100 M1 PO (12:55)
[2018-04-24] MEDS ORDERED: NICORELIEF2 MG PO (12:55)
[2018-04-24] MEDS ORDERED: PROZAC40 M1 PO (12:55)
--- NOTE | 2018-04-24 13:05 | Patient Discharge Instructions ---
Psych Discharge Inst General Discharge Information Reason for Admission: Overdose/substance use. Psy Discharge Primary Diag+ Major depress,rec, severe Psy Discharge Secondary Diag+ Alcohol use disorder Cocaine use disorder ADHD Summary Tests/Major Procedures Lab ALT 35 U/L 04/14/184 AST 37 U/L H 04/14/182143 BUN 10 mg/dL 04/14/18 214 Carbon Dioxide 33 mmol/L H 04/22/1820 Chloride 96 mmol/L L 04/22/1820 Creatinine 0.5 mg/dL 04/14/182143 Estimated GFR > 60 ml/min 04/14/182143 Glucose 112 mg/dL H 04/14/182143 Potassium 3.0 mmol/L L 04/14/182143 Potassium 4.6 mmol/L 04/22/18619 Sodium 138 mmol/L 04/22/18619 Total Beta HCG NEGATIVE 04/14/182143 INR 1.10 04/14/182049 PT 12.0 SEC 04/14/182049 Hct 40.3 % 04/14/182049 Hgb 13.6 G/DL 04/14/182049 MCH 31.3 PG H 04/14/182049 MPV 6.8 FL L 04/14/182049 Plt Count 356 /CUMM 04/14/182049 WBC 5.5 /CUMM 04/14/182049 Acetaminophen < 10.0 ug/mL L 04/14/182143 Serum Alcohol 237.0 MG/DL 04/14/182143 Urine Cocaine Screen > 1000 NG/ML H 04/14/182244 EKG 04/14/18 showwed baseline artifact/wander, sinus rhythm @ 79, low voltage in frontal leads, prolonged QT interval, slower rate since previous tracing. Abnormal EKG. QT 448. QTc 514. Studies Pending at DC: Today's EKG. Patient Instructions Contact Information Your Psychiatrist [facility] was Nick Kulkarni MD * If you are experiencing an emergency related to this hospitalization, please call [phone] to contact the treating psychiatrist or the psychiatrist-on- call. * To Request a copy of your medical records, please contact the Medical Records Department at [phone]. * To request results of studies pending at the time of discharge, please call [phone]. * Continue your Medications until directed to stop by your Healthcare provider. General Medication Information Please continue to take your new medications and your continued home medications , unless otherwise indicated on your discharge medication list, or unless directed by your MD or [facility] to stop them. Special Instructions Diet Regular Activity Normal Other Inst/Recommendations Stay away from drugs/alcohol! See PCP about abnormal labs/EKG. - Tobacco Use Treatment Offered Post DC Medications Offered: Script Given-See Med List Post DC Tobacco Treatment Plan: [facility] Appt Date: 04/26/18 Program Appt Time: 1600 - EtOH/Drug Use D/O Treatment Offered Post DC Medications Offered: Script Given-See Med List (Antabuse) Post DC EtOH/SubAbuse TX Plan: Other SubAbuse/Dual Pgm (APT IOP) Program Appt Date: 04/25/18 Program Appt Time: 0830 (Walk-in) Metabolic Screening ([x]) Not Applicable, patient not on a neuroleptic. OR () Patient on a neuroleptic(s) . Enter below results for Hemoglobin A1C, and lipid panel if obtained during the last 365 days. BMI: 22.200 Blood Pressure: 106/60 Laboratory Results From [facility] EHR (If applicable): Advance Directives Does the Patient have Medical Advance Directives No/Refused further info Does Pt have Psychiatric Advance Directives? No/Refused further info Does Patient have a Designated Surrogate Decision Maker: No Information About Psychiatric Advance Directives Provided? Refused Discharge Plan Post Hospital Treatment Plan: Referred to [facility] in [place]. Referred to [facility] in [place].
--- NOTE | 2018-04-24 13:52 | SOCIAL WORKER PROG NOTE PSYCH ---
Social Work Progress Note Progress Note This medical writer spoke with Ava at [facility] ([phone]) who stated that the patient has been accepted into their rehab, however, there are no beds available. She anticipated a 2 week wait. This medical writer spoke with Justa at [facility] [place] regarding a phone screening. She requested that the patient call her later this afternoon for the screening. This medical writer spoke with Jacqueline with [facility] in [place] in interest of a phone screening. Jacqueline requested a call back later this afternoon as there was no one available for the screening. This medical writer spoke with [facility] ([phone]) on [address] [place] [address] in [place], [place] to schedule an intake for IOP in the event that she is accepted to the [place] [facility]. The intake is scheduled for 04/25/18 at 2:30pm. This medical writer met with patient. Patient was informed that [facility] accepted her, however does not have any available beds. This medical writer assisted patientn in calling the [place] [facility] at 10:10am for the screening, which she did. Justa at [facility] stated that she would contact this medical writer with the decision of whether patient is accepted. This medical writer assisted patient in calling [facility] in [place] and spoke with Jacqueline. Jacqueline stated that there were no available beds today. This medical writer and patient called Alvaro Rios ([phone]) at 10:20am. Alvaro was informed that the patient had been accepted to [facility] and that we are waiting for a decision from [facility]. Alvaro denied having any safety concerns for the patient, denied that there were any weapons or guns in the home (patient denied having access to weapons or guns). Regarding patient's overdose, patient stated that she does not have any remaining pills at home. Alvaro requested that he be provided an update once we have received a decision from [facility]. She discussed feeling anxious about discharging today, regarding concerns about relapse. Patient identified a plan that she could utilize in which she would call the crisis numbers and warm line numbers that will be provided upon discharge. She also identified Luis and "my friend Dot" that she could call. Patient denied SI/HI/hallucinations. This medical writer received call that the patient has been accepted to [facility] with an available bed today. 12:05pm This medical writer spoke with Alvaro Rios by phone to inform of the crisis and respite acceptance. He felt that this is a safe plan for the patient. He stated, "eventually she needs to take responsibility for herself." STEPHIE for [facility] was faxed to [place] at their request. 2:06pm This medical writer spoke with Otis at [facility] and a ride for immediate pick and shovel worker was schedule to transport the [facility] to [facility], [address] [place] [address] 2:45pm This medical writer called Abhishek back and spoke with Stephanie regarding the ride This medical writer spoke with Justa at [facility] confirming that patient will be transported by [facility] from the hospital to their facility today. Justa was also provided with the following information: 1. 25/04 contact information: Dr. Kulkarni [phone] 2. Contact information for obtaining results of studies pending: Dr. Kulkarni 3. Plan for Follow up care: [facility] while waiting for a rehab bed at [facility]; Justa was also informed of the IOP and phone ([phone]) 4. Primary physician at site desginated for follow up care: [facility]/Dr. Sapp
--- NOTE | 2018-04-24 14:23 | CP SOUTH PROGRESS NOTE PSYCH ---
Psych (Inpt) Progress Note Progress Note Include the following elements, when applicable: Involvement in the active treatment of the patient with behavioral observations of the patient and the patient's response to the treatment. Review of the ongoing treatment process in the context of the treatment plan. Indication of how multi-disciplinary staff members are carrying out the treatment plan. Plans for future interventions and recommendations for revision of the treatment plan. Liaison with other physicians/providers. Progress Note: Dr. Angel's notes reviewed. Case and treatment plan discussed in team meeting. Staff reports that the patient is denying suicidal ideation. There is a 2 week waiting list for placement at [facility]. We located a bed at [facility]. Described as stable. Not appearing depressed. Patient seen at 10:44 AM. bag worker informed me that the patient is appearing somewhat ataxic. This may relate to increase in Flexeril dose to 10 mg. We will reduce dose on discharge. Patient is swinging her legs. States she is "not good." States she didn't realize she probably would have to go today, although we told her of this. Feels a little scared. Had hoped to stay until Tuesday. Affect is blunted to tearful. Reports she has sad mood at 9/ 10 and scared mood at 10/10. When asked if feeling hopeless, she responded "I don't know." Feels helpless, worthless and guilty. Denies suicidal ideation, stating "not right this minute, because there is nothing here for me to do it with." We have had ample opportunity to monitor the patient during her 1 week here. She has not evidenced any self-harm behavior here. I do not believe her to pose a credible risk for imminent suicide. Denies homicidal ideation. Denies auditory and visual hallucinations and paranoid ideation. Reports sleep is good and appetite is fine. Reports energy is none. Tolerating medications well. Earlier EKG showed QT prolongation. Repeat EKG done this afternoon, computer reading, was normal. IMPRESSION: The patient has achieved maximum hospital benefit. Okay for discharge today to [facility] [place] with referral to [facility].
--- NOTE | 2018-04-24 14:31 | DISCHARGE SUMMARY REPORT-PSYCH ---
Visit Information Visit Dates/Diagnosis' Admission Date: 04/17/18 Discharge Date: 04/24/18 Reason for Admission: Overdose/substance use. Psy Discharge Primary Diag: Major depress,rec, severe Psy Discharge Secondary Diag: Alcohol use disorder Cocaine use disorder ADHD Hospital Course Significant Lab Findings: Lab ALT 35 U/L 04/14/182143 AST 37 U/L H 04/14/182143 BUN 10 mg/dL 04/14/182143 Carbon Dioxide 33 mmol/L H 04/22/1820 Chloride 96 mmol/L L 04/22/18619 Creatinine 0.5 mg/dL 04/14/182143 Estimated GFR > 60 ml/min 04/14/182143 Glucose 112 mg/dL H 04/14/182143 Potassium 3.0 mmol/L L 04/14/182143 Potassium 4.6 mmol/L 04/22/18619 Sodium 138 mmol/L 04/22/18619 Total Beta HCG NEGATIVE 04/14/182143 INR 1.10 04/14/182049 PT 12.0 SEC 04/14/182049 Hct 40.3 % 04/14/182049 Hgb 13.6 G/DL 04/14/182049 MCH 31.3 PG H 04/14/182049 MPV 6.8 FL L 04/14/182049 Plt Count 356 /CUMM 04/14/182049 WBC 5.5 /CUMM 04/14/182049 Acetaminophen < 10.0 ug/mL L 04/14/182143 Serum Alcohol 237.0 MG/DL 04/14/182143 Urine Cocaine Screen > 1000 NG/ML H 04/14/182244 EKG 04/14/18 showwed baseline artifact/wander, sinus rhythm @ 79, low voltage in frontal leads, prolonged QT interval, slower rate since previous tracing. Abnormal EKG. QT 448. QTc 514. EKG 04/24/18 at 13:18:22 (computer reading) showed sinus rhythm at 89, normal EKG , QT 376, QTc 458. Course Complications: None. Consultations: The patient was seen by Dr. Willard Patel for admission H&P. Please refer to his note for additional information. Allergies: Coded Allergies: Penicillins (PER PT WAS TOLD A KID 03/12/16) Hospital Course/TX Response: The patient was monitored on the unit for safety, substance withdrawal and mood disorder. She participated in multi-modal treatments on the unit. Detox was uncomplicated. Nuvigil was not continued. Strattera was restarted at a lower dose of 40 mg daily. Prozac was increased to 60 mg daily, later reduced back to 50 mg daily because of insomnia. Gabapentin was increased from 900 mg t.i.d. to 900 mg b.i.d. and 1200 mg qhs. Mood has improved modestly. Patient cannot return to Luis's home while he is away for 1 week. Progress note from date of discharge, 04/24/18: "Dr. Angel's notes reviewed. Case and treatment plan discussed in team meeting. Staff reports that the patient is denying suicidal ideation. There is a 2 week waiting list for placement at [facility]. We located a bed at [facility]. Described as stable. Not appearing depressed. Patient seen at 10:44 AM. long term care social worker informed me that the patient is appearing somewhat ataxic. This may relate to increase in Flexeril dose to 10 mg. We will reduce dose on discharge. Patient is swinging her legs. States she is "not good." States she didn't realize she probably would have to go today, although we told her of this. Feels a little scared. Had hoped to stay until Tuesday. Affect is blunted to tearful. Reports she has sad mood at 9/ 10 and scared mood at 10/10. When asked if feeling hopeless, she responded "I don't know." Feels helpless, worthless and guilty. Denies suicidal ideation, stating "not right this minute, because there is nothing here for me to do it with." We have had ample opportunity to monitor the patient during her 1 week here. She has not evidenced any self-harm behavior here. I do not believe her to pose a credible risk for imminent suicide. Denies homicidal ideation. Denies auditory and visual hallucinations and paranoid ideation. Reports sleep is good and appetite is fine. Reports energy is none. Tolerating medications well. Earlier EKG showed QT prolongation. Repeat EKG done this afternoon, computer reading, was normal. IMPRESSION: The patient has achieved maximum hospital benefit. Okay for [facility] today to [facility] [place] with referral to [facility]." Discharge HBIPS - Tobacco Use Treatment Offered Post DC Medications Offered: Script Given-See Med List Post DC Tobacco Treatment Plan: [facility] Appt Date: 04/26/18 Program Appt Time: 1600 - EtOH/Drug Use D/O Treatment Offered Post DC Medications Offered: Script Given-See Med List (Antabuse) Post DC EtOH/SubAbuse TX Plan: Other SubAbuse/Dual Pgm ([facility]) Program Appt Date: 04/25/18 Program Appt Time: 0830 (Walk-in) Metabolic Screening - Screen if on a Neuroleptic Medication - Metabolic screening should include: - Blood Pressure, BMI, Glucose or Hgb A1c, & a - Lipid profile from within the past 365 days. Metabolic Screening ([x]) Not Applicable, patient not on a neuroleptic. OR () Patient on a neuroleptic(s) . Enter below results for Hemoglobin A1C, and lipid panel if obtained during the last 365 days. BMI: 22.200 Blood Pressure: 106/60 Laboratory Results From [facility] (If applicable): Discharge Instructions General Discharge Information Multiple Neuroleptics: ([x]) Not Applicable OR Document below three failed attempts at monotherapy, or a plan to taper to monotherapy, or augmentation of Clozapine. () Discharge Diet Regular Discharge Activity Normal DC Disposition: [facility] [place]. Referrals Ordered Referrals Provider Referral 04/24/18 For Providers: [[facility]] For Groups: [facility] [address] [place] [address] Patient will be transported to [facility] on 04/24[facility]. Provider Referral 04/25/18 For Groups: [[facility]] [facility] [address], [place] Patient will utilize walk in hours for IOP intake assessment on 04/25/18, between 8:30am and 11am. Walk in hours: Tuesday-Tuesday 8:30am-11:00am Provider Referral 04/26/18 For Providers: [[facility]] For Groups: [[facility]] [facility] [address] [phone] Group meets every other Tuesday at 4pm Next group: 04/26/18, at 4pm Prescriptions Stop taking the following medications: Gabapentin (Gabapentin) 300 MG CAPSULE ORAL THREE TIMES DAILY Qty = 126 Fluoxetine HCl (Prozac) 40 MG CAPSULE ORAL DAILY Qty = 14 Armodafinil (Nuvigil) 250 MG TABLET ORAL Every Morning Qty = 30 Continue taking these medications: Valacyclovir HCl (Valacyclovir) 1,000 MG TABLET 1 Tablet ORAL DAILY as needed for UNKNOWN Qty = 30 Comments: NOT TAKEN IN HOSPITAL Cyclobenzaprine HCl (Cyclobenzaprine HCl) 5 MG TABLET 1 Tablet ORAL THREE TIMES A DAY NEEDED Qty = 42 Comments: Last Taken:10 MG TAKEN ON 04/24/18 0845 NOW CHANGED TO 5MG TID Time: This prescription has been renewed Nicotine (Nicorelief) 2 MG GUM 1 Gum ORAL EVERY 2 HOURS NEEDED as needed for nicotine craving Qty = 100 Comments: Last Taken:04/23/18 Time:1836 This prescription has been renewed Fluoxetine HCl (Prozac) 40 MG CAPSULE 1 Capsule ORAL DAILY Qty = 14 Instructions: part of 50 mg total daily dose Comments: Last Taken:04/24/18 Time: 0845 This prescription has been renewed Fluoxetine HCl (Prozac) 10 MG CAPSULE 1 Capsule ORAL DAILY Qty = 14 Instructions: part of 50 mg total daily dose Comments: Last Taken:04/24/18 Time: 0845 This prescription has been renewed Trazodone HCl (Trazodone HCl) 100 MG TABLET 2 Tablet ORAL AT BEDTIME Qty = 28 Comments: Last Taken:04/23/18 Time:2200 200MG GIVEN This prescription has been renewed Buspirone HCl (Buspirone HCl) 15 MG TABLET 1 Tablet ORAL TWICE DAILY Qty = 28 Comments: Last Taken:04/24/18 Time:0847 This prescription has been renewed Multivitamin (Once Daily) 1 EACH TABLET 1 Tablet ORAL DAILY Qty = 14 Comments: Last Taken:04/24/18 Time:0800 This prescription has been renewed Lidocaine (Lidoderm) 5 % ADH..PATCH 1 Patch On the skin DAILY as needed for pain Qty = 30 Comments: Last Taken:04/23/18 Time:1159 This prescription has been renewed Start taking the following new medications: Gabapentin (Gabapentin) 300 MG CAPSULE 1 Capsule ORAL SEE INSTRUCTIONS Qty = 140 No Refills Instructions: Take 3 caps bid @ 08 and 14 and 4 caps qhs. Comments: Last Taken:04/24/18 Time:0900 Trazodone HCl (Trazodone HCl) 50 MG TABLET 1 Tablet ORAL AT BEDTIME as needed for SLEEP Qty = 14 No Refills Disulfiram (Disulfiram) 250 MG TABLET 1 Tablet ORAL DAILY Qty = 14 No Refills Comments: Last Taken:04/24/18 Time:0845 Melatonin (Melatonin) 5 MG TABLET 1 Tablet ORAL AT BEDTIME Qty = 14 No Refills Comments: Last Taken:04/23/18 Time:2130 Albuterol Sulfate (Proair Hfa) 90 MCG HFA.AER.AD 2 PUFF Inhale through mouth EVERY SIX HOURS NEEDED as needed for asthma Qty = 1 No Refills Comments: Last Taken:NOT TAKEN DURING THIS HOSPITALIZATION Time: The following medications have been changed: Old: Atomoxetine HCl (Strattera) 40 MG CAPSULE 1 Capsule ORAL TWICE DAILY Qty = 28 New: Atomoxetine HCl (Strattera) 40 MG CAPSULE 1 Capsule ORAL DAILY Qty = 14 Other Inst/Recommendations Stay away from drugs/alcohol! See PCP about abnormal labs/EKG. Studies Pending at Discharge None. Copies To: [facility]; Jorge BUCKLEY,Willard
--- NOTE | 2018-04-24 15:52 | SOCIAL WORKER PROG NOTE PSYCH ---
Social Work Progress Note Faxed Referral(s) Referred To: [facility] Care Documents sent: Health Summary, W10 Faxed to: Admissions/RN Fax #: [phone] Faxed by: Nessa Melchor LCSW Date faxed: 04/24/18 Time Faxed: [phone]
--- NOTE | 2018-04-24 15:54 | SOCIAL WORKER PROG NOTE PSYCH ---
Social Work Progress Note Faxed Referral(s) Referred To: [facility] Documents sent: Health Summary, W10 Faxed to: [facility]/RN Fax #: [phone] Faxed by: Nessa Melchor LCSW Date faxed: 04/24/18 Time Faxed: [phone]
--- NOTE | 2018-04-24 18:00 | IP INCIDENTAL NOTE PSYCH ---
Incidental Note Notation: Official reading from 04/24/18 EKG: normal ECG.
== END 2018-04-24 15:28 | DRG 754 ==
LOC: ERH 20:26 → CP SOUTH 04-17 13:33 → ERHI 04-17 13:33 → EDBEDREQ 04-17 13:40 → ENTRNSPT 04-17 13:59 → EDTRNSPTSTS 04-17 14:08 → CP SOUTH 04-17 14:15 → CMPTRNSPT 04-17 14:21 → CP SOUTH 04-17 16:32
PROVIDERS: Physician Assistant
DX: F32.9 Major depressive disorder, single episode, unspecified (principal); F10.10 Alcohol abuse, uncomplicated
CPT/HCPCS: 36415; 71045; 80307; 81025; 87015; 87045; 87899; 87899-59; 93005; 93010; 96361; 96374; G0463; G0480; J3101; J3490